=== PATIENT | male | born 1945 | race Caucasian/White ===

== ENCOUNTER 2020-01-05 14:50 | Inpatient (IN) | payer MEDICARE, BC, SELFPAY ==
[2020-01-05] VITALS (13 sets, daily range): BP systolic 114–138; BP diastolic 68–85; PULSE 39–62; RESP 16–40; TEMP 36.1–36.8; O2SAT 93–97; BMI 30.7
--- NOTE | 2020-01-05 | DI.ECHO.S_ITS ---
[facility] +---------+ [facility] +---------+ : : [address] : : : : [id number] : : : : Phone: [phone]+ Echocardiogram Report + + :Name: YANIRA HARMAN V Study Date: 01/06/2020 Height: 73 in : :[facility] Weight: 220 lb : : Gender: Male BSA: 2.2 m2 : :: 1945 Age: 74 yrs BP: 123/85 mmHg: :Reason For Study: DYSPNEA : :Ordering Physician: Karly KELLYformed By: Nella Collins : :Referring: PRATIK KELLY : + + Interpretation Summary Left ventricular systolic function is moderate to severely reduced with an estimated ejection fraction of 25 to 30% with a moderate dyssynchronous contraction pattern, suggestive of a conduction abnormality, but no obvious focal wall motion abnormality. Left ventricular volumes are moderately increased with an estimated end-diastolic volume of 152 mL. Diastolic function is challenging to assess but there is probable elevated filling pressures. The right ventricle is moderately enlarged with moderate to severely reduced systolic function. Pulmonary artery systolic pressure is estimated around 45 mmHg with a CVP of around 8 mmHg. There is severe biatrial enlargement. There is moderate mitral and tricuspid regurgitation. 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 and a severity ratio of 0.22. There is mild aortic regurgitation present. The ascending aorta is mildly enlarged. The patient appears to be in atrial fibrillation at 42 to 58 bpm throughout the study but clinical correlation is recommended. Procedure: A two-dimensional transthoracic echocardiogram with color flow and Doppler was performed. The study quality was technically adequate. There is no prior echocardiogram noted for this patient. The patient was in atrial fibrillation with heart rates between 42-58 bpm during the exam. The patient had occasional PVCs during the exam. Left Ventricle: The left ventricle is moderately dilated. The estimated left ventricular end diastolic volume is 152 ml. Left ventricular systolic function is moderate to severely reduced. The ejection fraction is estimated to be 25- 30%. There is moderate to severe global hypokinesis of the left ventricle. There is a significant dyssynchronous contraction pattern, consistent with a conduction abnormality. There are no focal wall motion abnormalities. Diastolic parameters suggest a restrictive filling pattern consistent with probable significantly elevated filling pressures. Right Ventricle: The right ventricle is moderately dilated. Right ventricular systolic function is moderate to severely reduced. Atria: Both atria are severely dilated. There is no Doppler evidence for an interatrial shunt. Mitral Valve: There is moderate mitral annular calcification. The mitral valve leaflets appear mildly thickened, but open well. There is moderate mitral regurgitation. Aortic Valve: The aortic valve is not well visualized. The aortic valve is severely calcified. There is severely reduced leaflet mobility. There is severe aortic stenosis. The peak aortic velocity is 4.9 m/sec. The aortic valve mean gradient is 52 mmHg. The calculated aortic valve area is .86 cm2. There is mild aortic regurgitation. Tricuspid Valve: The tricuspid valve leaflets are thin and pliable. There is moderate tricuspid regurgitation. The right ventricular systolic pressure is estimated to be at least 45 mmHg based on an estimated right atrial pressure of 8 mm Hg. Pulmonic Valve: The pulmonic valve leaflets are thin and pliable; valve motion is normal. There is trace pulmonic regurgitation. Great Vessels: The aortic root is normal size. The ascending aorta is mildly enlarged. The IVC is dilated (diameter is greater than 2.1 cm) yet it collapses greater than 50% with a sniff. This suggests a right atrial pressure of 8 mm Hg. Pericardium/ Pleura There is no pericardial effusion. MMode/2D Measurements & Calculations LVIDd: 5.1 cm LVOT diam: 2.2 cm LVIDs: 4.3 cm Ao root diam: 2.2 cm FS: 15.8 % asc Aorta Diam: 3.6 cm EPSS: 1.3 cm Ao Arch Diam (Prox Trans): 2.6 cm IVSd: 0.72 cm LVPWd: 0.91 cm LV prado. diameter/BSA (cm/m^2): 2.3 LV sys. diameter/BSA (cm/m^2): 1.9 LA A2 area: 39.0 cm2 RA long axis: 7.8 cm LA A4 area: 34.3 cm2 RA area: 32.1 cm2 LA length (vol): 8.0 cm RA vol: 112.4 ml LA vol: 142.6 ml RA : 50.1 ml/m2 LA vol index: 63.7 ml/m2 IVC diam: 2.1 cm RVD1 (basal): 4.6 cm TAPSE: 1.2 cm Doppler Measurements & Calculations Ao V2 max: 492.4 cm/sec LVOT Max Jose: 111.7 cm/sec Ao V2 mean: 340.2 cm/sec LV V1 max P.0 mmHg Ao max P.0 mmHg LV V1 VTI: 29.3 cm Ao mean P.5 mmHg DUONG(I,D): 0.86 cm2 Ao V2 VTI: 132.7 cm DUONG(V,D): 0.88 cm2 sev ratio: 0.22 DUONG indexed to BSA (cm^2/m^2): 0.38 MV E max jose: 103.6 cm/sec TR max jose: 303.9 cm/sec MV A max jose: 52.1 cm/sec TR max P.9 mmHg MV E/A: 2.0 PA V2 max: 99.8 cm/sec Med Peak E' Jose: 4.2 cm/sec PA V2 mean: 54.2 cm/sec E/E' med: 24.8 PA mean P.6 mmHg Lat Peak E' Jose: 5.5 cm/sec PA pr(Accel): 37.9 mmHg E/E' lat: 18.9 E/e' average: 21.9 MV dec time: 0.14 sec SV(LVOT): 114.2 ml Reading Physician:01:06 PM
--- NOTE | 2020-01-05 15:06 | DI.RAD.S_ITS ---
PROCEDURE: XR CHEST 2V INDICATIONS: shortness of breath TECHNIQUE: 2 views of the chest were acquired. COMPARISON: None. FINDINGS: Surgical changes and devices: None. Lungs and pleura: Right lower lung alveolar opacity and small right effusion. Patchy left lung base opacity. No left effusion. No pneumothorax. Interstitial markings are mildly thickened bilaterally. Mediastinum: Mediastinal contours are normal. Heart size is enlarged. Bones and chest wall: No suspicious bony abnormalities. Soft tissues appear unremarkable. IMPRESSION: 1. Bibasilar alveolar opacities and small right effusions. Findings may indicate pneumonia or mild edema. Dictated by: Kaylen Muller M.D. on 01/05/2020 at 15:10 Approved by: Kaylen Muller M.D. on 01/05/2020 at 15:12
--- NOTE | 2020-01-05 15:48 | ED_ITS ---
HPI - SOB/Dyspnea <Danyel CareyCRISTHIAN - Last Filed: 01/05/20 18:34> General Chief Complaint: Shortness of Breath/Dyspnea Stated Complaint: short of breath, anxiety Time Seen by Provider: 01/05/20 15:19 Source: patient Mode of arrival: Ambulatory Limitations: no limitations History of Present Illness HPI Narrative: This is a 74-year-old male, nonsmoker, has history of hypertension and hyperlipidemia presents to ED with spouse with chief complain of exertional dyspnea, orthopnea that is causing him to have panic attacks night, right foot swelling, lack of energy which started about 6-7 months ago but became severely worse for last 4-5 days. Patient reports he has to stop to catch breath walking a short distance. Patient denies chest pain, fever, chills, nausea, vomiting, cough, sore throat, or recent exposure to Covid 19. Patient moved from [facility] to [place] and does not have PCP in town. 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 Currently he is taking Dilt 180 mg ER daily for hypertension. Patient also takes Losartan and full dose of ASA, Atorvastatin. Patient reports stop taking HCTZ about 1.5 years ago. Spouse states his heart rates been in mid 50s for last 1 year. Related Data Home Medications Medication Instructions Recorded Confirmed OMEGA-3/DHA/EPA/FISH OIL (Seadrift-3 3,000 units PO DAILY #0 12/05/10 01/05/20 Fish Oil Softgel) allopurinol 300 mg PO QDAY #0 12/05/10 01/05/20 losartan [Cozaar] 100 mg PO BEDTIME #0 12/05/10 01/05/20 aspirin 325 mg PO DAILY 01/05/20 01/05/20 atorvastatin 40 mg PO BEDTIME 01/05/20 01/05/20 cholecalciferol (vitamin D3) 50 mcg PO DAILY 01/05/20 01/05/20 [Vitamin D3] cyanocobalamin (vitamin B-12) 5,000 mcg PO DAILY 01/05/20 01/05/20 diltiazem HCl 180 mg PO DAILY 01/05/20 01/05/20 Allergies Allergy/AdvReac Type Severity Reaction Status Date / Time No Known Drug Allergies Allergy Verified 01/05/20 15:07 Review of Systems <CRISTHIAN Fernandes - Last Filed: 01/05/20 18:34> Review of Systems Narrative: General: Denies fever, chills, (+) fatigue, (+) malaise, sweats. HEENT: Denies sinus pain, ear pain, sore throat, difficulty swallowing, dizziness. Respiratory: See HPI Cardiovascular: See HPI Gastrointestinal: Denies nausea, vomiting, abdominal pain, diarrhea, constipation, melena. : Denies dysuria, frequency, incontinence, hematuria, urinary retention. Musculoskeletal: Denies weakness, joint pain or bony pain. Skin: Denies rash, skin lesions, or other. Neurologic: Denies weakness, headache, numbness, change in speech, confusion, seizures, incoordination. Psychiatric: No concerning psychosocial issues. 12-point review of systems is negative except for those stated above. Patient History <CRISTHIAN Fernandes - Last Filed: 01/05/20 18:34> Medical History (Updated 01/05/20 @ 20:37 by CRISTHIAN Luna) Elevated PSA (Acute) Gout (Acute) Hyperlipidemia (Acute) Hypertension (Acute) Surgical History (Updated 01/05/20 @ 20:38 by CRISTHIAN Luna) History of left hip replacement (Acute) Family History (Updated 01/05/20 @ 20:39 by CRISTHIAN Luna) Father Lung cancer Tobacco use disorder, severe, in controlled environment, dependence Mother Dementia Social History household members: spouse Smoking Status: Never smoker alcohol intake: current substance use type: does not use Smoking Status: Unknown if ever smoked alcohol intake frequency: 0-2 drinks per day Substance Use Type: does not use Exam <CRISTHIAN Fernandes - Last Filed: 01/05/20 18:34> Narrative Exam Narrative: GEN: Alert, oriented x 3, well appearing and nourished. Mild tachypnea rate in 30/min. Head: Normal cephalic, atraumatic. No scalp or temporal tenderness, palpable mass or rash. EYES: Pupils are equal, round, and reactive to light and accommodation. Extraocular muscles are intact bilaterally. There is no subconjunctival hemorrhage, exudate and sclera non-icteric. ENT: Hearing grossly intact. Nose without bleeding, purulent discharge or de viation. Facial sinuses nontender to palpate. Mucous membrane moist, no mucosal lesion. Throat without erythema, tonsillar hypertrophy or exudate. Uvula in midline, airway patent. Neck: Trachea in midline. No JVD, non-tender without lymphadenopathy. No masses or thyroid megaly. Supple, non-tender and no meningeal signs. CARDIAC: Slow irregular rate and rhythm with murmurs. No gallops, or rubs. No chest wall tenderness. Plus one peripheral edema in right foot, No cyanosis or pallor. Capillary refill is less than 2 seconds. RESPIRATORY: Lungs are clear to auscultate bilaterally. No cough, wheezes, rales, or rhonchi. No stridor, respiratory distress, increase work of breathing , but tachypnea rate in 30/min. No accessary muscle used. ABD: Abdomen soft, nontender and non-distended. No guarding or rebound tenderness to palpate. Bowel sounds are normal in all 4 quadrants. There is no palpable masses or organomegaly. EXT: Full painless ROM of all extremities with no loss of sensation, strength, effusion or edema. SKIN: Warm, dry, normal color for patient. No erythema, lesions or rash over visible areas. BACK: Nontender without deformity or crepitance. No flank tenderness. NEUROLOGICAL: Alert and oriented to place, time and person. Sensation and motor function intact bilaterally. No facial droops, dysphasia. PSYCHIATRIC: Good judgement and reason, without hallucinations, abnormal affect or abnormal behaviors during the examination. Patient is not suicidal. Initial Vital Signs Initial Vital Signs: Vital Signs Temperature 98.1 F 01/05/20 15:02 Pulse Rate 55 L 01/05/20 15:02 Respiratory Rate 24 01/05/20 15:02 Blood Pressure 138/74 01/05/20 15:02 Pulse Oximetry 94 01/05/20 15:02 <Lin Xavier MD - Last Filed: 01/06/20 07:23> Initial Vital Signs Initial Vital Signs: Vital Signs Temperature 98.1 F 01/05/20 15:02 Pulse Rate 55 L 01/05/20 15:02 Respiratory Rate 24 01/05/20 15:02 Blood Pressure 138/74 01/05/20 15:02 Pulse Oximetry 94 01/05/20 15:02 Scores <Danyel Carey [facility] - Last Filed: 01/05/20 18:34> GCS Rebecca coma scale eye opening: Spontaneous [place] coma scale verbal response: Orientated Rebecca coma scale motor response: Obey commands [place] coma scale total score: 15 HEART Score Heart Score history: Moderately Suspicious Heart Score EKG: Non-Specific repolarization disturbance Heart Score Age: > or = 65 years old Heart Score risk factors: 1-2 risk factors Heart Score troponin: < or = to normal limit Heart Score Total: 5 Course <Danyel Carey [facility] - Last Filed: 01/05/20 18:34> Orders Ordered: Acetaminophen (Tylenol) 650 mg PO Q6HR PRN PRN Reason: Fever/Mild Pain (1-3) Allopurinol (Zyloprim) 300 mg PO DAILY [facility] Aspirin (Aspirin Ec) 81 mg PO DAILY [facility] Atorvastatin Calcium (Lipitor) 40 mg PO BEDTIME [facility] Last Admin: 01/05/20 21:03 Dose: 40 mg Documented by: KERMIT Diltiazem HCl (Cardizem Sr) 60 mg PO BID [facility] Diphenhydramine HCl (Benadryl) 25 mg PO BEDTIME PRN PRN Reason: Insomnia Enoxaparin Sodium (Lovenox) 40 mg SUBCUT DAILY [facility] Furosemide (Lasix) 40 mg IV 08,1999 [facility] Losartan Potassium (Cozaar) 100 mg PO BEDTIME [facility] Last Admin: 01/05/20 21:02 Dose: 100 mg Documented by: KERMIT Ondansetron HCl (Zofran) 4 mg IV Q8HR PRN PRN Reason: Nausea And Vomiting Sodium Chloride (Normal Saline 0.9% Flush) 10 ml IV PRN PRN PRN Reason: Flush Sodium Chloride (Normal Saline 0.9% Flush) 10 ml IV BID [facility] Discontinued Medications Furosemide (Lasix) 40 mg IV NOW ONE Stop: 01/05/20 17:01 Last Admin: 01/05/20 17:26 Dose: 40 mg Documented by: CODY Furosemide (Lasix) 40 mg IV NOW ONE Stop: 01/05/20 20:31 Last Admin: 01/05/20 21:09 Dose: 40 mg Documented by: KERMIT Reevaluation(s) Reevaluation #1: Patient has been on oxygen 3 L nasal cannula due to hypoxia at 91% in room air. Patient was setting 95% with using nasal cannula oxygen. Time: 17:20 Consultations Consultation #1: Dr. Carlisle consulted for admission for symptomatic heart failure with elevated proBNP and hypoxia, slow AFib rate in 40s to 50s who is currently taking diltiazem 180 mg ER daily and treatment with diuresis and further workup since patient does not have primary care physician and patient's librarian locally and reporting no history of AFib or heart failure in the past. Dr. Carlisle states will evaluate the patient at bedside in ER. Time: 17:13 Consultation #2: Dr. eVga call back to informed the acceptance of patient's care under observation for heart failure Time: 17:25 Vital Signs Vital signs: Vital Signs - 8 hr 01/05/20 15:02 01/05/20 15:13 01/05/20 15:30 Temperature 98.1 F Pulse Rate 55 L 53 L Respiratory Rate 24 24 Blood Pressure 138/74 129/78 Pulse Oximetry 94 94 01/05/20 15:31 01/05/20 16:00 01/05/20 16:15 Temperature Pulse Rate 55 L 62 52 L Respiratory Rate 25 H 24 31 H Blood Pressure 121/73 138/79 Pulse Oximetry 93 93 93 01/05/20 16:30 01/05/20 17:00 Temperature Pulse Rate 41 L 39 L Respiratory Rate 23 24 Blood Pressure 117/68 116/77 Pulse Oximetry 97 95 <Lin Xavier MD - Last Filed: 01/06/20 07:23> Orders Ordered: Acetaminophen (Tylenol) 650 mg PO Q6HR PRN PRN Reason: Fever/Mild Pain (1-3) Allopurinol (Zyloprim) 300 mg PO DAILY [facility] Aspirin (Aspirin Ec) 81 mg PO DAILY [facility] Atorvastatin Calcium (Lipitor) 40 mg PO BEDTIME [facility] Last Admin: 01/05/20 21:03 Dose: 40 mg Documented by: KERMIT Diltiazem HCl (Cardizem Sr) 60 mg PO BID [facility] Diphenhydramine HCl (Benadryl) 25 mg PO BEDTIME PRN PRN Reason: Insomnia Enoxaparin Sodium (Lovenox) 40 mg SUBCUT DAILY [facility] Furosemide (Lasix) 40 mg IV 0800,2000 [facility] Losartan Potassium (Cozaar) 100 mg PO BEDTIME [facility] Last Admin: 01/05/20 21:02 Dose: 100 mg Documented by: KERMIT Ondansetron HCl (Zofran) 4 mg IV Q8HR PRN PRN Reason: Nausea And Vomiting Sodium Chloride (Normal Saline 0.9% Flush) 10 ml IV PRN PRN PRN Reason: Flush Sodium Chloride (Normal Saline 0.9% Flush) 10 ml IV BID [facility] Discontinued Medications Furosemide (Lasix) 40 mg IV NOW ONE Stop: 01/05/20 17:01 Last Admin: 01/05/20 17:26 Dose: 40 mg Documented by: CODY Furosemide (Lasix) 40 mg IV NOW ONE Stop: 01/05/20 20:31 Last Admin: 01/05/20 21:09 Dose: 40 mg Documented by: KERMIT Vital Signs Vital signs: Vital Signs - 8 hr 01/05/20 15:02 01/05/20 15:13 01/05/20 15:30 Temperature 98.1 F Pulse Rate 55 L 53 L Respiratory Rate 24 24 Blood Pressure 138/74 129/78 Pulse Oximetry 94 94 01/05/20 15:31 01/05/20 16:00 01/05/20 16:15 Temperature Pulse Rate 55 L 62 52 L Respiratory Rate 25 H 24 31 H Blood Pressure 121/73 138/79 Pulse Oximetry 93 93 93 01/05/20 16:30 01/05/20 17:00 Temperature Pulse Rate 41 L 39 L Respiratory Rate 23 24 Blood Pressure 117/68 116/77 Pulse Oximetry 97 95 MDM - SOB/Dyspnea <Danyel CRISTHIAN Carey - Last Filed: 01/05/20 18:34> Differential Diagnosis Differential diagnosis: Likely congestive heart failure and other (Slow/Adithya AFib, NSTEMI) Medical Records Attestation: I reviewed the patient's medical records. Lab Data Attestation: I reviewed the patient's lab results. Result diagrams: 01/06/20 03:38 01/06/20 03:38 Labs: Lab Results 01/05/20 01/05/20 01/05/20 Range/Units 16:00 16:00 16:00 WBC 5.7 (4.5-11.0) X10^3/uL RBC 4.77 (4.5-5.9) X10^6/uL Hgb 15.7 (13.5-17.5) g/dL Hct 47.5 (41-53) % MCV 99.6 (80-100) fL MCH 33.0 (26-34) PG MCHC 33.1 (30-36) % RDW 16.2 H (11.6-14.8) % Plt Count 127 L (150-400) X10^3/uL Neut % (Auto) 56.4 (50-75) % Lymph % (Auto) 29.3 (25-40) % [place] % (Auto) 12.1 (3-14) % Eos % (Auto) 1.1 L (2-4) % Baso % (Auto) 1.1 (0-2) % Neut # (Auto) 3200 (1766-0875) /uL Lymph # (Auto) 1700 (9800-9701) /uL [place] # (Auto) 700 (0-900) /uL Eos # (Auto) 100 (0-450) /uL Baso # (Auto) 100 (0-100) /uL PT (10.1-12.7) SECONDS INR (0.9-1.3) APTT (26.4-36.2) SECONDS Sodium 138 (137-145) mmol/L Potassium 4.5 (3.4-5.1) mmol/L Chloride 101 (98-107) mmol/L Carbon Dioxide 29 (22-32) mmol/L BUN 17 (9-20) mg/dL Creatinine 0.85 (0.66-1.25) mg/dL Estimated GFR > 60.0 (>60) mL/min BUN/Creatinine Ratio 20.0 (6-22) Glucose 96 (80-110) mg/dL Calcium 9.4 (8.4-10.2) mg/dL Magnesium (1.6-2.3) mg/dL Total Bilirubin 1.0 (0.2-1.3) mg/dL AST 48 (17-59) IU/L ALT 27 (<50) IU/L Alkaline Phosphatase 221 H (38-126) U/L Total Creatine Kinase 135 (55-170) U/L CK-MB (CK-2) 2.22 (<2.37) ng/mL CK-MB (CK-2) Rel Index 1.6 (1.5-5.0) % Troponin I 0.016 (0.01-0.034) ng/mL NT-Pro-B Natriuret Pep 1540 H (<450) pg/mL Total Protein 7.8 (6.3-8.2) g/dL Albumin 4.2 (3.5-5.0) g/dL Globulin 3.6 (1.7-4.1) g/dL Albumin/Globulin Ratio 1.2 (1.0-2.8) Lipase 102 (23-300) U/L Procalcitonin (<0.5) ng/mL COVID-19 PCR (Negative) 01/05/20 01/05/20 01/05/20 Range/Units 16:00 16:00 16:00 WBC (4.5-11.0) X10^3/uL RBC (4.5-5.9) X10^6/uL Hgb (13.5-17.5) g/dL Hct (41-53) % MCV (80-100) fL MCH (26-34) PG MCHC (30-36) % RDW (11.6-14.8) % Plt Count (150-400) X10^3/uL Neut % (Auto) (50-75) % Lymph % (Auto) (25-40) % [place] % (Auto) (3-14) % Eos % (Auto) (2-4) % Baso % (Auto) (0-2) % Neut # (Auto) (0730-2983) /uL Lymph # (Auto) (0637-0192) /uL [place] # (Auto) (0-900) /uL Eos # (Auto) (0-450) /uL Baso # (Auto) (0-100) /uL PT 13.7 H (10.1-12.7) SECONDS INR 1.2 (0.9-1.3) APTT 31 (26.4-36.2) SECONDS Sodium (137-145) mmol/L Potassium (3.4-5.1) mmol/L Chloride (98-107) mmol/L Carbon Dioxide (22-32) mmol/L BUN (9-20) mg/dL Creatinine (0.66-1.25) mg/dL Estimated GFR (>60) mL/min BUN/Creatinine Ratio (6-22) Glucose (80-110) mg/dL Calcium (8.4-10.2) mg/dL Magnesium 2.0 (1.6-2.3) mg/dL Total Bilirubin (0.2-1.3) mg/dL AST (17-59) IU/L ALT (<50) IU/L Alkaline Phosphatase (38-126) U/L Total Creatine Kinase (55-170) U/L CK-MB (CK-2) (<2.37) ng/mL CK-MB (CK-2) Rel Index (1.5-5.0) % Troponin I (0.01-0.034) ng/mL NT-Pro-B Natriuret Pep (<450) pg/mL Total Protein (6.3-8.2) g/dL Albumin (3.5-5.0) g/dL Globulin (1.7-4.1) g/dL Albumin/Globulin Ratio (1.0-2.8) Lipase (23-300) U/L Procalcitonin (<0.5) ng/mL COVID-19 PCR Negative (Negative) 01/05/20 Range/Units 16:00 WBC (4.5-11.0) X10^3/uL RBC (4.5-5.9) X10^6/uL Hgb (13.5-17.5) g/dL Hct (41-53) % MCV (80-100) fL MCH (26-34) PG MCHC (30-36) % RDW (11.6-14.8) % Plt Count (150-400) X10^3/uL Neut % (Auto) (50-75) % Lymph % (Auto) (25-40) % [place] % (Auto) (3-14) % Eos % (Auto) (2-4) % Baso % (Auto) (0-2) % Neut # (Auto) (0670-6213) /uL Lymph # (Auto) (1300-0011) /uL [place] # (Auto) (0-900) /uL Eos # (Auto) (0-450) /uL Baso # (Auto) (0-100) /uL PT (10.1-12.7) SECONDS INR (0.9-1.3) APTT (26.4-36.2) SECONDS Sodium (137-145) mmol/L Potassium (3.4-5.1) mmol/L Chloride (98-107) mmol/L Carbon Dioxide (22-32) mmol/L BUN (9-20) mg/dL Creatinine (0.66-1.25) mg/dL Estimated GFR (>60) mL/min BUN/Creatinine Ratio (6-22) Glucose (80-110) mg/dL Calcium (8.4-10.2) mg/dL Magnesium (1.6-2.3) mg/dL Total Bilirubin (0.2-1.3) mg/dL AST (17-59) IU/L ALT (<50) IU/L Alkaline Phosphatase (38-126) U/L Total Creatine Kinase (55-170) U/L CK-MB (CK-2) (<2.37) ng/mL CK-MB (CK-2) Rel Index (1.5-5.0) % Troponin I (0.01-0.034) ng/mL NT-Pro-B Natriuret Pep (<450) pg/mL Total Protein (6.3-8.2) g/dL Albumin (3.5-5.0) g/dL Globulin (1.7-4.1) g/dL Albumin/Globulin Ratio (1.0-2.8) Lipase (23-300) U/L Procalcitonin < 0.05 (<0.5) ng/mL COVID-19 PCR (Negative) Imaging Data Chest x-ray: Radiologist's Impression: [address] [id number] XRay Report Signed Patient: Lee Gleason R#: [id number] : 3Acct:[id number] Age/Sex: 74 / MDate of Service: 01/05/20 Loc: ED Accession Number: [id number] Procedure: XR chest 2V Ordering Provider: Lin Xavier MD PROCEDURE: XR CHEST 2V INDICATIONS: shortness of breath TECHNIQUE: 2 views of the chest were acquired. COMPARISON: None. FINDINGS: Surgical changes and devices: None. Lungs and pleura: Right lower lung alveolar opacity and small right effusion. Patchy left lung base opacity. No left effusion. No pneumothorax. Interstitial karla ings are mildly thickened bilaterally. Mediastinum: Mediastinal contours are normal. Heart size is enlarged. Bones and chest wall: No suspicious bony abnormalities. Soft tissues appear unremarkable. IMPRESSION: 1. Bibasilar alveolar opacities and small right effusions. Findings may ind icate pneumonia or mild edema. Dictated by: Kaylen Muller M.D. on 01/05/2020 at 15:10 Approved by: Kaylen Muller M.D. on 01/05/2020 at 15:12 ECG Data Attestation: I personally reviewed and interpreted this ECG as follows: Prior ECG tracings: not available for review Interpretation: Atrial fibrillatio with rate at 54 with PVC Left dominant axis. FL interval *, QRS duration 104, QT/QTC 332/[address] changes MDM Narrative Medical decision making narrative: This is a 74-year-old male who has history of hypertension presents to ED with worsening symptoms exertional dyspnea, orthopnea, right leg swelling for last 4-5 days. Patient initially noticed this about 6-7 months ago and noticed more frequent last 4-5 days but now it is causing him like panic attacks and afraid to go to sleep due to orthopnea. Patient also reports fatigue. No chest pain, fever, nausea, vomiting, chills, c ough, sore throat. EKG shows slow AFib rate at 50s. Bedside heart rate runs from low 40s to 50. Patient is currently taking Dilt ER 180 mg daily and losartan 100 mg daily. Patient is slow AFib is likely due to super therapeutic diltiazem effect. Patient is taking full dose aspirin daily but no other anticoagulants. Patient denies history of heart failure but used to take HCTZ that stopped 1 and half year ago. Physical exam appreciated murmur worse in left-sided sternal border and irregular to auscultate. Chest x-ray shows bibasilar alveolar opacity and small right effusion indicating pneumonia or mild edema. Given patient does not have fever and cough, it is likely patient has pulmonary edema. Stable H&H of 15.7/47.5. Slightly low in platelet count of 127. PT is 13.7 with INR of 1.2. Normal kidney function and unremarkable chemistry test. Slightly elevated alkaline phosphatase of 221. ProBNP is 15 40 indicating patient is fluid overloaded. Normal lipase today. Troponin is 0.016. Patient given 14 mg of IV Lasix and has been voiding. Patient was given O2 by nasal cannula on 3 L to have O2 sat greater than 93% in ED. at 1 point patient was satting 91% in room air at rest. Given patient does not have PCP established locally and states no history of AFib or heart failure, it to be best for patient to be admitted for additional workup such as echocardiogram and adjusting his medications to improve AFib bradycardia and diuretics for heart failure. Dr. Carlisle kindly accepted the patient's care. <Lin Xavier MD - Last Filed: 01/06/20 07:23> Lab Data Labs: Lab Results 01/05/20 01/05/20 01/05/20 Range/Units 16:00 16:00 16:00 WBC 5.7 (4.5-11.0) X10^3/uL RBC 4.77 (4.5-5.9) X10^6/uL Hgb 15.7 (13.5-17.5) g/dL Hct 47.5 (41-53) % MCV 99.6 (80-100) fL MCH 33.0 (26-34) PG MCHC 33.1 (30-36) % RDW 16.2 H (11.6-14.8) % Plt Count 127 L (150-400) X10^3/uL Neut % (Auto) 56.4 (50-75) % Lymph % (Auto) 29.3 (25-40) % [place] % (Auto) 12.1 (3-14) % Eos % (Auto) 1.1 L (2-4) % Baso % (Auto) 1.1 (0-2) % Neut # (Auto) 3200 (6519-2095) /uL Lymph # (Auto) 1700 (9582-9006) /uL [place] # (Auto) 700 (0-900) /uL Eos # (Auto) 100 (0-450) /uL Baso # (Auto) 100 (0-100) /uL PT (10.1-12.7) SECONDS INR (0.9-1.3) APTT (26.4-36.2) SECONDS Sodium 138 (137-145) mmol/L Potassium 4.5 (3.4-5.1) mmol/L Chloride 101 (98-107) mmol/L Carbon Dioxide 29 (22-32) mmol/L BUN 17 (9-20) mg/dL Creatinine 0.85 (0.66-1.25) mg/dL Estimated GFR > 60.0 (>60) mL/min BUN/Creatinine Ratio 20.0 (6-22) Glucose 96 (80-110) mg/dL Calcium 9.4 (8.4-10.2) mg/dL Magnesium (1.6-2.3) mg/dL Total Bilirubin 1.0 (0.2-1.3) mg/dL AST 48 (17-59) IU/L ALT 27 (<50) IU/L Alkaline Phosphatase 221 H (38-126) U/L Total Creatine Kinase 135 (55-170) U/L CK-MB (CK-2) 2.22 (<2.37) ng/mL CK-MB (CK-2) Rel Index 1.6 (1.5-5.0) % Troponin I 0.016 (0.01-0.034) ng/mL NT-Pro-B Natriuret Pep 1540 H (<450) pg/mL Total Protein 7.8 (6.3-8.2) g/dL Albumin 4.2 (3.5-5.0) g/dL Globulin 3.6 (1.7-4.1) g/dL Albumin/Globulin Ratio 1.2 (1.0-2.8) Lipase 102 (23-300) U/L Procalcitonin (<0.5) ng/mL COVID-19 PCR (Negative) 01/05/20 01/05/20 01/05/20 Range/Units 16:00 16:00 16:00 WBC (4.5-11.0) X10^3/uL RBC (4.5-5.9) X10^6/uL Hgb (13.5-17.5) g/dL Hct (41-53) % MCV (80-100) fL MCH (26-34) PG MCHC (30-36) % RDW (11.6-14.8) % Plt Count (150-400) X10^3/uL Neut % (Auto) (50-75) % Lymph % (Auto) (25-40) % [place] % (Auto) (3-14) % Eos % (Auto) (2-4) % Baso % (Auto) (0-2) % Neut # (Auto) (3610-3759) /uL Lymph # (Auto) (2661-1189) /uL [place] # (Auto) (0-900) /uL Eos # (Auto) (0-450) /uL Baso # (Auto) (0-100) /uL PT 13.7 H (10.1-12.7) SECONDS INR 1.2 (0.9-1.3) APTT 31 (26.4-36.2) SECONDS Sodium (137-145) mmol/L Potassium (3.4-5.1) mmol/L Chloride (98-107) mmol/L Carbon Dioxide (22-32) mmol/L BUN (9-20) mg/dL Creatinine (0.66-1.25) mg/dL Estimated GFR (>60) mL/min BUN/Creatinine Ratio (6-22) Glucose (80-110) mg/dL Calcium (8.4-10.2) mg/dL Magnesium 2.0 (1.6-2.3) mg/dL Total Bilirubin (0.2-1.3) mg/dL AST (17-59) IU/L ALT (<50) IU/L Alkaline Phosphatase (38-126) U/L Total Creatine Kinase (55-170) U/L CK-MB (CK-2) (<2.37) ng/mL CK-MB (CK-2) Rel Index (1.5-5.0) % Troponin I (0.01-0.034) ng/mL NT-Pro-B Natriuret Pep (<450) pg/mL Total Protein (6.3-8.2) g/dL Albumin (3.5-5.0) g/dL Globulin (1.7-4.1) g/dL Albumin/Globulin Ratio (1.0-2.8) Lipase (23-300) U/L Procalcitonin (<0.5) ng/mL COVID-19 PCR Negative (Negative) 01/05/20 Range/Units 16:00 WBC (4.5-11.0) X10^3/uL RBC (4.5-5.9) X10^6/uL Hgb (13.5-17.5) g/dL Hct (41-53) % MCV (80-100) fL MCH (26-34) PG MCHC (30-36) % RDW (11.6-14.8) % Plt Count (150-400) X10^3/uL Neut % (Auto) (50-75) % Lymph % (Auto) (25-40) % [place] % (Auto) (3-14) % Eos % (Auto) (2-4) % Baso % (Auto) (0-2) % Neut # (Auto) (4751-0217) /uL Lymph # (Auto) (0640-5484) /uL [place] # (Auto) (0-900) /uL Eos # (Auto) (0-450) /uL Baso # (Auto) (0-100) /uL PT (10.1-12.7) SECONDS INR (0.9-1.3) APTT (26.4-36.2) SECONDS Sodium (137-145) mmol/L Potassium (3.4-5.1) mmol/L Chloride (98-107) mmol/L Carbon Dioxide (22-32) mmol/L BUN (9-20) mg/dL Creatinine (0.66-1.25) mg/dL Estimated GFR (>60) mL/min BUN/Creatinine Ratio (6-22) Glucose (80-110) mg/dL Calcium (8.4-10.2) mg/dL Magnesium (1.6-2.3) mg/dL Total Bilirubin (0.2-1.3) mg/dL AST (17-59) IU/L ALT (<50) IU/L Alkaline Phosphatase (38-126) U/L Total Creatine Kinase (55-170) U/L CK-MB (CK-2) (<2.37) ng/mL CK-MB (CK-2) Rel Index (1.5-5.0) % Troponin I (0.01-0.034) ng/mL NT-Pro-B Natriuret Pep (<450) pg/mL Total Protein (6.3-8.2) g/dL Albumin (3.5-5.0) g/dL Globulin (1.7-4.1) g/dL Albumin/Globulin Ratio (1.0-2.8) Lipase (23-300) U/L Procalcitonin < 0.05 (<0.5) ng/mL COVID-19 PCR (Negative) Discharge Plan Departure Patient Disposition: Admitted as Observation Clinical Impression: Shortness of breath A-fib Qualifiers: Atrial fibrillation type: unspecified Qualified Code(s): I48.91 - Unspecified atrial fibrillation Heart failure Qualifiers: Heart failure type: unspecified Heart failure chronicity: acute Qualified Code(s): I50.9 - Heart failure, unspecified Discharge Date/Time: 01/05/20 18:29 Admit Date/Time: 01/05/20 17:27 Admit Provider: Lyle Carlisle <Lin Xavier MD - Last Filed: 01/06/20 07:23> Cosign ED Attending Cosignature Attestation: I was immediately available in the department for consultation throughout this patient's visit. I agree with documentation as above. Lin Xavier MD
[2020-01-05 16:18] LABS: Add Manual Diff / Slide Review NO; Basophils Absolute Auto 100 /uL (0-100); Basophils Percent Auto 1.1 % (0-2); Eosinophils Absolute Auto 100 /uL (0-450); Eosinophils Percent Auto 1.1 % (2-4); Hematocrit 47.5 % (41-53); Hemoglobin 15.7 g/dL (13.5-17.5); Lymphocytes Absolute Auto 1700 /uL (1100-4500); Lymphocytes Percent Auto 29.3 % (25-40); Mean Corpuscular HGB Conc 33.1 % (30-36); Mean Corpuscular Volume 99.6 fL (80-100); Monocytes Absolute Auto 700 /uL (0-900); Monocytes Percent Auto 12.1 % (3-14); Neutrophils Absolute Auto 3200 /uL (1500-7000); Neutrophils Percent Auto 56.4 % (50-75); Platelet Count 127 X10^3/uL (150-400); Red Blood Cell Count 4.77 X10^6/uL (4.5-5.9); Red Cell Distribution Width 16.2 % (11.6-14.8); White Blood Cell Count 5.7 X10^3/uL (4.5-11.0)
[2020-01-05 16:30] LABS: INR 1.2 (0.9-1.3); Prothrombin Time 13.7 SECONDS (10.1-12.7)
[2020-01-05 16:32] LABS: COVID19 -Nasal RAPID Negative (Negative)
[2020-01-05 16:33] LABS: PTT Partial Thromboplastin Tim 31 SECONDS (26.4-36.2)
[2020-01-05 16:43] LABS: Creatine Kinase 135 U/L (55-170); Lipase 102 U/L (23-300)
[2020-01-05 16:46] LABS: Alanine Aminotransferase 27 IU/L (<50); Albumin 4.2 g/dL (3.5-5.0); Albumin Globulin Ratio 1.2 (1.0-2.8); Alkaline Phosphatase 221 U/L (38-126); Aspartate Aminotransferase 48 IU/L (17-59); Blood Urea Nitrogen 17 mg/dL (9-20); Calcium 9.4 mg/dL (8.4-10.2); Carbon Dioxide 29 mmol/L (22-32); Chloride 101 mmol/L (98-107); Estimated Glomerular Filt Rate > 60.0 mL/min (>60); Globulin 3.6 g/dL (1.7-4.1); Glucose 96 mg/dL (80-110); HEMOLYSIS < 15 (0-50); Potassium 4.5 mmol/L (3.4-5.1); Sodium 138 mmol/L (137-145); Total Protein 7.8 g/dL (6.3-8.2)
[2020-01-05 16:55] LABS: NT-proBNP (BNP-Adult 18+) 1540 pg/mL (<450); Troponin I 0.016 ng/mL (0.01-0.034)
[2020-01-05 17:01] LABS: CKMB % Relative Index 1.6 % (1.5-5.0); Creatine Kinase MB 2.22 ng/mL (<2.37)
[2020-01-05] MEDS: FUROSEMIDE 40 MG/4 ML VIAL IV ×2 (17:26→21:09)
--- NOTE | 2020-01-05 20:21 | PM.HP.1 ---
History of Present Illness History of Present Illness Date Patient Seen: 01/05/20 Time Patient Seen: 19:30 Chief complaint: short of breath, anxiety Narrative: Lee Gleason is a pleasant 74 y.o. 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 A few months ago, he noted he was 220 lbs and went on a diet eliminating alcohol, carbs and sweets. He dropped approximately 10 lbs then noticed he was gaining weight, particularly in his stomach and lower extremities. States that he feels pressure in his lower gut. He denies fever, diaphoresis, chills, vision changes or headaches, chest pain, nausea or vomiting , diarrhea or constipation. He is currently experiencing frequent urination with weak volume and stream, was recently referred to Dr. Timbo Groves, Urologist of the [facility] for further workup of an elevated PSA. Chest x-ray report indicated Bibasilar alveolar opacities and small right effusions. Findings may indicate pneumonia or mild edema. Patient is afebrile, blood pressure 131/73, heart rate 45, respiratory rate 27, oxygen saturation 94% on room air, he weighs 99.7 kg with a BMI of 30.7. CBC is largely within normal limits except for a mildly decreased platelet count of 127, coags were normal, BMP largely within normal limits, does have an elevated alk-phos at 221, magnesium normal at 2.0, troponin was 0.016, proBNP 15 40, his COVID-19 negative, procalcitonin is pending. Patient History Medical History (Updated 01/05/20 @ 20:37 by CRISTHIAN Luna) Elevated PSA (Acute) Gout (Acute) Hyperlipidemia (Acute) Hypertension (Acute) Surgical History (Updated 01/05/20 @ 20:38 by CRISTHIAN Luna) History of left hip replacement (Acute) Family & Social History Family History (Updated 01/05/20 @ 20:39 by CRISTHIAN Luna) Father Lung cancer Tobacco use disorder, severe, in controlled environment, dependence Mother Dementia Social History: household members spouse Prior Living Arrangements House Safety & Behavioral: Feels Safe in Current Yes Environment Been Physically Hurt or No Threatened By a Person Suicidal Ideation Description None Suicide Plan Description No Plan Tobacco & Substance use: Smoking Status Never smoker alcohol intake current alcohol intake frequency 0-2 drinks per day Substance Use Type does not use Meds Home Medications and Allergies Home Medications Medication Instructions Recorded Confirmed Type OMEGA-3/DHA/EPA/FISH OIL ([place]-3 3,000 units PO DAILY #0 12/05/10 01/05/20 History Fish Oil Softgel) allopurinol 300 mg PO QDAY #0 12/05/10 01/05/20 History losartan [Cozaar] 100 mg PO BEDTIME #0 12/05/10 01/05/20 History aspirin 325 mg PO DAILY 01/05/20 01/05/20 History atorvastatin 40 mg PO BEDTIME 01/05/20 01/05/20 History cholecalciferol (vitamin D3) 50 mcg PO DAILY 01/05/20 01/05/20 History [Vitamin D3] cyanocobalamin (vitamin B-12) 5,000 mcg PO DAILY 01/05/20 01/05/20 History diltiazem HCl 180 mg PO DAILY 01/05/20 01/05/20 History Allergies Allergy/AdvReac Type Severity Reaction Status Date / Time No Known Drug Allergies Allergy Verified 01/05/20 15:07 Review of Systems Review of Systems ROS: Yes All systems reviewed with the patient and are negative except as otherwise documented Exam Vital Signs (past 8 hours): - 01/05/20 15:02 01/05/20 15:13 01/05/20 15:30 Temperature 98.1 F Pulse Rate 55 L 53 L Respiratory Rate 24 24 Blood Pressure 138/74 129/78 Pulse Oximetry 94 94 01/05/20 15:31 01/05/20 16:00 01/05/20 16:15 Temperature Pulse Rate 55 L 62 52 L Respiratory Rate 25 H 24 31 H Blood Pressure 121/73 138/79 Pulse Oximetry 93 93 93 01/05/20 16:30 01/05/20 17:00 01/05/20 17:30 Temperature Pulse Rate 41 L 39 L 50 L Respiratory Rate 23 24 40 H Blood Pressure 117/68 116/77 Pulse Oximetry 97 95 93 01/05/20 17:31 01/05/20 18:00 Temperature Pulse Rate 46 L 45 L Respiratory Rate 31 H 27 H Blood Pressure 138/76 131/73 Pulse Oximetry 93 94 Oxygen Delivery Method Room Air Narrative Exam Narrative: Gen: Alert, oriented, well-developed 74 y.o. male, NAD HEENT: normocephalic, atraumatic, conjunctiva clear, sclera non-icteric, oral mucosa pink and moist Neck: supple, full ROM, no JVD, trachea is midline Resp: Lungs CTA, non-labored breathing CV: Bradycardic but regular, no murmur or rubs Abd: Obese, distended, non-tender, normoactive BTs Skin: no lesions or rashes, dry and intact Neuro: Alert and oriented X 4 w/no focal deficits. Speech clear and coherent. Extremities: moves all 4 extremities, is ambulatory, negative Maxwell?s sign Psyche: pleasant, normal mood and affect. Objective Labs Result Diagrams: 01/05/20 16:00 01/05/20 16:00 Labs: Laboratory Results - last 24 hr 01/05/20 01/05/20 01/05/20 16:00 16:00 16:00 WBC 5.7 RBC 4.77 Hgb 15.7 Hct 47.5 MCV 99.6 MCH 33.0 MCHC 33.1 RDW 16.2 H Plt Count 127 L Neut % (Auto) 56.4 Lymph % (Auto) 29.3 Cameron % (Auto) 12.1 Eos % (Auto) 1.1 L Baso % (Auto) 1.1 Neut # (Auto) 3200 Lymph # (Auto) 1700 [place] # (Auto) 700 Eos # (Auto) 100 Baso # (Auto) 100 PT INR APTT Sodium 138 Potassium 4.5 Chloride 101 Carbon Dioxide 29 BUN 17 Creatinine 0.85 Estimated GFR > 60.0 BUN/Creatinine Ratio 20.0 Glucose 96 Calcium 9.4 Total Bilirubin 1.0 AST 48 ALT 27 Alkaline Phosphatase 221 H Total Creatine Kinase 135 CK-MB (CK-2) 2.22 CK-MB (CK-2) Rel Index 1.6 Troponin I 0.016 NT-Pro-B Natriuret Pep 1540 H Total Protein 7.8 Albumin 4.2 Globulin 3.6 Albumin/Globulin Ratio 1.2 Lipase 102 COVID-19 PCR 01/05/20 01/05/20 16:00 16:00 WBC RBC Hgb Hct MCV MCH MCHC RDW Plt Count Neut % (Auto) Lymph % (Auto) Cameron % (Auto) Eos % (Auto) Baso % (Auto) Neut # (Auto) Lymph # (Auto) Cameron # (Auto) Eos # (Auto) Baso # (Auto) PT 13.7 H INR 1.2 APTT 31 Sodium Potassium Chloride Carbon Dioxide BUN Creatinine Estimated GFR BUN/Creatinine Ratio Glucose Calcium Total Bilirubin AST ALT Alkaline Phosphatase Total Creatine Kinase CK-MB (CK-2) CK-MB (CK-2) Rel Index Troponin I NT-Pro-B Natriuret Pep Total Protein Albumin Globulin Albumin/Globulin Ratio Lipase COVID-19 PCR Negative Assessment & Plan Assessment & Plan narrative: Lee Gleason will be observed overnight for further workup of a suspected new onset heart failure exacerbation. Suspected congestive heart failure with a [id number] score of 4-5 -Complete echocardiogram on 01/05 -Diuresis with IV furosemide, will receive 40 mg tonight, then q 12 hours starting 01/04 -Strict I/Os -telemetry -trend troponin 2 more times starting at 2200. Essential hypertension, chronic -Continue home dose of losartan 100 mg po daily -He normally takes Diltiazem 180 mg daily, I have written him for Diltiazem 60 mg po bid starting 01/05 due to bradycardia Hyperlipidemia, chronic -On November 20, 2019, patient had a lipid panel done at his PCPs office in [place] with a total cholesterol of 108, triglycerides 108, HDL 43, and LDL 43 -Will repeat fasting -Continue home dose of atorvastatin 40 mg at bedtime Gout, chronic -Home dose of alllopurinol 300 is continued Bibasilar alveolar opacities and small right effusions seen on xray -Procal is negative, ruling out PNA VTE prophylaxis: Wells risk score: 0 Enoxaparin 40 mg subQ daily Consults: none Patient is observation status as his stay is not likely to exceed 2 midnights. FEN: IV saline lock, low sodium diet, BMP and magnesium in the am. Dispo: Probable discharge to home Code Status: Full Code as discussed with patient Scores CHADS-VASc Congestive heart failure: no Hypertension: yes Age 75 years or older: yes Diabetes mellitus: no Stroke, TIA, or TE: no Vascular disease: yes Age 65 to 74 years: no Sex category (female): Male CHADS-VASc Score: 4 Wells' Criteria for PE Clinical signs and symptoms of DVT: No PE is #1 Dx or equally likely: No Heart rate > 100: No Immobilization at least 3 days or surg in previous 4 weeks: No History of PE or DVT: No Hemoptysis: No Malignancy w/Treatment within 6 months or palliative: No Wells' PE Score total: 0 Quality VTE Deep Vein Thrombosis/Pulmonary Embolism Present on Admission: No
[2020-01-05 20:55] LABS: Procalcitonin < 0.05 ng/mL (<0.5)
[2020-01-05] MEDS: LOSARTAN 50 MG TABLET 100 MG PO (21:02)
[2020-01-05] MEDS: ATORVASTATIN 20 MG TABLET 40 MG PO (21:03)
[2020-01-06] VITALS (8 sets, daily range): BP systolic 108–127; BP diastolic 61–76; PULSE 43–70; RESP 16–20; TEMP 36.3–37.1; O2SAT 92–97
--- NOTE | 2020-01-06 00:54 | PC.NURSE ---
Addendum entered by Reanna Christian R.N. 01/06/20 06:37: Noted weight drop of 2.59kg from admission. Weight loss is expected due to receiving diuretic for new dx of heart failure. Original Note: Seen and assessed at 2354. Is alert and oriented. Breath sounds diminished right > left with occasional audible expiratory wheeze. Has orthopnea but denies SOB with exertion or at rest; RA sat 93%. HR irregular and bradycardic; telemetry reading at 0044 was afib SVR with rate of 44 but PEDIATRIC CLINICAL NURSE SPECIALIST reports intermittent readings as low as 38. Denies dizziness or lightheadedness due to bradycardia. Denies nausea. BT hypoactive but is passing flatus. Abdomen is firm with ascites but non tender. Voiding frequently related to having received diuretic on evening shift. Does have edema in bilateral LE right > left. Independent with mobility and is steady on feet. Fall risk score is moderate; bed alarm not warranted at this time. Denies pain.
[2020-01-06 03:47] LABS: Add Manual Diff / Slide Review NO; Basophils Absolute Auto 0 /uL (0-100); Basophils Percent Auto 0.9 % (0-2); Eosinophils Absolute Auto 100 /uL (0-450); Hematocrit 46.7 % (41-53); Hemoglobin 15.6 g/dL (13.5-17.5); Lymphocytes Absolute Auto 1500 /uL (1100-4500); Lymphocytes Percent Auto 26.1 % (25-40); Mean Corpuscular HGB Conc 33.4 % (30-36); Mean Corpuscular Volume 98.7 fL (80-100); Monocytes Absolute Auto 700 /uL (0-900); Monocytes Percent Auto 13.1 % (3-14); Neutrophils Absolute Auto 3300 /uL (1500-7000); Neutrophils Percent Auto 58.9 % (50-75); Platelet Count 116 X10^3/uL (150-400); Red Blood Cell Count 4.73 X10^6/uL (4.5-5.9); Red Cell Distribution Width 15.9 % (11.6-14.8); White Blood Cell Count 5.6 X10^3/uL (4.5-11.0)
[2020-01-06 03:59] LABS: Alanine Aminotransferase 28 IU/L (<50); Albumin 3.8 g/dL (3.5-5.0); Albumin Globulin Ratio 1.2 (1.0-2.8); Alkaline Phosphatase 211 U/L (38-126); Aspartate Aminotransferase 49 IU/L (17-59); BUN Creatinine Ratio 18.4 (6-22); Bilirubin Total 1.1 mg/dL (0.2-1.3); Blood Urea Nitrogen 19 mg/dL (9-20); Calcium 9.5 mg/dL (8.4-10.2); Carbon Dioxide 36 mmol/L (22-32); Chloride 98 mmol/L (98-107); Estimated Glomerular Filt Rate > 60.0 mL/min (>60); Globulin 3.2 g/dL (1.7-4.1); Glucose 100 mg/dL (80-110); HEMOLYSIS < 15 (0-50); Magnesium 1.9 mg/dL (1.6-2.3); Potassium 4.5 mmol/L (3.4-5.1); Sodium 137 mmol/L (137-145)
[2020-01-06 04:05] LABS: Cholesterol 95 mg/dL (140-199); HDL Cholesterol 53 mg/dL (40-60); LDL Cholesterol Calculated 26 mg/dL (<100); Triglycerides 79 mg/dL (35-150)
[2020-01-06 04:11] LABS: Troponin I 0.047 ng/mL (0.01-0.034)
[2020-01-06] MEDS: FUROSEMIDE 40 MG/4 ML VIAL IV ×2 (08:45→16:07)
[2020-01-06] MEDS: allopurinoL 300 MG TABLET PO (08:45)
[2020-01-06] MEDS: ASPIRIN EC 81 MG TABLET PO (08:45)
[2020-01-06] MEDS: ENOXAPARIN 40 MG/0.4 ML SYRINGE SUBCUT (08:45)
[2020-01-06] MEDS: SODIUM CHLORIDE 0.9% FLUSH 10 ML IV ×2 (08:46→20:47)
[2020-01-06 12:13] LABS: Troponin I 0.049 ng/mL (0.01-0.034)
--- NOTE | 2020-01-06 13:02 | CM.DANOTE ---
Patient is a 74 year old male who was admitted on 01/05/20 for SOB. Pt has MCR and BCBS OUT STATE REG for insurance and no established local PCP. EMR was reviewed. Per MD, with with possible new CHF and Echo scheduled for 1100 today and pending results could likely d/c home. 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 Pt confirms that he is not established with local PCP but open to getting list and talking to MD with plan of calling local clinics to get an appointment for establishing care after d/c. Pt is independent with ADL's at baseline and drives and denies any hx of HH or SNF and preference is to d/c home later today if stable via spouse POV. Plan: SW to follow for Echo results towards determining if pt stable for d/c home with spouse later today and outpt follow up. FAROOQ Resendiz Discharge Planning/Care Management CM Discharge Assessment Start: 01/06/20 12:51 Freq: Status: Active Protocol: Document 01/06/20 12:51 BF (Rec: 01/06/20 12:52 BF [id number]) Discharge Planning Assessment Assigned Aircraft Cabin Cleaner FAROOQ Godoy DPOA/Assigned Designee Name spouse Wily Contact Information [phone] Advance Directives? No Advance Directives on File No History Provided By Patient,Medical Record Has Patient been admitted in last 30 No days? Prior Living Arrangements House Household Members spouse Type of transporation used prior to Drives own vehicle admit Independent with ADL's Yes Is patient alert and oriented? Yes Caregiver for Another No DME Already Rented / Owned Cane Barriers to Discharge No Discharge Plan Home Transportation Arrangement Spouse can likely provide transport at d/c. Referrals Initiated None needed Whiteboard Updated in Patient Room with Yes name and ext. # of Aircraft Cabin Cleaner Review Status In Process Please Provide Date Initial DC 01/06/20 Assessment Was Performed Next Review Type Continued Stay Review
--- NOTE | 2020-01-06 14:52 | PM.DS.1 ---
History of Present Illness History of Present Illness Date Patient Seen: 01/06/20 Time Patient Seen: 14:52 Chief complaint: short of breath, anxiety Discharge Providers Provider Date of admission: 01/05/20 17:27 Discharge provider: Lyle Carlisle DO Summary Hospital Course Hospital Course: Left ventricular systolic function is moderate to severely reduced with an estimated ejection fraction of 25 to 30% with a moderate dyssynchronous contraction pattern, suggestive of a conduction abnormality, but no obvious focal wall motion abnormality. Left ventricular volumes are moderately increased with an estimated end-diastolic volume of 152 mL. Diastolic function is challenging to assess but there is probable elevated filling pressures. The right ventricle is moderately enlarged with moderate to severely reduced systolic function. Pulmonary artery systolic pressure is estimated around 45 mmHg with a CVP of around 8 mmHg. There is severe biatrial enlargement. There is moderate mitral and tricuspid regurgitation. 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 and a severity ratio of 0.22. There is mild aortic regurgitation present. The ascending aorta is mildly enlarged. Exam Vital Signs (past 8 hours): - 01/06/20 07:00 01/06/20 11:21 01/06/20 11:32 Temperature 97.8 F 98.3 F Pulse Rate 44 L 70 48 L Respiratory Rate 19 19 18 Blood Pressure 122/69 127/76 115/61 Pulse Oximetry 94 97 94 Oxygen Delivery Method Room Air Oxygen Flow Rate 0 Objective Labs Result Diagrams: 01/06/20 03:38 01/06/20 03:38 Labs: Laboratory Results - last 24 hr 01/05/20 01/05/20 01/05/20 16:00 16:00 16:00 WBC 5.7 RBC 4.77 Hgb 15.7 Hct 47.5 MCV 99.6 MCH 33.0 MCHC 33.1 RDW 16.2 H Plt Count 127 L Neut % (Auto) 56.4 Lymph % (Auto) 29.3 [place] % (Auto) 12.1 Eos % (Auto) 1.1 L Baso % (Auto) 1.1 Neut # (Auto) 3200 Lymph # (Auto) 1700 [place] # (Auto) 700 Eos # (Auto) 100 Baso # (Auto) 100 PT INR APTT Sodium 138 Potassium 4.5 Chloride 101 Carbon Dioxide 29 BUN 17 Creatinine 0.85 Estimated GFR > 60.0 BUN/Creatinine Ratio 20.0 Glucose 96 Calcium 9.4 Magnesium Total Bilirubin 1.0 AST 48 ALT 27 Alkaline Phosphatase 221 H Total Creatine Kinase 135 CK-MB (CK-2) 2.22 CK-MB (CK-2) Rel Index 1.6 Troponin I 0.016 NT-Pro-B Natriuret Pep 1540 H Total Protein 7.8 Albumin 4.2 Globulin 3.6 Albumin/Globulin Ratio 1.2 Triglycerides Cholesterol LDL Cholesterol, Calc HDL Cholesterol Lipase 102 Procalcitonin COVID-19 PCR 01/05/20 01/05/20 01/05/20 16:00 16:00 16:00 WBC RBC Hgb Hct MCV MCH MCHC RDW Plt Count Neut % (Auto) Lymph % (Auto) [place] % (Auto) Eos % (Auto) Baso % (Auto) Neut # (Auto) Lymph # (Auto) [place] # (Auto) Eos # (Auto) Baso # (Auto) PT 13.7 H INR 1.2 APTT 31 Sodium Potassium Chloride Carbon Dioxide BUN Creatinine Estimated GFR BUN/Creatinine Ratio Glucose Calcium Magnesium 2.0 Total Bilirubin AST ALT Alkaline Phosphatase Total Creatine Kinase CK-MB (CK-2) CK-MB (CK-2) Rel Index Troponin I NT-Pro-B Natriuret Pep Total Protein Albumin Globulin Albumin/Globulin Ratio Triglycerides Cholesterol LDL Cholesterol, Calc HDL Cholesterol Lipase Procalcitonin COVID-19 PCR Negative 01/05/20 01/05/20 01/06/20 16:00 21:56 03:38 WBC RBC Hgb Hct MCV MCH MCHC RDW Plt Count Neut % (Auto) Lymph % (Auto) [place] % (Auto) Eos % (Auto) Baso % (Auto) Neut # (Auto) Lymph # (Auto) [place] # (Auto) Eos # (Auto) Baso # (Auto) PT INR APTT Sodium Potassium Chloride Carbon Dioxide BUN Creatinine Estimated GFR BUN/Creatinine Ratio Glucose Calcium Magnesium Total Bilirubin AST ALT Alkaline Phosphatase Total Creatine Kinase CK-MB (CK-2) CK-MB (CK-2) Rel Index Troponin I 0.030 NT-Pro-B Natriuret Pep Total Protein Albumin Globulin Albumin/Globulin Ratio Triglycerides 79 Cholesterol 95 L LDL Cholesterol, Calc 26 HDL Cholesterol 53 Lipase Procalcitonin < 0.05 COVID-19 PCR 01/06/20 01/06/20 01/06/20 03:38 03:38 03:38 WBC 5.6 RBC 4.73 Hgb 15.6 Hct 46.7 MCV 98.7 MCH 33.0 MCHC 33.4 RDW 15.9 H Plt Count 116 L Neut % (Auto) 58.9 Lymph % (Auto) 26.1 [place] % (Auto) 13.1 Eos % (Auto) 1.0 L Baso % (Auto) 0.9 Neut # (Auto) 3300 Lymph # (Auto) 1500 [place] # (Auto) 700 Eos # (Auto) 100 Baso # (Auto) 0 PT INR APTT Sodium 137 Potassium 4.5 Chloride 98 Carbon Dioxide 36 H BUN 19 Creatinine 1.03 Estimated GFR > 60.0 BUN/Creatinine Ratio 18.4 Glucose 100 Calcium 9.5 Magnesium 1.9 Total Bilirubin 1.1 AST 49 ALT 28 Alkaline Phosphatase 211 H Total Creatine Kinase CK-MB (CK-2) CK-MB (CK-2) Rel Index Troponin I 0.047 H NT-Pro-B Natriuret Pep Total Protein 7.0 Albumin 3.8 Globulin 3.2 Albumin/Globulin Ratio 1.2 Triglycerides Cholesterol LDL Cholesterol, Calc HDL Cholesterol Lipase Procalcitonin COVID-19 PCR 01/06/20 11:38 WBC RBC Hgb Hct MCV MCH MCHC RDW Plt Count Neut % (Auto) Lymph % (Auto) [place] % (Auto) Eos % (Auto) Baso % (Auto) Neut # (Auto) Lymph # (Auto) [place] # (Auto) Eos # (Auto) Baso # (Auto) PT INR APTT Sodium Potassium Chloride Carbon Dioxide BUN Creatinine Estimated GFR BUN/Creatinine Ratio Glucose Calcium Magnesium Total Bilirubin AST ALT Alkaline Phosphatase Total Creatine Kinase CK-MB (CK-2) CK-MB (CK-2) Rel Index Troponin I 0.049 H NT-Pro-B Natriuret Pep Total Protein Albumin Globulin Albumin/Globulin Ratio Triglycerides Cholesterol LDL Cholesterol, Calc HDL Cholesterol Lipase Procalcitonin COVID-19 PCR Discharge Plan Discharge orders & Medications Prescriptions: No Action losartan [Cozaar] 50 MG tablet 100 mg PO BEDTIME Qty: 0 RF: 0 allopurinol 300 MG tablet 300 mg PO QDAY Qty: 0 RF: 0 OMEGA-3/DHA/EPA/FISH OIL ([place]-3 Fish Oil Softgel) 3,000 units PO DAILY Qty: 0 RF: 0 diltiazem HCl 180 mg Tablet Extended Release 24 Hr 180 mg PO DAILY RF: 0 atorvastatin 40 mg PO BEDTIME RF: 0 aspirin 325 mg PO DAILY RF: 0 cholecalciferol (vitamin D3) [Vitamin D3] 50 mcg (2,000 unit) Capsule 50 mcg PO DAILY RF: 0 cyanocobalamin (vitamin B-12) 5,000 mcg Capsule 5,000 mcg PO DAILY RF: 0 Discharge Data Attending Provider: Lyle Carlisle Admit Date/Time: 01/05/20 17:27 Quality VTE Deep Vein Thrombosis/Pulmonary Embolism Present on Admission: No
--- NOTE | 2020-01-06 15:13 | PM.PN.1 ---
Subjective Subjective Date Patient Seen: 01/06/20 Time Patient Seen: 15:19 Interval history: Lee Gleason is a pleasant 74 y.o. 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 He states that his shortness of breath has been progressive for the the past few months, and he is not felt his usual energy over this time frame as well. His echocardiogram today revealed an EF of approximately 25% with severe aortic stenosis. Discussed with Cardiology in [place] who recommended continued diuresis and urgent outpatient follow-up. The patient reports improved shortness of breath today, and was able to walk a couple of laps around the nursing station. His troponin is still rising slightly. He was finally able to lie flat this morning for the 1st time in months. Exam Vital Signs (past 8 hours): - 01/06/20 11:21 01/06/20 11:32 Temperature 98.3 F Pulse Rate 70 48 L Respiratory Rate 19 18 Blood Pressure 127/76 115/61 Pulse Oximetry 97 94 Oxygen Delivery Method Room Air Oxygen Flow Rate 0 Narrative Exam Narrative: GENERAL APPEARANCE: Well developed, well nourished, in no acute distress. SKIN: Inspection of the skin reveals no rashes, ulcerations or petechiae. HEENT: Normocephalic atraumatic, extraocular muscles are intact, oropharynx is clear and mucous membranes are moist, neck is supple without adenopathy NECK: Supple and symmetric. There was no thyroid enlargement, and no tenderness, or masses were felt. CHEST: Normal AP diameter and normal contour without any kyphoscoliosis. LUNGS: Auscultation of the lungs revealed no wheezes, rhonchi, or rales. CARDIOVASCULAR: Bradycardic and irregularly irregular. 3/6 crescendo - decrescendo systolic murmur. Peripheral pulses were 2+ and symmetric. ABDOMEN: Soft and nontender with normal bowel sounds. No ascites was noted. MUSCULOSKELETAL: There was no tenderness or effusions noted. Muscle strength and tone were normal. EXTREMITIES: No cyanosis, clubbing. trace pedal edema bilaterally NEUROLOGIC: Alert and oriented x 3. Normal affect. Gait was normal. Strength is +5/5 in the Upper Extremities and Lower Extremities Bilaterally. Sensation to touch was normal. Objective Imaging Echo: Radiologist's impression: Left ventricular systolic function is moderate to severely reduced with an estimated ejection fraction of 25 to 30% with a moderate dyssynchronous contraction pattern, suggestive of a conduction abnormality, but no obvious focal wall motion abnormality. Left ventricular volumes are moderately increased with an estimated end-diastolic volume of 152 mL. Diastolic function is challenging to assess but there is probable elevated filling pressures. The right ventricle is moderately enlarged with moderate to severely reduced systolic function. Pulmonary artery systolic pressure is estimated around 45 mmHg with a CVP of around 8 mmHg. There is severe biatrial enlargement. There is moderate mitral and tricuspid regurgitation. 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 and a severity ratio of 0.22. There is mild aortic regurgitation present. The ascending aorta is mildly enlarged. Labs Result Diagrams: 01/06/20 03:38 01/06/20 03:38 Labs: Laboratory Results - last 24 hr 01/05/20 01/05/20 01/05/20 16:00 16:00 16:00 WBC 5.7 RBC 4.77 Hgb 15.7 Hct 47.5 MCV 99.6 MCH 33.0 MCHC 33.1 RDW 16.2 H Plt Count 127 L Neut % (Auto) 56.4 Lymph % (Auto) 29.3 Guadalupe % (Auto) 12.1 Eos % (Auto) 1.1 L Baso % (Auto) 1.1 Neut # (Auto) 3200 Lymph # (Auto) 1700 Gu[place]upe # (Auto) 700 Eos # (Auto) 100 Baso # (Auto) 100 PT INR APTT Sodium 138 Potassium 4.5 Chloride 101 Carbon Dioxide 29 BUN 17 Creatinine 0.85 Estimated GFR > 60.0 BUN/Creatinine Ratio 20.0 Glucose 96 Calcium 9.4 Magnesium Total Bilirubin 1.0 AST 48 ALT 27 Alkaline Phosphatase 221 H Total Creatine Kinase 135 CK-MB (CK-2) 2.22 CK-MB (CK-2) Rel Index 1.6 Troponin I 0.016 NT-Pro-B Natriuret Pep 1540 H Total Protein 7.8 Albumin 4.2 Globulin 3.6 Albumin/Globulin Ratio 1.2 Triglycerides Cholesterol LDL Cholesterol, Calc HDL Cholesterol Lipase 102 Procalcitonin COVID-19 PCR 01/05/20 01/05/20 01/05/20 16:00 16:00 16:00 WBC RBC Hgb Hct MCV MCH MCHC RDW Plt Count Neut % (Auto) Lymph % (Auto) Guadalupe % (Auto) Eos % (Auto) Baso % (Auto) Neut # (Auto) Lymph # (Auto) [place]upe # (Auto) Eos # (Auto) Baso # (Auto) PT 13.7 H INR 1.2 APTT 31 Sodium Potassium Chloride Carbon Dioxide BUN Creatinine Estimated GFR BUN/Creatinine Ratio Glucose Calcium Magnesium 2.0 Total Bilirubin AST ALT Alkaline Phosphatase Total Creatine Kinase CK-MB (CK-2) CK-MB (CK-2) Rel Index Troponin I NT-Pro-B Natriuret Pep Total Protein Albumin Globulin Albumin/Globulin Ratio Triglycerides Cholesterol LDL Cholesterol, Calc HDL Cholesterol Lipase Procalcitonin COVID-19 PCR Negative 01/05/20 01/05/20 01/06/20 16:00 21:56 03:38 WBC RBC Hgb Hct MCV MCH MCHC RDW Plt Count Neut % (Auto) Lymph % (Auto) Guadalupe % (Auto) Eos % (Auto) Baso % (Auto) Neut # (Auto) Lymph # (Auto) [place]upe # (Auto) Eos # (Auto) Baso # (Auto) PT INR APTT Sodium Potassium Chloride Carbon Dioxide BUN Creatinine Estimated GFR BUN/Creatinine Ratio Glucose Calcium Magnesium Total Bilirubin AST ALT Alkaline Phosphatase Total Creatine Kinase CK-MB (CK-2) CK-MB (CK-2) Rel Index Troponin I 0.030 NT-Pro-B Natriuret Pep Total Protein Albumin Globulin Albumin/Globulin Ratio Triglycerides 79 Cholesterol 95 L LDL Cholesterol, Calc 26 HDL Cholesterol 53 Lipase Procalcitonin < 0.05 COVID-19 PCR 01/06/20 01/06/20 01/06/20 03:38 03:38 03:38 WBC 5.6 RBC 4.73 Hgb 15.6 Hct 46.7 MCV 98.7 MCH 33.0 MCHC 33.4 RDW 15.9 H Plt Count 116 L Neut % (Auto) 58.9 Lymph % (Auto) 26.1 Gu[place]upe % (Auto) 13.1 Eos % (Auto) 1.0 L Baso % (Auto) 0.9 Neut # (Auto) 3300 Lymph # (Auto) 1500 [place]upe # (Auto) 700 Eos # (Auto) 100 Baso # (Auto) 0 PT INR APTT Sodium 137 Potassium 4.5 Chloride 98 Carbon Dioxide 36 H BUN 19 Creatinine 1.03 Estimated GFR > 60.0 BUN/Creatinine Ratio 18.4 Glucose 100 Calcium 9.5 Magnesium 1.9 Total Bilirubin 1.1 AST 49 ALT 28 Alkaline Phosphatase 211 H Total Creatine Kinase CK-MB (CK-2) CK-MB (CK-2) Rel Index Troponin I 0.047 H NT-Pro-B Natriuret Pep Total Protein 7.0 Albumin 3.8 Globulin 3.2 Albumin/Globulin Ratio 1.2 Triglycerides Cholesterol LDL Cholesterol, Calc HDL Cholesterol Lipase Procalcitonin COVID-19 PCR 01/06/20 11:38 WBC RBC Hgb Hct MCV MCH MCHC RDW Plt Count Neut % (Auto) Lymph % (Auto) Guadalupe % (Auto) Eos % (Auto) Baso % (Auto) Neut # (Auto) Lymph # (Auto) [place]upe # (Auto) Eos # (Auto) Baso # (Auto) PT INR APTT Sodium Potassium Chloride Carbon Dioxide BUN Creatinine Estimated GFR BUN/Creatinine Ratio Glucose Calcium Magnesium Total Bilirubin AST ALT Alkaline Phosphatase Total Creatine Kinase CK-MB (CK-2) CK-MB (CK-2) Rel Index Troponin I 0.049 H NT-Pro-B Natriuret Pep Total Protein Albumin Globulin Albumin/Globulin Ratio Triglycerides Cholesterol LDL Cholesterol, Calc HDL Cholesterol Lipase Procalcitonin COVID-19 PCR Assessment & Plan Assessment & Plan narrative: Lee Gleason is a 74 year old male with PMH of gout, hypertension, and hyperlipidemia who presented with worsening dyspnea on exertion. He was admiited over concern for new heart failure. He was found to have an EF of 25% on echocardiogram today with severe aortic stenosis. Consultation with cardiology in [place] recommended further diuresis, medical optimization, and urgent outpatient follow up. 1. Systolic heart failure, unknown chronicity but likely acute on chronic, present on admission -Echocardiogram today revealed an EF of 25-30% with moderate dyssynchronous pattern but no focal wall motion abnormalities. There is also severe aortic stenosis with a valve area of 0.86. -cardiology in [place] was consulted and recommended further diuresis, medical optimization with beta-tracey if able, OLAF-inhibitor, and diuretic therapy. They recommended urgent follow-up as an outpatient for valve replacement and will likely need ischemic evaluation as well. -Diuresis with IV furosemide 40 mg b.i.d.. -Strict I/Os and daily weights. He is net -4 L at this time, will continue to be aggressive with diuresis given no significant bump in his creatinine. -telemetry has been unrevealing -troponin has continued to trend up slightly, most recently at 0.049. Will continue to trend until values start going down. 2. Essential hypertension, chronic -Continue home dose of losartan 100 mg po daily -He normally takes Diltiazem 180 mg daily, which is currently held given his bradycardia. 3. Hyperlipidemia, chronic -On November 20, 2019, patient had a lipid panel done at his PCPs office in [place] with a total cholesterol of 108, triglycerides 108, HDL 43, and LDL 43 -repeat lipid panel showed a triglyceride 79, total cholesterol 95, LDL of 26, HDL of 53. -Continue home dose of atorvastatin 40 mg at bedtime 4. Gout, chronic -Home dose of alllopurinol 300 is continued\ 5. Severe aortic stenosis, present on admission -management as noted above Bibasilar alveolar opacities and small right effusions seen on xray -Procal is negative, ruling out PNA VTE prophylaxis: Wells risk score: 0 Enoxaparin 40 mg subQ daily Dispo: Anticipate discharge home, given improvement in symptoms this could be as soon as tomorrow. Patient changed to inpatient status today given new diagnosis of heart failure and severe aortic stenosis. Code Status: Full Code as discussed with patient Quality VTE Deep Vein Thrombosis/Pulmonary Embolism Present on Admission: No
[2020-01-06 17:53] LABS: Troponin I 0.063 ng/mL (0.01-0.034)
[2020-01-06] MEDS: LOSARTAN 50 MG TABLET 100 MG PO (20:47)
[2020-01-06] MEDS: ATORVASTATIN 20 MG TABLET 40 MG PO (20:48)
[2020-01-07 00:08] LABS: Procalcitonin < 0.05 ng/mL (<0.5)
[2020-01-07 05:00] VITALS: BP 120/68; PULSE 49; RESP 16; TEMP 36.6; O2SAT 93
[2020-01-07 06:14] LABS: BUN Creatinine Ratio 16.4 (6-22); Blood Urea Nitrogen 19 mg/dL (9-20); Calcium 9.4 mg/dL (8.4-10.2); Carbon Dioxide 39 mmol/L (22-32); Chloride 98 mmol/L (98-107); Estimated Glomerular Filt Rate > 60.0 mL/min (>60); Glucose 95 mg/dL (80-110); HEMOLYSIS < 15 (0-50); Magnesium 1.9 mg/dL (1.6-2.3); Potassium 4.4 mmol/L (3.4-5.1); Sodium 139 mmol/L (137-145)
[2020-01-07 06:46] LABS: TSH w/ Reflex to FT4 3.51 uIU/mL (0.47-4.68)
[2020-01-07 09:00] VITALS: BP 109/71; PULSE 62; RESP 18; TEMP 36.6; O2SAT 92
--- NOTE | 2020-01-07 09:25 | CM.DPC ---
Addendum entered by Deirdre Aden LPN 01/07/20 13:45: Pt will transfer to [facility] to hospitalist service and cardiology consulting. Original Note: DCP: continued: case received, EMR reviewed. Dr. Victor is seeing pt today and reports now that she is working on a transfer for higher level of specialty care. Dr Victor is working with RN coordinator on this hospital to hospital transfer. Payer: Medicare and [facility].
[2020-01-07] MEDS: ASPIRIN EC 81 MG TABLET PO (09:33)
[2020-01-07] MEDS: SODIUM CHLORIDE 0.9% FLUSH 10 ML IV (09:33)
[2020-01-07] MEDS: allopurinoL 300 MG TABLET PO (09:33)
[2020-01-07] MEDS: ENOXAPARIN 40 MG/0.4 ML SYRINGE SUBCUT (09:33)
[2020-01-07 11:27] VITALS: BP 122/66; PULSE 78; RESP 19; TEMP 36.7; O2SAT 91
--- NOTE | 2020-01-07 13:22 | P.DS_ITS ---
History of Present Illness History of Present Illness Date Patient Seen: 01/05/20 Chief complaint: short of breath, anxiety Narrative: Written by Sun MORROW: Lee Gleason is a pleasant 74 y.o. 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 A few months ago, he noted he was 220 lbs and went on a diet eliminating alcohol, carbs and sweets. He dropped approximately 10 lbs then noticed he was gaining weight, particularly in his stomach and lower extremities. States that he feels pressure in his lower gut. He denies fever, diaphoresis, chills, vision changes or headaches, chest pain, nausea or vomiting , diarrhea or constipation. He is currently experiencing frequent urination with weak volume and stream, was recently referred to Dr. Timbo Groves, Urologist of the [facility] for further workup of an elevated PSA. Chest x-ray report indicated Bibasilar alveolar opacities and small right effusions. Findings may indicate pneumonia or mild edema. Patient is afebrile, blood pressure 131/73, heart rate 45, respiratory rate 27, oxygen saturation 94% on room air, he weighs 99.7 kg with a BMI of 30.7. CBC is largely within normal limits except for a mildly decreased platelet count of 127, coags were normal, BMP largely within normal limits, does have an elevated alk-phos at 221, magnesium normal at 2.0, troponin was 0.016, proBNP 15 40, his COVID-19 negative, procalcitonin is pending. Discharge Providers Provider Date of admission: 01/06/20 16:10 Discharge Date: 01/07/20 Discharge provider: Judith Victor DO Summary Hospital Course Discharge Diagnosis: 1. Newly diagnosed systolic congestive heart failure with exacerbation, present on admission. Acute exacerbation resolved. 2. Severe aortic stenosis, chronic, present on admission. Active. 3. Chronic atrial fibrillation with slow ventricular rate, present on admission. Active. 4. Hypertension, chronic, present on admission. Stable. 5. Hyperlipidemia, chronic, present on admission. Stable. 6. Gout, chronic, present on admission. Stable. 7. Ruled out pneumonia. Hospital Course: Lee Gleason is a 74-year-old male with a past medical history significant for hypertension, hyperlipidemia, chronic atrial fibrillation not on anticoagulation, and gout who recently established residency in [facility] and presented to the ED with dyspnea on exertion, orthopnea, and peripheral edema. 1. Newly diagnosed systolic congestive heart failure with exacerbation, present on admission. Acute exacerbation resolved. -Patient presented with 6 months of dyspnea on exertion that acutely worsened over last 3-4 days prior to admission with accompanied orthopnea and peripheral edema. -Received 40 mg IV x1 Lasix in ED. Continued diuresis with furosemide 40 mg IV twice daily and received total of 160 mg IV Lasix. -Continued to monitor strict I&O and daily weights. Net -6 L. -Continued to monitor electrolytes and replete as necessary with diuresis as above. Goal K > 4.0 and Mg > 2.0. -Echocardiogram demonstrated EF of 25-30% with moderate dyssynchronous pattern but no focal wall motion abnormalities as below. -Continued medical optimization with diuresis and losartan 100 mg daily bedtime. Due to severe bradycardia did not initiate beta-tracey. 2. Severe aortic stenosis, chronic, present on admission. Active. -Echocardiogram demonstrated left ventricular systolic function is moderate to severely reduced with an estimated ejection fraction of 25 to 30% with a moderate dyssynchronous contraction pattern, suggestive of a conduction abnormality, but no obvious focal wall motion abnormality. Left ventricular volumes are moderately increased with an estimated end-diastolic volume of 152 mL. Diastolic function is challenging to assess but there is probable elevated filling pressures. The right ventricle is moderately enlarged with moderate to severely reduced systolic function. Pulmonary artery systolic pressure is estimated around 45 mmHg with a CVP of around 8 mmHg. There is severe biatrial enlargement. There is moderate mitral and tricuspid regurgitation. 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 and a severity ratio of 0.22. There is mild aortic regurgitation present. The ascending aorta is mildly enlarged. The patient appears to be in atrial fibrillation at 42 to 58 bpm throughout the study but clinical correlation is recommended. -Troponin trended up likely due to severe aortic stenosis with current to troponin 0.070. -Discussed case with Cardiology, Dr. Dickey, who recommends transfer for evaluation for TAVR as an inpatient due to risk of decompensation and sudden cardiac . Discussed case with [facility], Dr. Fleming who accepted patient for evaluation of TAVR. Discussed case with hospitalist Dr. Bañuelos who accepted patient for medical management and plan to transfer for higher level of care and evaluation for TAVR. 3. Chronic atrial fibrillation with slow ventricular rate, present on admission. Active. -Continued to monitor closely on telemetry. Patient remained in atrial fibrillation with slow ventricular rate average heart rate mid 40s (heart rate up to 50 to 60s with activity). -Discontinued diltiazem 180 mg daily. Patient is high risk of VTE with CHADS2 Vasc score 4.0. But is not on anticoagulation as he has declined this therapy in the past. -Continued to monitor electrolytes and replete as necessary with diuresis as above. Goal K > 4.0 and Mg > 2.0. 4. Hypertension, chronic, present on admission. Stable. -Continued home losartan 100 mg daily at bedtime. Discontinue diltiazem 180 mg daily due to severity of bradycardia. 5. Hyperlipidemia, chronic, present on admission. Stable. -Fasting lipid panel demonstrated excellent lipid control with: Total cholesterol 95, triglyceride 79, LDL of 26 (goal < 100), HDL of 53. -Continued home atorvastatin 40 mg at bedtime. 6. Gout, chronic, present on admission. Stable. -Does not represent acute gout flare. -Continued home allopurinol 300 mg daily. 7. Ruled out pneumonia. Exam Vital Signs (past 8 hours): - 01/07/20 09:00 01/07/20 11:27 Temperature 97.8 F 98.0 F Pulse Rate 62 78 Respiratory Rate 18 19 Blood Pressure 109/71 122/66 Pulse Oximetry 92 91 Oxygen Delivery Method Room Air Oxygen Flow Rate 0 Narrative Exam Narrative: General: Older gentleman sitting in bed and in no acute distress, well- developed, well-nourished, slightly anxious but appropriately interactive. HEENT: Normocephalic, atraumatic. External ears without defect. Pupils equal, round, and reactive to light. Anicteric sclerae, moist conjunctivae, and no lid lag. Oropharynx free of erythema and cobble stoning with moist mucosa. Neck: Supple with full range of motion. No jugular venous distension. No lymphadenopathy or thyromegaly. Cardiovascular: Irregularly irregular with holosystolic murmur at left sternal border. No rubs or gallops appreciated. Pulmonary: Clear to auscultation bilaterally without crackles, wheezes, or rhonchi. Normal respiratory effort with no use of accessory muscles. Abdomen: Soft, bowel sounds present, nontender, nondistended. No hepatosplenomegaly or masses appreciated. Extremities: No clubbing, cyanosis or edema. Skin: Normal temperature, turgor, and texture; no rash, ulcers, or subcutaneous nodules appreciated. Neurological: Cranial nerves grossly intact. Psychiatric: Slightly anxious otherwise normal mood and affect. Alert and oriented to person, place, and time. Objective Labs Result Diagrams: 01/06/20 03:38 01/07/20 05:30 Labs: Laboratory Results - last 24 hr 01/06/20 01/06/20 01/07/20 03:38 17:00 05:30 Sodium Potassium Chloride Carbon Dioxide BUN Creatinine Estimated GFR BUN/Creatinine Ratio Glucose Calcium Magnesium Troponin I 0.063 H 0.070 H Procalcitonin < 0.05 TSH 01/07/20 01/07/20 05:30 05:30 Sodium 139 Potassium 4.4 Chloride 98 Carbon Dioxide 39 H BUN 19 Creatinine 1.16 Estimated GFR > 60.0 BUN/Creatinine Ratio 16.4 Glucose 95 Calcium 9.4 Magnesium 1.9 Troponin I Procalcitonin TSH 3.51 Discharge Plan Discharge Plan Disposition: [facility] VTE Deep Vein Thrombosis/Pulmonary Embolism Present on Admission: No
--- NOTE | 2020-01-07 14:34 | PC.NURSE ---
Pt sitting up in chair and has spoken with Dr. Victor about transfer to [facility] PCU. Called report to [facility] who will be receiving Pt. Answered all questions and Pt will be ready to leave when they arrive. Pt has spoken with his spouse Wily who will meet him at [facility].
--- NOTE | 2020-01-07 15:39 | PC.NURSE ---
Pt ready for discharge - report given to ambulance personnel. Pt out via gurney by ambulance to [facility] with all belongings.
== END 2020-01-07 15:41 | disposition short-term general hospital (02) | DRG 292 ==
LOC: ED 17:26 → AC 17:28
PROVIDERS: Emergency Medicine; Internal Medicine; Nurse Practitioner Family; Admitting Provider Internal Medicine; Emergency Provider Nurse Practitioner Family; Referring Provider Nurse Practitioner Family; Visit Provider Internal Medicine
DX: I11.0 Hypertensive heart disease with heart failure (principal); I48.20 Chronic atrial fibrillation, unspecified; I50.23 Acute on chronic systolic (congestive) heart failure; I35.0 Nonrheumatic aortic (valve) stenosis; E78.5 Hyperlipidemia, unspecified; M10.9 Gout, unspecified; Z11.59 Encounter for screening for other viral diseases
CPT/HCPCS: 36415; 36592; 71046; 80048; 80053; 80061; 82550; 82553; 83690; 83735; 83880; 84145; 84443; 84484; 85025; 85610; 85730; 87635; 93005; 93010; 93306; 96374; 99284; G0378; J1650; J1940

== ENCOUNTER → 2020-02-06 14:23 | Outpatient (CLI) | payer MEDICARE, BC, SELFPAY ==
[2020-01-05 17:46] VITALS: BMI 30.7
[2020-02-08 02:09] LABS: COVID19 Sendout Not Detected (Not Detect)
== END ==
PROVIDERS: Visit Provider Student in an Organized Health Care Education/Training Program
DX: Z11.59 Encounter for screening for other viral diseases (principal)
CPT/HCPCS: 87635

== ENCOUNTER → 2020-03-14 09:03 | Outpatient (CLI) | payer MEDICARE, BC, SELFPAY ==
[2020-01-05 17:46] VITALS: BMI 30.7
[2020-03-14 11:48] LABS: COVID19 -Nasal RAPID Negative (Negative)
== END ==
PROVIDERS: Visit Provider Physician Assistant
DX: Z11.59 Encounter for screening for other viral diseases (principal)
CPT/HCPCS: 87635

== ENCOUNTER 2020-06-19 07:09 | Emergency (ER) | payer MEDICARE, OTHER, SELFPAY ==
[2020-01-05 17:46] VITALS: BMI 30.7
[2020-06-19 07:16] VITALS: BP 173/84; PULSE 49; RESP 18; TEMP 36.4; O2SAT 95; BMI 28.5
--- NOTE | 2020-06-19 07:21 | PC.NURSE ---
Pt has a small lac to the medial part of his tongue. Is on blood thinners and the bite continues to bleed. Pt given gauze and told to apply pressure to the lac.
--- NOTE | 2020-06-19 07:49 | ED_ITS ---
HPI - Dental/Oral General Chief complaint: Dental/Oral Stated complaint: bit tongue, on blood thinners, bleeding 9 hrs Time Seen by Provider: 06/19/20 07:15 Source: patient Mode of arrival: Ambulatory Limitations: no limitations History of Present Illness HPI Narrative: Patient is a 75-year-old male on warfarin for an aortic valve replacement is a presenting today with tongue bite and bleeding. He says last night he some help it is tongue he is not sure how it started bleeding. It has been bleeding for the last 8 or 9 hours. He says he has put a Kleenex in his mouth he did not apply pressure he was able to fall asleep with it however it has continued to bleed. Now while in the emergency department the nurse has given him gauze and instructed him to apply pressure after holding pressure for at least 30 minutes the bleeding has now stopped. He denies any dizziness or lightheadedness. They brought and blood soaked tissue paper for me to see. Related Data Home Medications Medication Instructions Recorded Confirmed OMEGA-3/DHA/EPA/FISH OIL ([place]-3 3,000 units PO DAILY #0 12/05/10 01/05/20 Fish Oil Softgel) allopurinol 300 mg PO QDAY #0 12/05/10 01/05/20 losartan [Cozaar] 100 mg PO BEDTIME #0 12/05/10 01/05/20 aspirin 325 mg PO DAILY 01/05/20 01/05/20 atorvastatin 40 mg PO BEDTIME 01/05/20 01/05/20 cholecalciferol (vitamin D3) 50 mcg PO DAILY 01/05/20 01/05/20 [Vitamin D3] cyanocobalamin (vitamin B-12) 5,000 mcg PO DAILY 01/05/20 01/05/20 diltiazem HCl 180 mg PO DAILY 01/05/20 01/05/20 Allergies Allergy/AdvReac Type Severity Reaction Status Date / Time No Known Drug Allergies Allergy Verified 06/19/20 07:16 Review of Systems Review of Systems Narrative: GENERAL: Denies chills,fever HEENT: See HPI Denies throat pain RESPIRATORY: Denies dyspnea, cough, wheezing CARDIOVASCULAR: Denies chest pain, palpitations GASTROINTESTINAL: Denies nausea, vomiting MUSCULOSKELETAL: Denies extremity pain, injury SKIN: No rash, no laceration, no pruritus NEUROLOGIC: Denies weakness, dizziness, headache, numbness 8 point review of systems is negative except for those stated above and HPI Patient History Medical History Elevated PSA Gout Hyperlipidemia Hypertension Surgical History Aortic valve replaced History of left hip replacement Family History Father Lung cancer Tobacco use disorder, severe, in controlled environment, dependence Mother Dementia Social History household members: spouse Smoking Status: Never smoker alcohol intake: current substance use type: does not use Smoking Status: Never smoker alcohol intake frequency: 0-2 drinks per day Substance Use Type: does not use Exam Initial Vital Signs Initial Vital Signs: Vital Signs Temperature 97.5 F L 06/19/20 07:16 Pulse Rate 49 L 06/19/20 07:16 Respiratory Rate 18 06/19/20 07:16 Blood Pressure 173/84 H 06/19/20 07:16 Pulse Oximetry 95 06/19/20 07:16 GENERAL: Alert pleasant 75-year-old male MOUTH: There is a scabbed over a blood clot lesion noted in the center of the tongue. There is no gaping or active bleeding at this time CARDIOVASCULAR: peripheral pulses in tact, cap refill <2 sec RESPIRATORY: No respiratory distress, speaks in full sentences without difficulty ABDOMEN: Soft, nontender, no guarding or rebound EXTREMITIES: Normal range of motion, no clubbing or edema. Neurovascularly intact NEUROLOGICAL: Cranial nerves II through XII grossly intact. Normal gait and speech. SKIN: Warm, dry, no petechiae, no rashes or lesions. Course Vital Signs Vital signs: Vital Signs - 8 hr 06/19/20 07:16 Temperature 97.5 F L Pulse Rate 49 L Respiratory Rate 18 Blood Pressure 173/84 H Pulse Oximetry 95 Discharge Plan Departure Patient Disposition: Home Clinical Impression: Simple laceration of tongue Instructions: DI for Minor Laceration Activity Restrictions/Additional Instructions: *You have been diagnosed with tongue laceration *What to do: You are on warfarin which will cause you to bleed more than normal. For any cut or bleeding please apply pressure for 30-60 minute. Recommend soft foods for the next couple of days. Even rinse her mouth out with water after eating to avoid food getting stuck in crevices. *Continue to take medications as directed Continue Coumadin as prescribed *Follow up with your primary care provider in 2-3 days *Return to ER if you should have persistent bleeding despite pressure, dizziness lightheadedness or passing out or any new, worsening or concerning symptoms Prescriptions: No Action losartan [Cozaar] 50 MG tablet 100 mg PO BEDTIME Qty: 0 RF: 0 allopurinol 300 MG tablet 300 mg PO QDAY Qty: 0 RF: 0 OMEGA-3/DHA/EPA/FISH OIL ([place]-3 Fish Oil Softgel) 3,000 units PO DAILY Qty: 0 RF: 0 diltiazem HCl 180 mg Tablet Extended Release 24 Hr 180 mg PO DAILY RF: 0 atorvastatin 40 mg PO BEDTIME RF: 0 aspirin 325 mg PO DAILY RF: 0 cholecalciferol (vitamin D3) [Vitamin D3] 50 mcg (2,000 unit) Capsule 50 mcg PO DAILY RF: 0 cyanocobalamin (vitamin B-12) 5,000 mcg Capsule 5,000 mcg PO DAILY RF: 0 Referrals: Miscellaneous,Doctor, MD [Primary Care Provider] -
[2020-06-19 08:15] VITALS: BP 141/67; PULSE 48; RESP 16; O2SAT 96
== END 2020-06-19 08:24 | disposition home or self-care (01) ==
PROVIDERS: Emergency Provider Emergency Medicine
DX: S01.512A Laceration without foreign body of oral cavity, initial encounter (principal); Z79.01 Long term (current) use of anticoagulants
CPT/HCPCS: 99281

== ENCOUNTER → 2020-06-23 15:23 | Outpatient (CLI) | payer MEDICARE, OTHER, SELFPAY ==
[2020-01-05 17:46] VITALS: BMI 30.7
[2020-06-23] MEDS: COVID-19 VACC, Ad26(JANSSEN)/PF 0.5 ML IM (15:39)
== END ==
PROVIDERS: Visit Provider Internal Medicine
DX: Z23 Encounter for immunization (principal)
CPT/HCPCS: 0031A; 91303

== ENCOUNTER 2020-07-21 14:00 | Outpatient (RCR) | payer MEDICARE, OTHER, BC, SELFPAY ==
[2020-01-05 17:46] VITALS: BMI 30.7
== END 2020-07-21 15:00 ==
LOC: CAR 14:00
PROVIDERS: Referring Provider Internal Medicine Interventional Cardiology; Visit Provider Internal Medicine Interventional Cardiology
DX: Z95.2 Presence of prosthetic heart valve (principal)
CPT/HCPCS: 93798

== ENCOUNTER → 2021-04-05 14:57 | Outpatient (CLI) | payer MEDICARE, OTHER, SELFPAY ==
[2020-01-05 17:46] VITALS: BMI 30.7
[2021-04-05 16:05] LABS: INR 2.3 (0.9-1.3); Prothrombin Time 26.1 SECONDS (10.1-12.7)
== END ==
PROVIDERS: Referring Provider Internal Medicine Interventional Cardiology; Visit Provider Internal Medicine Interventional Cardiology
DX: I48.19 Other persistent atrial fibrillation (principal)
CPT/HCPCS: 36415; 85610

== ENCOUNTER 2023-09-23 12:10 | Emergency (ER) | payer MEDICARE, OTHER, SELFPAY ==
[2020-01-05 17:46] VITALS: BMI 30.7
[2023-09-23 12:20] VITALS: BP 100/58; PULSE 71; RESP 16; TEMP 36.4; O2SAT 96; BMI 31.4
--- NOTE | 2023-09-23 12:39 | DI.CT.S_ITS ---
PROCEDURE: CT CERVICAL SPINE WO CON INDICATIONS: patient had humeral fx W presents with swelling/pain TECHNIQUE: Noncontrast 3 mm thick sections acquired from the skull base to the T4 level. Sagittal and coronal reformats were then constructed. For radiation dose reduction, the following was used: automated exposure control, adjustment of mA and/or kV according to patient size. COMPARISON: None. FINDINGS: Image quality: Excellent. Bones: No fractures or dislocations. Visualized superior ribs are intact. Severe cervical spondylitic change. Multilevel severe disc height loss and uncovertebral joint osteophytes and facet arthropathy. Multilevel bony foraminal narrowing. Soft tissues: Prevertebral soft tissues are normal in thickness. No paravertebral hematomas. No apical pneumothoraces. IMPRESSION: 1. No acute cervical fracture or dislocation. 2. Severe cervical spondylitic change. Dictated by: Marino Giordano M.D. on 09/23/2023 at 15:52 Approved by: Marino Giordano M.D. on 09/23/2023 at 16:00
--- NOTE | 2023-09-23 12:39 | DI.CT.S_ITS ---
PROCEDURE: CT HEAD/BRAIN WO CON INDICATIONS: patient had humeral fx W presents with swelling/pain on Eliq TECHNIQUE: Noncontrast 4.5 mm thick angled axial sections acquired from the foramen magnum to the vertex, with coronal and sagittal reformats. For radiation dose reduction, the following was used: automated exposure control, adjustment of mA and/or kV according to patient size. COMPARISON: None. FINDINGS: Image quality: Diagnostic. CSF spaces: Basal cisterns are patent. No extra-axial fluid collections. The ventricles are symmetric in size and shape. Brain: No intracranial bleeds or masses. There is cerebral volume loss for age, with resultant ventricular and sulcal prominence. There are moderate periventricular and deep white matter chronic small vessel ischemic changes. There is intracranial internal carotid artery atherosclerosis. Skull and face: Calvarium and visualized facial bones appear intact, without suspicious lesions. Sinuses: Visualized sinuses and mastoids are clear. IMPRESSION: No acute intracranial process. Age-related volume loss and moderate small vessel ischemic change. Dictated by: Marino Giordano M.D. on 09/23/2023 at 16:01 Approved by: Marino Giordano M.D. on 09/23/2023 at 16:02
--- NOTE | 2023-09-23 12:46 | ED_ITS ---
HPI - Fall General Chief Complaint: Fall Stated Complaint: R Arm Swelling, Fall t-7 Time Seen by Provider: 09/23/23 12:39 Source: patient and family Mode of arrival: Wheelchair History of Present Illness HPI Narrative: 78-year-old male on Eliquis and aspirin for atrial fibrillation. Patient was not [place] had a fall, was found to have a humeral fracture was seen in [place] saw orthopedic surgery there. Was started on morphine initially then switch to oxycodone. He presents today as he realized that he hit his head he is abrasions on the back of the scalp as they did not realize where there. He did not have head CT or imaging at that time. He feels a little bit drunk. He states that he stopped his narcotics yesterday morning and has not had any since. He denies any other injuries since. He states his pain is relatively well controlled at his shoulder. They note quite a bit of swelling and bruising but has been tracking down his arm. He has 2 small punctate lesions on his arm that has been bleeding. Patient denies any numbness tingling or weakness. He is able to move his hand normally. He notes a little bit of swelling in his legs. He is not had any chest pain or shortness of breath, no nausea or vomiting, no other GI or urinary symptoms reported. Patient is family drove here from [place]. They live here in her seeking referral for Orthopedic surgery as well. No known drug allergies. No tobacco, does drink alcohol, no recreational drugs. Related Data Home Medications Medication Instructions Recorded Confirmed OMEGA-3/DHA/EPA/FISH OIL ([place]-3 3,000 units PO DAILY ##0 12/05/10 01/09/22 Fish Oil Softgel) allopurinol 300 mg tablet 300 mg PO QDAY ##0 12/05/10 01/09/22 losartan 50 mg tablet (Cozaar) 100 mg PO BEDTIME ##0 12/05/10 01/09/22 aspirin 325 mg PO DAILY 01/05/20 01/09/22 atorvastatin 40 mg PO BEDTIME 01/05/20 01/09/22 cholecalciferol (vitamin D3) 50 50 mcg PO DAILY 01/05/20 01/09/22 mcg (2,000 unit) capsule (Vitamin D3) cyanocobalamin (vitamin B-12) 5,000 mcg PO DAILY 01/05/20 01/09/22 5,000 mcg capsule diltiazem HCl 180 mg 180 mg PO DAILY 01/05/20 01/09/22 tablet,extended release 24 hr Previous Rx's Medication Instructions Recorded benzonatate 150 mg capsule 150 mg PO TID PRN cough #30 caps 01/09/22 Allergies Allergy/AdvReac Type Severity Reaction Status Date / Time No Known Drug Allergies Allergy Verified 09/23/23 12:33 Review of Systems Review of Systems ROS Unobtainable: All systems reviewed & are unremarkable except as noted in HPI and below Patient History Medical History Elevated PSA Gout Hyperlipidemia Hypertension Surgical History Aortic valve replaced History of left hip replacement Family History Father Lung cancer Tobacco use disorder, severe, in controlled environment, dependence Mother Dementia Social History household members: spouse Smoking Status: Never smoker alcohol intake: current substance use type: does not use Smoking Status: Never smoker alcohol intake frequency: 0-2 drinks per day Substance Use Type: does not use Exam Narrative Exam Narrative: GEN: Patient appears in mild distress. Patient's sudden wheelchair. HEAD: No evidence of trauma except for abrasion on his posterior scalp. No raccoon/Tavarez sign. NECK: Nontender, painless range of motion, trachea midline Negative for Nexus criteria, no midline line tenderness, distracting injury, altered mental status, neuro deficit, recent EtOH. EYES: PERRLA, EOMI ENT: External inspection normal, trachea is midline, Nares are clear, no septal hematoma, no oral injury, airway is normal and with normal occlusion, No bony tenderness RESP: Chest is nontender and has symmetric movement, no ecchymosis, breath sounds are normal no crackles, wheezes or rales CVS: Heart sounds are normal, no murmur noted, No JVD. ABG/GI: Nontender, soft, normal bowel sounds, no distention, no organomegaly. NEURO: Oriented AOx3, neuro is grossly intact, sensation and motor is normal all 4 extremities moving, cranial nerves II through XII are intact, GCS is 15 PSYCH: Normal mood and affect BACK: No CVA tenderness, no vertebral tenderness, no step-off's, no crepitus EXT: See above on skin exam, patient has pain over the proximal shoulder/humerus. He is normal sensation throughout bilateral upper extremities and lower extremities. 2+ radial pulses bilaterally. Patient has quite a bit of swelling of his right upper extremity with ecchymosis. Two punctate lesions in the dorsum of his forearm that are oozing blood. Easily stopped with direct pressure and Band-Aids were applied. Patient has a abrasions on his posterior shoulder. No obvious deformity. He has normal range of motion of the elbow and wrist. Tolerates his sling being removed and replaced for evaluation very well. Patient does not have any other bony tenderness on exam. Initial Vital Signs Initial Vital Signs: Vital Signs Temperature 97.6 F 09/23/23 12:20 Pulse Rate 71 09/23/23 12:20 Respiratory Rate 16 09/23/23 12:20 Blood Pressure 100/58 L 09/23/23 12:20 Pulse Oximetry 96 09/23/23 12:20 Oxygen Delivery Method Room Air 09/23/23 12:20 Course Orders Ordered: Discontinued Medications Morphine Sulfate (Morphine 4 Mg/Ml Inj) 4 mg IV NOW ONE Stop: 09/23/23 14:56 Last Admin: 09/23/23 15:29 Dose: 4 mg Documented By: EL Vital Signs Vital signs: Vital Signs - 8 hr 09/23/23 12:20 Temperature 97.6 F Pulse Rate 71 Respiratory Rate 16 Blood Pressure 100/58 L Pulse Oximetry 96 Oxygen Delivery Method Room Air MDM - Fall Lab Data 09/23/23 12:50 09/23/23 12:50 Labs: Lab Results 09/23/23 Range/Units 12:50 WBC 6.3 (4.5-11.0) X10^3/uL RBC 3.63 L (4.5-5.9) X10^6/uL Hgb 12.5 L (13.5-17.5) g/dL Hct 36.6 L (41-53) % MCV 100.7 H (80-100) fL MCH 34.3 H (26-34) PG MCHC 34.0 (30-36) % RDW 14.6 (11.6-14.8) % Plt Count 175 (150-400) X10^3/uL Neut % (Auto) 67.0 (50-75) % Lymph % (Auto) 17.3 L (25-40) % [place] % (Auto) 13.3 (3-14) % Eos % (Auto) 2.0 (2-4) % Baso % (Auto) 0.4 (0-2) % Neut # (Auto) 4300 (9563-0026) /uL Lymph # (Auto) 1100 (1352-3202) /uL [place] # (Auto) 800 (0-900) /uL Eos # (Auto) 100 (0-450) /uL Baso # (Auto) 0 (0-100) /uL PT 23.7 H (9.4-12.5) SECONDS INR 2.1 H (0.9-1.3) APTT 33 (25.1-36.5) SECONDS Sodium 131 L (137-145) mmol/L Potassium 5.1 (3.4-5.1) mmol/L Chloride 103 (98-107) mmol/L Carbon Dioxide 21 L (22-32) mmol/L BUN 73 H (9-20) mg/dL Creatinine 2.09 H (0.66-1.25) mg/dL Estimated GFR 31 L (>60) mL/min BUN/Creatinine Ratio 34.9 H (6-22) Glucose 119 H (80-110) mg/dL Calcium 8.8 (8.4-10.2) mg/dL Total Bilirubin 1.5 H (0.2-1.3) mg/dL AST 44 (17-59) IU/L ALT 31 (<50) IU/L Alkaline Phosphatase 187 H (38-126) U/L Total Protein 7.5 (6.3-8.2) g/dL Albumin 4.0 (3.5-5.0) g/dL Globulin 3.5 (1.7-4.1) g/dL Albumin/Globulin Ratio 1.1 (1.0-2.8) Imaging Data Extremity x-ray #1: Radiologist's Impression: [address] [address] XRay Report Signed Patient: Lee Gleason V MR#: [id number] : 1945 Acct:[id number] Age/Sex: 78 / M Date of Service: 09/23/23 Loc: ED Accession Number: [id number] Procedure: XR shoulder RT min 2V Ordering Provider: Ellen Almanzar D.O. PROCEDURE: XR SHOULDER RT MIN 2V INDICATIONS: patient had humeral fx W presents with swelling/pain TECHNIQUE: Two views of the shoulder were acquired. COMPARISON: None. FINDINGS: Bones: There is a comminuted, slightly displaced fracture predominantly of the humeral neck. No definite extension to the articular surface. The glenohumeral joint is grossly intact. Acromioclavicular interval is normal the visible rib arcs are intact. Soft tissues: No suspicious soft tissue calcifications. IMPRESSION: Mildly displaced right humeral neck fracture without dislocation. Dictated by: Kaylen Muller M.D. on 09/23/2023 at 15:13 Approved by: Kaylen Muller M.D. on 09/23/2023 at 15:14 CT scan - head: Radiologist's Impression: [place] [address] CT Scan Report Signed Patient: Lee Gleason V MR#: [id number] : 1945 Acct:[id number] Age/Sex: 78 / M Date of Service: 09/23/23 Loc: ED Accession Number: [id number] Procedure: CT head/brain wo con Ordering Provider: Ellen Almanzar D.O. PROCEDURE: CT HEAD/BRAIN WO CON INDICATIONS: patient had humeral fx W presents with swelling/pain on Eliq TECHNIQUE: Noncontrast 4.5 mm thick angled axial sections acquired from the foramen magnum to the vertex, with coronal and sagittal reformats. For radiation dose reduction, the following was used: automated exposure control, adjustment of mA and/or kV according to patient size. COMPARISON: None. FINDINGS: Image quality: Diagnostic. CSF spaces: Basal cisterns are patent. No extra-axial fluid collections. The ventricles are symmetric in size and shape. Brain: No intracranial bleeds or masses. There is cerebral volume loss for age, with resultant ventricular and sulcal prominence. There are moderate periventricular and deep white matter chronic small vessel ischemic changes. There is intracranial internal carotid artery atherosclerosis. Skull and face: Calvarium and visualized facial bones appear intact, without suspicious lesions. Sinuses: Visualized sinuses and mastoids are clear. IMPRESSION: No acute intracranial process. Age-related volume loss and moderate small vessel ischemic change. Dictated by: Marino Giordano M.D. on 09/23/2023 at 16:01 Approved by: Marino Giordano M.D. on 09/23/2023 at 16:02 CT - cervical spine: Radiologist's Impression: [address] [address] [address] Scan Report Signed Patient: Lee Gleason V MR#: [id number] : 1945 Acct:[id number] Age/Sex: 78 / M Date of Service: 09/23/23 Loc: ED Accession Number: [id number] Procedure: CT cervical spine wo con Ordering Provider: Ellen Almanzar D.O. PROCEDURE: CT CERVICAL SPINE WO CON INDICATIONS: patient had humeral fx W presents with swelling/pain TECHNIQUE: Noncontrast 3 mm thick sections acquired from the skull base to the T4 level. Sagittal and coronal reformats were then constructed. For radiation dose reduction, the following was used: automated exposure control, adjustment of mA and/or kV according to patient size. COMPARISON: None. FINDINGS: Image quality: Excellent. Bones: No fractures or dislocations. Visualized superior ribs are intact. Severe cervical spondylitic change. Multilevel severe disc height loss and uncovertebral joint osteophytes and facet arthropathy. Multilevel bony foraminal narrowing. Soft tissues: Prevertebral soft tissues are normal in thickness. No paravertebral hematomas. No apical pneumothoraces. IMPRESSION: 1. No acute cervical fracture or dislocation. 2. Severe cervical spondylitic change. Dictated by: Marino Giordano M.D. on 09/23/2023 at 15:52 Approved by: Marino Giordano M.D. on 09/23/2023 at 16:00 [facility] Narrative Medical decision making narrative: 78-year-old male with fall last Saturday patient had a humeral fracture. Was seen in [place]. They noted some bruising or swelling of the back of his scalp in the last day or so but did not appreciated and told the emergency physician in [place] that he had not hit his head. They now suspect that he had and he is anticoagulated. Presents today states he is still bleeding. He has 2 small puncture wounds on his forearm which are oozing. Stopped with direct pressure easily are too small for sutures. Band-Aid was placed. Patient does have quite a bit of swelling and bruising of his upper extremity. He does not have any neurovascular changes otherwise. X-ray imaging was repeated as he will need follow up here locally. Patient's white count 6.3 hemoglobin is 12.5, priors here from 4 years ago, patient has macrocytosis. Platelets are 175. Patient's creatinine is 2.09 priors also from 4 years ago patient's family is unsure if he has prior renal issues or not, sodium is 131 CO2 is 21 with a BUN of 73, glucose of 119 bilirubin is 1.5 with alk-phos of 187. Head CT shows no acute change no bleed, does show age-related volume loss and moderate small-vessel ischemic change.. Cervical C-spine shows degenerative changes, severe cervical spondylitic change. But no fracture. Shoulder x-ray shows mildly displaced right humeral neck fracture without dislocation. Patient's bandages were rechecked, no additional bleeding. Discussed with patient would like for him to follow up for recheck of his labs to make sure that these are his baseline. He is otherwise well-appearing. Discussed findings with patient in his . Contact even for follow up with Orthopedic surgery locally. Discharge Plan Departure Patient Disposition: Home Clinical Impression: Closed right humeral fracture Activity Restrictions/Additional Instructions: Follow up with Orthopedic surgery, call to set up a follow up appointment. Contact information is below. Call 1st thing tomorrow. There is a copy of your labs included. You do appear to be anemic on your lab work, your creatinine is also elevated this is a marker of your renal function. Please share these numbers with your physician and have her labs rechecked if they are not baseline for you. You can continue with Tylenol up to a 1000 mg every 6 hours as needed for pain. You can take your narcotic pain medication as needed but if not required I would just take Tylenol. You may continue your home medications as prescribed. Please return for new or worsening symptoms, persistent bleeding, increasing pain, new numbness tingling or weakness. Severe headaches, new neck or back pain, new chest pain or shortness of breath, persistent vomiting or other new or concerning changes. Prescriptions: No Action benzonatate 150 mg capsule 150 mg PO TID PRN (Reason: cough) Qty: 30 0RF losartan [Cozaar] 50 MG tablet 100 mg PO BEDTIME Qty: 0 allopurinol 300 MG tablet 300 mg PO QDAY Qty: 0 OMEGA-3/DHA/EPA/FISH OIL ([place]-3 Fish Oil Softgel) 3,000 units PO DAILY Qty: 0 diltiazem HCl 180 mg Tablet Extended Release 24 Hr 180 mg PO DAILY atorvastatin 40 mg PO BEDTIME aspirin 325 mg PO DAILY cholecalciferol (vitamin D3) [Vitamin D3] 50 mcg (2,000 unit) Capsule 50 mcg PO DAILY cyanocobalamin (vitamin B-12) 5,000 mcg Capsule 5,000 mcg PO DAILY Referrals: Terence Johnson MD [Physician] - Miscellaneous,MD Wendy [Primary Care Provider] - Stand Alone Forms: Patient Portal/API
[2023-09-23 13:04] LABS: Add Manual Diff / Slide Review NO; Basophils Absolute Auto 0 /uL (0-100); Basophils Percent Auto 0.4 % (0-2); Eosinophils Absolute Auto 100 /uL (0-450); Hematocrit 36.6 % (41-53); Hemoglobin 12.5 g/dL (13.5-17.5); Lymphocytes Absolute Auto 1100 /uL (1100-4500); Lymphocytes Percent Auto 17.3 % (25-40); Mean Corpuscular Hemoglobin 34.3 PG (26-34); Mean Corpuscular Volume 100.7 fL (80-100); Monocytes Absolute Auto 800 /uL (0-900); Monocytes Percent Auto 13.3 % (3-14); Neutrophils Absolute Auto 4300 /uL (1500-7000); Platelet Count 175 X10^3/uL (150-400); Red Blood Cell Count 3.63 X10^6/uL (4.5-5.9); Red Cell Distribution Width 14.6 % (11.6-14.8); White Blood Cell Count 6.3 X10^3/uL (4.5-11.0)
[2023-09-23 13:12] LABS: INR 2.1 (0.9-1.3); Prothrombin Time 23.7 SECONDS (9.4-12.5)
[2023-09-23 13:15] LABS: PTT Partial Thromboplastin Tim 33 SECONDS (25.1-36.5)
[2023-09-23 13:20] LABS: Alanine Aminotransferase 31 IU/L (<50); Albumin Globulin Ratio 1.1 (1.0-2.8); Alkaline Phosphatase 187 U/L (38-126); Aspartate Aminotransferase 44 IU/L (17-59); BUN Creatinine Ratio 34.9 (6-22); Bilirubin Total 1.5 mg/dL (0.2-1.3); Blood Urea Nitrogen 73 mg/dL (9-20); Calcium 8.8 mg/dL (8.4-10.2); Carbon Dioxide 21 mmol/L (22-32); Chloride 103 mmol/L (98-107); Estimated Glomerular Filt Rate 31 mL/min (>60); Globulin 3.5 g/dL (1.7-4.1); Glucose 119 mg/dL (80-110); HEMOLYSIS < 15 (0-50); Potassium 5.1 mmol/L (3.4-5.1); Sodium 131 mmol/L (137-145); Total Protein 7.5 g/dL (6.3-8.2)
[2023-09-23] MEDS: MORPHINE 4 MG/ML INJ IV (15:29)
== END 2023-09-23 17:52 | disposition home or self-care (01) ==
PROVIDERS: Emergency Provider Emergency Medicine
DX: S42.211A Unspecified displaced fracture of surgical neck of right humerus, initial encounter for closed fracture (principal); S00.01XA Abrasion of scalp, initial encounter; W19.XXXA Unspecified fall, initial encounter; Z79.01 Long term (current) use of anticoagulants
CPT/HCPCS: 70450; 72125; 73030; 80053; 85025; 85610; 85730; 96374; 99283; 99284; J2270

== ENCOUNTER 2024-03-04 08:57 | Observation (INO) | payer OTHER, SELFPAY ==
[2020-01-05 17:46] VITALS: BMI 30.7
[2024-03-04] VITALS (40 sets, daily range): BP systolic 136–184; BP diastolic 59–94; PULSE 69–107; RESP 15–32; TEMP 35.8–36.7; O2SAT 92–97; BMI 32.1; BMI 31.8
--- NOTE | 2024-03-04 09:35 | ED_ITS ---
HPI - Male Genitourinary <Chris Mendez MD - Last Filed: 03/08/24 15:14> General Chief complaint: Urogenital-Male Stated complaint: unable to urinate, blood in urine Time Seen by Provider: 03/04/24 09:15 Source: patient Mode of arrival: Ambulatory History of Present Illness HPI Narrative: Patient here with . Here for urinary retention urgency frequency hematuria. Patient is on Eliquis for atrial fibrillation. Patient had radiation therapy for prostate cancer to 4 years ago with [employer]. Has been doing well since then. Two or 3 weeks ago he had some blood clots in his urine and it went away. He did not see anybody for it. However since last night has had some blood clots and feels bladder distention. Related Data Home Medications Medication Instructions Recorded Confirmed OMEGA-3/DHA/EPA/FISH OIL ([place]-3 3,000 units PO DAILY ##0 12/05/10 03/04/24 Fish Oil Softgel) allopurinol 300 mg tablet 300 mg PO QDAY ##0 12/05/10 03/04/24 losartan 50 mg tablet (Cozaar) 100 mg PO BEDTIME ##0 12/05/10 03/04/24 aspirin 325 mg PO DAILY 01/05/20 03/04/24 atorvastatin 40 mg PO BEDTIME 01/05/20 03/04/24 cholecalciferol (vitamin D3) 50 50 mcg PO DAILY 01/05/20 03/04/24 mcg (2,000 unit) capsule (Vitamin D3) cyanocobalamin (vitamin B-12) 5,000 mcg PO DAILY 01/05/20 03/04/24 5,000 mcg capsule Allergies Allergy/AdvReac Type Severity Reaction Status Date / Time No Known Drug Allergies Allergy Verified 03/04/24 09:16 Review of Systems <Chris Mendez MD - Last Filed: 03/08/24 15:14> Review of Systems Narrative: GENERAL: Negative chills, fatigue, malaise, fever, sweats. HEENT: Negative sinus pain, ear pain, sore throat RESPIRATORY: Negative dyspnea, cough CARDIOVASCULAR: Negative chest pain, palpitations GASTROINTESTINAL: Negative nausea, vomiting, abdominal pain : Positive retention and dysuria, hematuria MUSCULOSKELETAL: Negative muscle or bony pain SKIN: Negative rash, skin lesions NEUROLOGIC: Negative weakness, numbness ROS Unobtainable: All systems reviewed & are unremarkable except as noted in HPI and below Patient History <Chris Mendez MD - Last Filed: 03/08/24 15:14> Medical History Elevated PSA Gout Hyperlipidemia Hypertension Surgical History Aortic valve replaced History of left hip replacement Family History Father Lung cancer Tobacco use disorder, severe, in controlled environment, dependence Mother Dementia Social History household members: spouse Smoking Status: Never smoker alcohol intake: current substance use type: does not use Smoking Status: Never smoker alcohol intake frequency: 0-2 drinks per day Substance Use Type: does not use Exam <Chris Mendez MD - Last Filed: 03/08/24 15:14> Narrative Exam Narrative: GENERAL: in no distress, not toxic not dyspneic HEAD: Normocephalic. EYES: Pupils equal round ENT: Mucous membranes moist. NECK: Trachea midline. CARDIOVASCULAR: Regular rate and rhythm RESPIRATORY: Clear to auscultation. Breath sounds equal bilaterally. No wheezes, rales, or rhonchi. GASTROINTESTINAL: Abdomen soft, mild suprapubic tenderness/fullness, bowel sounds are present no peritoneal signs no guarding no rebound EXTREMITIES: No gross deformities. BACK: No flank tenderness. NEURO: AOx4. SKIN: Warm and dry PSYCH: Not anxious, is cooperative Initial Vital Signs Initial Vital Signs: Vital Signs Temperature 98.1 F 03/04/24 09:13 Pulse Rate 74 03/04/24 09:13 Respiratory Rate 18 03/04/24 09:13 Blood Pressure 184/94 H 03/04/24 09:13 Pulse Oximetry 94 03/04/24 09:13 Oxygen Delivery Method Room Air 03/04/24 09:13 <Nelia Mijares DO - Last Filed: 03/05/24 02:03> Initial Vital Signs Initial Vital Signs: Vital Signs Temperature 98.1 F 03/04/24 09:13 Pulse Rate 74 03/04/24 09:13 Respiratory Rate 18 03/04/24 09:13 Blood Pressure 184/94 H 03/04/24 09:13 Pulse Oximetry 94 03/04/24 09:13 Oxygen Delivery Method Room Air 03/04/24 09:13 Course <Chris Mendez MD - Last Filed: 03/08/24 15:14> Orders Ordered: Discontinued Medications Acetaminophen (Acetaminophen 325 Mg Tablet) 650 mg PO Q6H PRN PRN Reason: Fever/Mild Pain (1-3) Hydrocodone Bitart/Acetaminophen (Hydrocodone/Acet 5/325 Tablet) 1 tab PO Q4H PRN PRN Reason: Pain, Moderate (4-6) Allopurinol (Allopurinol 100 Mg Tablet) 300 mg PO DAILY [facility] Last Admin: 03/05/24 09:00 Dose: Not Given Documented By: SB Atorvastatin Calcium (Atorvastatin 20 Mg Tablet) 40 mg PO BEDTIME BERTHA Cephalexin HCl (Cephalexin 250 Mg Capsule) 500 mg PO NOW ONE Stop: 03/04/24 14:16 Last Admin: 03/04/24 14:46 Dose: 500 mg Documented By: JOSE Hydromorphone HCl (Hydromorphone 0.5 Mg Inj) 0.5 mg IV NOW ONE Stop: 03/04/24 18:59 Last Admin: 03/04/24 19:05 Dose: 0.5 mg Documented By: JOSE Sodium Chloride (Normal Saline 0.9%) 1,000 mls @ 100 mls/hr IV CONT [facility] Last Admin: 03/05/24 09:39 Dose: 100 mls/hr Documented By: Infusion: 03/05/24 09:15 Dose: Infused Documented By: Admin: 03/04/24 23:15 Dose: 100 mls/hr Documented By: CT Lidocaine HCl (Lidocaine 2% (Glydo) 6 Ml Gel) 6 ml TOP NOW ONE Stop: 03/04/24 09:47 Last Admin: 03/04/24 10:05 Dose: 6 ml Documented By: SUSANA Lidocaine HCl (Lidocaine 2% (Glydo) 6 Ml Gel) 6 ml TOP NOW ONE Stop: 03/04/24 19:01 Last Admin: 03/04/24 19:09 Dose: 6 ml Documented By: JOSE Midazolam HCl (Midazolam 2 Mg/2 Ml Vial) 2 mg IV NOW ONE Stop: 03/04/24 19:09 Last Admin: 03/04/24 19:34 Dose: 2 mg Documented By: JOSE Naloxone HCl (Naloxone 0.4 Mg/Ml Vial) 0.2 mg IV Q2MIN PRN PRN Reason: Opiate Reversal Ondansetron HCl (Ondansetron 4 Mg/2 Ml Inj) 4 mg IV Q8HR PRN PRN Reason: Nausea And Vomiting Vital Signs Vital signs: Vital Signs - 8 hr 03/04/24 18:00 03/04/24 18:01 03/04/24 18:01 Pulse Rate 89 105 H Respiratory Rate 32 H 26 H Blood Pressure 177/82 H Pulse Oximetry 95 96 03/04/24 18:30 03/04/24 18:31 03/04/24 18:31 Pulse Rate 96 H 96 H Respiratory Rate 20 25 H Blood Pressure 169/59 H Pulse Oximetry 94 95 03/04/24 19:00 03/04/24 19:16 03/04/24 19:16 Pulse Rate 69 96 H Respiratory Rate 26 H Blood Pressure 141/92 H Pulse Oximetry 95 92 03/04/24 19:30 03/04/24 19:30 03/04/24 20:00 Pulse Rate 69 69 Respiratory Rate 23 24 Blood Pressure 158/68 H Pulse Oximetry 93 94 03/04/24 20:01 03/04/24 20:01 03/04/24 20:31 Pulse Rate 69 69 Respiratory Rate 26 H Blood Pressure 136/69 Pulse Oximetry 93 03/04/24 21:00 Pulse Rate 69 Respiratory Rate 20 Blood Pressure Pulse Oximetry 96 <Nelia Mijares, DO - Last Filed: 03/05/24 02:03> Orders Ordered: Discontinued Medications Acetaminophen (Acetaminophen 325 Mg Tablet) 650 mg PO Q6H PRN PRN Reason: Fever/Mild Pain (1-3) Hydrocodone Bitart/Acetaminophen (Hydrocodone/Acet 5/325 Tablet) 1 tab PO Q4H PRN PRN Reason: Pain, Moderate (4-6) Allopurinol (Allopurinol 100 Mg Tablet) 300 mg PO DAILY BERTHA Last Admin: 03/05/24 09:00 Dose: Not Given Documented By: SB Atorvastatin Calcium (Atorvastatin 20 Mg Tablet) 40 mg PO BEDTIME BERTHA Cephalexin HCl (Cephalexin 250 Mg Capsule) 500 mg PO NOW ONE Stop: 03/04/24 14:16 Last Admin: 03/04/24 14:46 Dose: 500 mg Documented By: GW Hydromorphone HCl (Hydromorphone 0.5 Mg Inj) 0.5 mg IV NOW ONE Stop: 03/04/24 18:59 Last Admin: 03/04/24 19:05 Dose: 0.5 mg Documented By: JOSE Sodium Chloride (Normal Saline 0.9%) 1,000 mls @ 100 mls/hr IV CONT BERTHA Last Admin: 03/05/24 09:39 Dose: 100 mls/hr Documented By: Infusion: 03/05/24 09:15 Dose: Infused Documented By: Admin: 03/04/24 23:15 Dose: 100 mls/hr Documented By: ABIGAIL Lidocaine HCl (Lidocaine 2% (Glydo) 6 Ml Gel) 6 ml TOP NOW ONE Stop: 03/04/24 09:47 Last Admin: 03/04/24 10:05 Dose: 6 ml Documented By: SUSANA Lidocaine HCl (Lidocaine 2% (Glydo) 6 Ml Gel) 6 ml TOP NOW ONE Stop: 03/04/24 19:01 Last Admin: 03/04/24 19:09 Dose: 6 ml Documented By: JOSE Midazolam HCl (Midazolam 2 Mg/2 Ml Vial) 2 mg IV NOW ONE Stop: 03/04/24 19:09 Last Admin: 03/04/24 19:34 Dose: 2 mg Documented By: JOSE Naloxone HCl (Naloxone 0.4 Mg/Ml Vial) 0.2 mg IV Q2MIN PRN PRN Reason: Opiate Reversal Ondansetron HCl (Ondansetron 4 Mg/2 Ml Inj) 4 mg IV Q8HR PRN PRN Reason: Nausea And Vomiting Vital Signs Vital signs: Vital Signs - 8 hr 03/04/24 18:00 03/04/24 18:01 03/04/24 18:01 Pulse Rate 89 105 H Respiratory Rate 32 H 26 H Blood Pressure 177/82 H Pulse Oximetry 95 96 03/04/24 18:30 03/04/24 18:31 03/04/24 18:31 Pulse Rate 96 H 96 H Respiratory Rate 20 25 H Blood Pressure 169/59 H Pulse Oximetry 94 95 03/04/24 19:00 03/04/24 19:16 03/04/24 19:16 Pulse Rate 69 96 H Respiratory Rate 26 H Blood Pressure 141/92 H Pulse Oximetry 95 92 03/04/24 19:30 03/04/24 19:30 03/04/24 20:00 Pulse Rate 69 69 Respiratory Rate 23 24 Blood Pressure 158/68 H Pulse Oximetry 93 94 03/04/24 20:01 03/04/24 20:01 03/04/24 20:31 Pulse Rate 69 69 Respiratory Rate 26 H Blood Pressure 136/69 Pulse Oximetry 93 03/04/24 21:00 Pulse Rate 69 Respiratory Rate 20 Blood Pressure Pulse Oximetry 96 MDM - Male Genitourinary <Chris Mendez MD - Last Filed: 03/08/24 15:14> Lab Data 03/05/24 05:18 03/05/24 05:18 Labs: Lab Results 03/04/24 03/04/24 03/04/24 Range/Units 09:57 10:31 19:04 WBC 6.5 7.7 (4.5-11.0) X10^3/uL RBC 4.11 L 4.06 L (4.5-5.9) X10^6/uL Hgb 14.1 13.9 (13.5-17.5) g/dL Hct 41.9 41.5 (41-53) % MCV 102.0 H 102.0 H (80-100) fL MCH 34.3 H 34.2 H (26-34) PG MCHC 33.7 33.5 (30-36) % RDW 14.7 14.5 (11.6-14.8) % Plt Count 145 L 148 L (150-400) X10^3/uL Neut % (Auto) 73.9 63.8 (50-75) % Lymph % (Auto) 15.7 L 23.2 L (25-40) % [place] % (Auto) 9.3 11.3 (3-14) % Eos % (Auto) 0.3 L 0.8 L (2-4) % Baso % (Auto) 0.8 0.9 (0-2) % Neut # (Auto) 4800 4900 (0292-1829) /uL Lymph # (Auto) 1000 L 1800 (9242-0606) /uL [place] # (Auto) 600 900 (0-900) /uL Eos # (Auto) 0 100 (0-450) /uL Baso # (Auto) 100 100 (0-100) /uL PT 14.1 H (9.4-12.5) SECONDS INR 1.2 (0.9-1.3) APTT 41 H (25.1-36.5) SECONDS Sodium 137 (137-145) mmol/L Potassium 4.8 (3.4-5.1) mmol/L Chloride 106 (98-107) mmol/L Carbon Dioxide 21 L (22-32) mmol/L BUN 20 (9-20) mg/dL Creatinine 1.11 (0.66-1.25) mg/dL Estimated GFR > 60 (>60) mL/min BUN/Creatinine Ratio 18.0 (6-22) Glucose 112 H (80-110) mg/dL Calcium 9.6 (8.4-10.2) mg/dL Total Bilirubin 0.8 (0.2-1.3) mg/dL AST 45 (17-59) IU/L ALT 36 (<50) IU/L Alkaline Phosphatase 169 H (38-126) U/L Total Protein 8.3 H (6.3-8.2) g/dL Albumin 4.5 (3.5-5.0) g/dL Globulin 3.8 (1.7-4.1) g/dL Albumin/Globulin Ratio 1.2 (1.0-2.8) Urine Color Red Urine Appearance Turbid Urine pH 6.0 (4.5-8.0) Ur Specific [place] 1.020 (1.000-1.035) Urine Protein 3+ H (Negative) Urine Glucose (UA) Negative (Negative) g/dL Urine Ketones Negative (NEGATIVE) Urine Occult Blood 3+ H (Negative) Urine Nitrate Positive H (Negative) Urine Bilirubin 1+ H (NEGATIVE) Ur Bilirubin Confirm Negative (Negative) Urine Urobilinogen 0.2 (0.2) E.U./dL Ur Leukocyte Esterase Negative (NEGATIVE) Urine RBC >100/hpf H (0-5/HPF) Urine WBC None seen (0-5/HPF) Ur Squamous Epith Cells None seen (0-5/HPF) Urine Bacteria None seen (None) Ur Culture Indicated? Specimen cultured Vol Urine Centrifuged 10ml (spun) MDM Narrative Medical decision making narrative: Patient here with . Here for urinary retention urgency frequency hematuria. Patient is on Eliquis for atrial fibrillation. Patient had radiation therapy for prostate cancer to 4 years ago with [employer]. Has been doing well since then. Two or 3 weeks ago he had some blood clots in his urine and it went away. He did not see anybody for it. However since last night has had some blood clots and feels bladder distention. After history and exam CBC CMP PT INR PTT bladder scan Ferris catheter, Urology consult Bladder scan 750 mL MDM Medical records reviewed: No recent visit for this complaint Differential considered: Includes but not limited to urinary retention bladder cancer, Eliquis side effects Lab Test results independently reviewed as above. Pertinent findings: WBC 6.5 hemoglobin 14.1 sodium 137 potassium 4.8 BUN 20 creatinine 1.11 GFR greater than 60 Urine positive blood positive nitrate INR 1.2 Imaging studies independently reviewed: None indicated Consultations: 11:19 a.m.. Spoke with the [facility] urology, Dr. Su, patient is on Eliquis for atrial fibrillation. Heart valve is bovine. Not metal. Patient to be off Eliquis for 2 days, can follow up in the office with our local urologist or their group. Treatments: CBI Re-evaluations: 3:30 p.m.. Still some blood in see BI. However has improved. 5:30 p.m.. CBI in Ferris bag is clearing up. Discussion: Diagnosis: 6:00 p.m.. Andrea: Sign out to Dr Mijares , bladder irrigation is improving. Home medications being brought by here. May be able to be discharged home pending improvement. We do have urology on-call with our group here tomorrow if needed to be admitted. Currently [facility] is on-call for Urology. <Nelia Mijares, DO - Last Filed: 03/05/24 02:03> Lab Data Labs: Lab Results 03/04/24 03/04/24 03/04/24 Range/Units 09:57 10:31 19:04 WBC 6.5 7.7 (4.5-11.0) X10^3/uL RBC 4.11 L 4.06 L (4.5-5.9) X10^6/uL Hgb 14.1 13.9 (13.5-17.5) g/dL Hct 41.9 41.5 (41-53) % MCV 102.0 H 102.0 H (80-100) fL MCH 34.3 H 34.2 H (26-34) PG MCHC 33.7 33.5 (30-36) % RDW 14.7 14.5 (11.6-14.8) % Plt Count 145 L 148 L (150-400) X10^3/uL Neut % (Auto) 73.9 63.8 (50-75) % Lymph % (Auto) 15.7 L 23.2 L (25-40) % [place] % (Auto) 9.3 11.3 (3-14) % Eos % (Auto) 0.3 L 0.8 L (2-4) % Baso % (Auto) 0.8 0.9 (0-2) % Neut # (Auto) 4800 4900 (9115-8840) /uL Lymph # (Auto) 1000 L 1800 (5092-9723) /uL [place] # (Auto) 600 900 (0-900) /uL Eos # (Auto) 0 100 (0-450) /uL Baso # (Auto) 100 100 (0-100) /uL PT 14.1 H (9.4-12.5) SECONDS INR 1.2 (0.9-1.3) APTT 41 H (25.1-36.5) SECONDS Sodium 137 (137-145) mmol/L Potassium 4.8 (3.4-5.1) mmol/L Chloride 106 (98-107) mmol/L Carbon Dioxide 21 L (22-32) mmol/L BUN 20 (9-20) mg/dL Creatinine 1.11 (0.66-1.25) mg/dL Estimated GFR > 60 (>60) mL/min BUN/Creatinine Ratio 18.0 (6-22) Glucose 112 H (80-110) mg/dL Calcium 9.6 (8.4-10.2) mg/dL Total Bilirubin 0.8 (0.2-1.3) mg/dL AST 45 (17-59) IU/L ALT 36 (<50) IU/L Alkaline Phosphatase 169 H (38-126) U/L Total Protein 8.3 H (6.3-8.2) g/dL Albumin 4.5 (3.5-5.0) g/dL Globulin 3.8 (1.7-4.1) g/dL Albumin/Globulin Ratio 1.2 (1.0-2.8) Urine Color Red Urine Appearance Turbid Urine pH 6.0 (4.5-8.0) Ur Specific [place] 1.020 (1.000-1.035) Urine Protein 3+ H (Negative) Urine Glucose (UA) Negative (Negative) g/dL Urine Ketones Negative (NEGATIVE) Urine Occult Blood 3+ H (Negative) Urine Nitrate Positive H (Negative) Urine Bilirubin 1+ H (NEGATIVE) Ur Bilirubin Confirm Negative (Negative) Urine Urobilinogen 0.2 (0.2) E.U./dL Ur Leukocyte Esterase Negative (NEGATIVE) Urine RBC >100/hpf H (0-5/HPF) Urine WBC None seen (0-5/HPF) Ur Squamous Epith Cells None seen (0-5/HPF) Urine Bacteria None seen (None) Ur Culture Indicated? Specimen cultured Vol Urine Centrifuged 10ml (spun) Imaging Data CT scan - abdomen/pelvis: Radiologist's Impression: PROCEDURE: CT ABDOMEN PELVIS W CON INDICATIONS: persistant hematuria TECHNIQUE: After the administration of intravenous contrast, axial sections acquired from the lung bases to the pubic symphysis. Coronal and sagittal reformats were performed. For radiation dose reduction, the following was used: automated exposure control, adjustment of mA and/or kV according to patient size. COMPARISON: None. FINDINGS: Image quality: Diagnostic. Lower Chest: 7 mm left subpleural part solid lower lobe pulmonary nodule. Moderate cardiomegaly. Aortic valvuloplasty and pacemaker leads partially seen. ABDOMEN: Liver: Cirrhotic liver morphology including a nodular margin and hypertrophy of left and caudate lobe. No discrete mass. Gallbladder: No wall thickening or calcified stones. Biliary ducts: No biliary dilation. Pancreas: Normal size and morphology without visible ductal dilatation or inflammation. Spleen: Size is within normal limits. Adrenal Glands: Subcentimeter fatty nodule in the body of the right adrenal gland consistent with a myelolipoma. No solid adrenal nodules. Kidneys and Ureters: Symmetric enhancement. No nephrolithiasis or hydronephrosis. No hydroureter. Mild bilateral perinephric inflammation and periureteric inflammation. Stomach and Bowel: Stomach and small bowel loops are normal caliber. Normal appendix. Normal quantity of colonic stool. No suspicious colon wall thickening or inflammation. Scattered moderate murphy colonic diverticulosis. Peritoneum: No abnormal intraperitoneal fluid. No free air. Ventral Wall: No significant ventral hernia. Abdominal Nodes: No retroperitoneal or mesenteric adenopathy by size criteria. Vessels: Tiny saccular thrombosed abdominal aortic aneurysm arising right and posterior. Moderate abdominal aortic atherosclerotic calcification. IVC and portal vein are normal caliber. PELVIS: Pelvic Organs: Diminutive prostate gland. Bladder: There is a Ferris catheter in the urinary bladder. There is prominent mount of non dependent air and layering poorly defined hyperdense intraluminal material, potentially hemorrhage. No definite wall thickening given instrumentation. Pelvic Nodes: No enlarged lymph nodes. Miscellaneous: No inguinal hernias are seen. Bones: Left hip arthroplasty. Multilevel degenerative disc and endplate changes throughout the spine. No suspicious bone lesions. IMPRESSION: There is a Ferris catheter balloon and hyperdense material within the lumen. Air suggests recent catheterization. Nonspecific bilateral perinephric and periureteric inflammatory changes without evidence of obstructive uropathy, stone, or abnormal enhancement. Correlate with UA to rule out infection. Cirrhotic liver morphology. 7 mm left lower lobe lung nodule. Recommend follow-up chest CT in 6-12 months to document stability. Dictated by: Kaylen Muller M.D. on 03/04/2024 at 20:41 MDM Narrative Medical decision making narrative: Patient here with . Here for urinary retention urgency frequency hematuria. Patient is on Eliquis for atrial fibrillation. Patient had radiation therapy for prostate cancer to 4 years ago with [employer]. Has been doing well since then. Two or 3 weeks ago he had some blood clots in his urine and it went away. He did not see anybody for it. However since last night has had some blood clots and feels bladder distention. After history and exam CBC CMP PT INR PTT bladder scan Ferris catheter, Urology consult Bladder scan 750 mL MDM Medical records reviewed: No recent visit for this complaint Differential considered: Includes but not limited to urinary retention bladder cancer, Eliquis side effects Lab Test results independently reviewed as above. Pertinent findings: WBC 6.5 hemoglobin 14.1 sodium 137 potassium 4.8 BUN 20 creatinine 1.11 GFR greater than 60 Urine positive blood positive nitrate INR 1.2 Imaging studies independently reviewed: None indicated Consultations: 11:19 a.m.. Spoke with the [facility] urology, Dr. Su, patient is on Eliquis for atrial fibrillation. Heart valve is bovine. Not metal. Patient to be off Eliquis for 2 days, can follow up in the office with our local urologist or their group. Treatments: CBI Re-evaluations: 3:30 p.m.. Still some blood in see BI. However has improved. 5:30 p.m.. CBI in Ferris bag is clearing up. Discussion: Diagnosis: 6:00 p.m.. Andrea: Sign out to Dr Mijares , bladder irrigation is improving. Home medications being brought by here. May be able to be discharged home pending improvement. We do have urology on-call with our group here tomorrow if needed to be admitted. Currently [facility] is on-call for Urology. Dr. Mijraes-I received sign-out from Dr. Peralta I have seen evaluated patient myself. 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 After being clamped it got dark again. Repeat blood work does not show significant drop in hemoglobin or hematocrit he will when went to 13.9/41.5 Patient also had nitrates in his urine but no leukocytes he is given [address] Miller, local urology updated on patient's symptoms test results he came to the ED for evaluation placed a hematuria catheter. He is happy to help care for the patient in the hospital tomorrow. He will take patient to the OR in the morning. Requested patient be admitted to hospitalist service. CT abdomen pelvis does suggest potential hemorrhage with layering and poorly defined hyperdense intraluminal material. Dr. Ramos accepts patient Discharge Plan Departure Patient Disposition: Admitted as Observation Clinical Impression: Acute urinary retention Hematuria Qualifiers: Hematuria type: unspecified type Qualified Code(s): R31.9 - Hematuria, unspecified Admit Date/Time: 03/04/24 21:21 Admit Provider: Deo Ramos
[2024-03-04] MEDS: LIDOCAINE 2% (GLYDO) 6 ML GEL TOP ×2 (10:05→19:09)
[2024-03-04 10:07] LABS: Add Manual Diff / Slide Review NO; Basophils Absolute Auto 100 /uL (0-100); Basophils Percent Auto 0.8 % (0-2); Eosinophils Absolute Auto 0 /uL (0-450); Eosinophils Percent Auto 0.3 % (2-4); Hematocrit 41.9 % (41-53); Hemoglobin 14.1 g/dL (13.5-17.5); Lymphocytes Absolute Auto 1000 /uL (1100-4500); Lymphocytes Percent Auto 15.7 % (25-40); Mean Corpuscular HGB Conc 33.7 % (30-36); Mean Corpuscular Hemoglobin 34.3 PG (26-34); Monocytes Absolute Auto 600 /uL (0-900); Monocytes Percent Auto 9.3 % (3-14); Neutrophils Absolute Auto 4800 /uL (1500-7000); Neutrophils Percent Auto 73.9 % (50-75); Platelet Count 145 X10^3/uL (150-400); Red Blood Cell Count 4.11 X10^6/uL (4.5-5.9); Red Cell Distribution Width 14.7 % (11.6-14.8); White Blood Cell Count 6.5 X10^3/uL (4.5-11.0)
[2024-03-04 10:27] LABS: Alanine Aminotransferase 36 IU/L (<50); Albumin 4.5 g/dL (3.5-5.0); Albumin Globulin Ratio 1.2 (1.0-2.8); Alkaline Phosphatase 169 U/L (38-126); Aspartate Aminotransferase 45 IU/L (17-59); Bilirubin Total 0.8 mg/dL (0.2-1.3); Blood Urea Nitrogen 20 mg/dL (9-20); Calcium 9.6 mg/dL (8.4-10.2); Carbon Dioxide 21 mmol/L (22-32); Chloride 106 mmol/L (98-107); Estimated Glomerular Filt Rate > 60 mL/min (>60); Globulin 3.8 g/dL (1.7-4.1); Glucose 112 mg/dL (80-110); HEMOLYSIS < 15 (0-50); Potassium 4.8 mmol/L (3.4-5.1); Sodium 137 mmol/L (137-145); Total Protein 8.3 g/dL (6.3-8.2)
[2024-03-04 10:42] LABS: INR 1.2 (0.9-1.3); PTT Partial Thromboplastin Tim 41 SECONDS (25.1-36.5); Prothrombin Time 14.1 SECONDS (9.4-12.5)
[2024-03-04 10:52] LABS: Appearance Urine UA TURBID; Bilirubin Urine UA 1+ (NEGATIVE); Color Urine UA RED; Glucose Urine UA NEGATIVE (Negative); Ketones Urine UA NEGATIVE (NEGATIVE); Leukocyte Esterase Urine UA NEGATIVE (NEGATIVE); Nitrite Urine UA POSITIVE (Negative); Occult Blood Urine UA 3+ (Negative); Protein Urine UA 3+ (Negative); Urobilinogen Urine UA 0.2 E.U./dL (0.2)
[2024-03-04 10:54] LABS: Ictotest Urine Negative (Negative); RBC Urine >100/HPF (0-5/HPF); Urine Volume 10mL (spun); WBC Urine None Seen (0-5/HPF)
[2024-03-04 10:55] LABS: Bacteria Urine None Seen; Culture Indicated Urine Specimen Cultured; Squamous Epithelial Cell Urine None Seen (0-5/HPF)
--- NOTE | 2024-03-04 11:39 | PC.NURSE ---
Addendum entered by Carey Crandall R.N. 03/04/24 11:51: patient tolerating CBI well, 1800 instilled with 2300 output at this time, urine remains pink tinged Original Note: Patient had [address] catheter placed but no drainage, tried manual irrigation instilling 60cc and pulling back and got not output. Removed the 22 salvadorean and placed 24 salvadorean with charge nurse Merlyn, patient tolerated procedure well. Catheter is patent and draining pink tinged urine.
[2024-03-04] MEDS: cephALEXin 250 MG CAPSULE 500 MG PO (14:46)
--- NOTE | 2024-03-04 18:06 | EKG_ITS ---
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
[2024-03-04] MEDS: HYDROMORPHONE 0.5 MG INJ IV (19:05)
[2024-03-04 19:14] LABS: Add Manual Diff / Slide Review NO; Basophils Absolute Auto 100 /uL (0-100); Basophils Percent Auto 0.9 % (0-2); Eosinophils Absolute Auto 100 /uL (0-450); Eosinophils Percent Auto 0.8 % (2-4); Hematocrit 41.5 % (41-53); Hemoglobin 13.9 g/dL (13.5-17.5); Lymphocytes Absolute Auto 1800 /uL (1100-4500); Lymphocytes Percent Auto 23.2 % (25-40); Mean Corpuscular HGB Conc 33.5 % (30-36); Mean Corpuscular Hemoglobin 34.2 PG (26-34); Monocytes Absolute Auto 900 /uL (0-900); Monocytes Percent Auto 11.3 % (3-14); Neutrophils Absolute Auto 4900 /uL (1500-7000); Neutrophils Percent Auto 63.8 % (50-75); Platelet Count 148 X10^3/uL (150-400); Red Blood Cell Count 4.06 X10^6/uL (4.5-5.9); Red Cell Distribution Width 14.5 % (11.6-14.8); White Blood Cell Count 7.7 X10^3/uL (4.5-11.0)
[2024-03-04] MEDS: MIDAZOLAM 2 MG/2 ML VIAL IV (19:34)
--- NOTE | 2024-03-04 19:35 | PC.NURSE ---
Urologist Angela at bedside and placed different irrigating catheter, patient given pain meds and versed for comfort during catheter placement see MAR, manual irrigation yielded several large clots, catheter is draining pink tinged urine
--- NOTE | 2024-03-04 19:37 | DI.CT.S_ITS ---
PROCEDURE: CT ABDOMEN PELVIS W CON INDICATIONS: persistant hematuria TECHNIQUE: After the administration of intravenous contrast, axial sections acquired from the lung bases to the pubic symphysis. Coronal and sagittal reformats were performed. For radiation dose reduction, the following was used: automated exposure control, adjustment of mA and/or kV according to patient size. COMPARISON: None. FINDINGS: Image quality: Diagnostic. Lower Chest: 7 mm left subpleural part solid lower lobe pulmonary nodule. Moderate cardiomegaly. Aortic valvuloplasty and pacemaker leads partially seen. ABDOMEN: Liver: Cirrhotic liver morphology including a nodular margin and hypertrophy of left and caudate lobe. No discrete mass. Gallbladder: No wall thickening or calcified stones. Biliary ducts: No biliary dilation. Pancreas: Normal size and morphology without visible ductal dilatation or inflammation. Spleen: Size is within normal limits. Adrenal Glands: Subcentimeter fatty nodule in the body of the right adrenal gland consistent with a myelolipoma. No solid adrenal nodules. Kidneys and Ureters: Symmetric enhancement. No nephrolithiasis or hydronephrosis. No hydroureter. Mild bilateral perinephric inflammation and periureteric inflammation. Stomach and Bowel: Stomach and small bowel loops are normal caliber. Normal appendix. Normal quantity of colonic stool. No suspicious colon wall thickening or inflammation. Scattered moderate murphy colonic diverticulosis. Peritoneum: No abnormal intraperitoneal fluid. No free air. Ventral Wall: No significant ventral hernia. Abdominal Nodes: No retroperitoneal or mesenteric adenopathy by size criteria. Vessels: Tiny saccular thrombosed abdominal aortic aneurysm arising right and posterior. Moderate abdominal aortic atherosclerotic calcification. IVC and portal vein are normal caliber. PELVIS: Pelvic Organs: Diminutive prostate gland. Bladder: There is a Ferris catheter in the urinary bladder. There is prominent mount of non dependent air and layering poorly defined hyperdense intraluminal material, potentially hemorrhage. No definite wall thickening given instrumentation. Pelvic Nodes: No enlarged lymph nodes. Miscellaneous: No inguinal hernias are seen. Bones: Left hip arthroplasty. Multilevel degenerative disc and endplate changes throughout the spine. No suspicious bone lesions. IMPRESSION: There is a Ferris catheter balloon and hyperdense material within the lumen. Air suggests recent catheterization. Nonspecific bilateral perinephric and periureteric inflammatory changes without evidence of obstructive uropathy, stone, or abnormal enhancement. Correlate with UA to rule out infection. Cirrhotic liver morphology. 7 mm left lower lobe lung nodule. Recommend follow-up chest CT in 6-12 months to document stability. Dictated by: Kaylen Muller M.D. on 03/04/2024 at 20:41 Approved by: Kaylen Muller M.D. on 03/04/2024 at 20:49
--- NOTE | 2024-03-04 19:59 | P.CONS_ITS ---
History of Present Illness Consult details Date Patient Seen: 03/04/24 Time Patient Seen: 19:59 Chief complaint: unable to urinate, blood in urine Narrative: 79 y/o M w/ h/o prostate cancer treated w/ XRT who presents to ER for evaluation of gross hematuria and inability to urinate. Briefly, he was diagnosed w/ prostate cancer (do not have details of his pathology results from his TRUS prostate biopsy), however, explains that he was treated w/ XRT a little more than two years ago. He developed gross hematuria and passage of blood clots on 03 Mar 2024 that persisted until this morning. He was unable to urinate this morning despite the feeling that his bladder was full, therefore, he presented to ER for further evaluation. His WBC is 7.7, Hgb 13.9 and his sCr is 1.11. His UA was consistent w/ gross hematuria, not an active urinary tract infection. A marina catheter was placed w/ immediate drainage of nearly 850 cc of dark red urine w/ clots. This catheter was eventually upsized to a 22Fr 3-way catheter and CBI was started. After he had gone through 8 bags of CBI, the decision was made to consult Urology for additional assistance. Upon presentation to bedside, his catheter was draining dark red urine w/ small clots w/ his CBI clamped. Meds Home Medications and Allergies Home Medications Medication Instructions Recorded Confirmed Type OMEGA-3/DHA/EPA/FISH OIL ([place]-3 3,000 units PO DAILY ##0 12/05/10 01/09/22 History Fish Oil Softgel) allopurinol 300 mg tablet 300 mg PO QDAY ##0 12/05/10 01/09/22 History losartan 50 mg tablet (Cozaar) 100 mg PO BEDTIME ##0 12/05/10 01/09/22 History aspirin 325 mg PO DAILY 01/05/20 01/09/22 History atorvastatin 40 mg PO BEDTIME 01/05/20 01/09/22 History cholecalciferol (vitamin D3) 50 50 mcg PO DAILY 01/05/20 01/09/22 History mcg (2,000 unit) capsule (Vitamin D3) cyanocobalamin (vitamin B-12) 5,000 mcg PO DAILY 01/05/20 01/09/22 History 5,000 mcg capsule diltiazem HCl 180 mg 180 mg PO DAILY 01/05/20 01/09/22 History tablet,extended release 24 hr benzonatate 150 mg capsule 150 mg PO TID PRN cough #30 caps 01/09/22 01/09/22 Rx Allergies Allergy/AdvReac Type Severity Reaction Status Date / Time No Known Drug Allergies Allergy Verified 03/04/24 09:16 Review of Systems Review of Systems Narrative: CONSTITUTIONAL: Denies weight loss, fevers, chills. HEENT: Denies change in vision, hearing. RESP: Denies SOB, cough. CV: Denies palpations, CP. GI: Denies abdominal pain, nausea, vomiting, diarrhea. : Denies dysuria. MSK: Denies myalgia, joint pain. SKIN: Denies rash, pruritus. NEURO: Denies headache, syncope. PSYCH: Denies recent change in mood, anxiety, depression. Exam Vital Signs (past 8 hours): - 03/04/24 12:00 03/04/24 12:30 03/04/24 13:00 Pulse Rate 70 69 69 Respiratory Rate 19 17 24 Blood Pressure Pulse Oximetry 95 93 94 03/04/24 13:02 03/04/24 13:02 03/04/24 13:30 Pulse Rate 69 70 Respiratory Rate 18 Blood Pressure 156/72 H Pulse Oximetry 97 95 03/04/24 13:30 03/04/24 14:00 03/04/24 14:01 Pulse Rate 69 Respiratory Rate 15 Blood Pressure 170/82 H 178/85 H Pulse Oximetry 96 03/04/24 14:01 03/04/24 14:30 03/04/24 14:31 Pulse Rate 69 69 69 Respiratory Rate 15 17 17 Blood Pressure Pulse Oximetry 95 96 95 03/04/24 14:31 03/04/24 15:00 03/04/24 15:01 Pulse Rate 69 69 Respiratory Rate 24 25 H Blood Pressure 172/81 H Pulse Oximetry 95 95 03/04/24 15:03 03/04/24 15:03 03/04/24 15:30 Pulse Rate 69 69 Respiratory Rate 25 H Blood Pressure 161/72 H Pulse Oximetry 95 94 03/04/24 15:31 03/04/24 15:31 03/04/24 16:00 Pulse Rate 72 87 Respiratory Rate 20 17 Blood Pressure 140/70 Pulse Oximetry 94 94 03/04/24 16:01 03/04/24 16:01 03/04/24 16:30 Pulse Rate 90 86 Respiratory Rate 20 18 Blood Pressure 151/65 H Pulse Oximetry 93 94 03/04/24 16:31 03/04/24 16:31 03/04/24 17:00 Pulse Rate 88 107 H Respiratory Rate 21 Blood Pressure 138/64 Pulse Oximetry 94 94 03/04/24 17:02 03/04/24 17:02 Pulse Rate 82 Respiratory Rate Blood Pressure 171/81 H Pulse Oximetry 94 Oxygen Delivery Method Room Air Narrative Exam Narrative: GEN: Alert and oriented X3. No acute distress. Well-nourished. EYES: PERRLA, EOMI. HENT: Moist mucus membranes, no scleral icterus, normal neck ROM. RESP: Unlabored breathing, equal rise and fall of chest bilaterally, no cyanosis appreciated. CV: No peripheral edema, unremarkable heart rate. ABD: Soft, non-tender, non-distended, no palpable masses. : Marina catheter removed and a new 24Fr Pepper 3-way hematuria catheter placed under sterile technique with immediate drainage of dark red urine w/ clots. 30cc of sterile water was utilized for balloon insufflation. 100cc of blood clots was manually evacuated from his bladder. EXT: No edema, clubbing or cyanosis. SKIN: No rashes or lesions. NEURO: No focal neurologic deficits, CN II-XII grossly intact. PSYCH: Cooperative, appropriate mood and affect. Objective Labs 03/04/24 19:04 03/04/24 09:57 Labs: Laboratory Results - last 24 hr 03/04/24 03/04/24 03/04/24 09:57 10:31 19:04 WBC 6.5 7.7 RBC 4.11 L 4.06 L Hgb 14.1 13.9 Hct 41.9 41.5 MCV 102.0 H 102.0 H MCH 34.3 H 34.2 H MCHC 33.7 33.5 RDW 14.7 14.5 Plt Count 145 L 148 L Neut % (Auto) 73.9 63.8 Lymph % (Auto) 15.7 L 23.2 L [place] % (Auto) 9.3 11.3 Eos % (Auto) 0.3 L 0.8 L Baso % (Auto) 0.8 0.9 Neut # (Auto) 4800 4900 Lymph # (Auto) 1000 L 1800 [place] # (Auto) 600 900 Eos # (Auto) 0 100 Baso # (Auto) 100 100 PT 14.1 H INR 1.2 APTT 41 H Sodium 137 Potassium 4.8 Chloride 106 Carbon Dioxide 21 L BUN 20 Creatinine 1.11 Estimated GFR > 60 BUN/Creatinine Ratio 18.0 Glucose 112 H Calcium 9.6 Total Bilirubin 0.8 AST 45 ALT 36 Alkaline Phosphatase 169 H Total Protein 8.3 H Albumin 4.5 Globulin 3.8 Albumin/Globulin Ratio 1.2 Urine Color Red Urine Appearance Turbid Urine pH 6.0 Ur Specific [place] 1.020 Urine Protein 3+ H Urine Glucose (UA) Negative Urine Ketones Negative Urine Occult Blood 3+ H Urine Nitrate Positive H Urine Bilirubin 1+ H Ur Bilirubin Confirm Negative Urine Urobilinogen 0.2 Ur Leukocyte Esterase Negative Urine RBC >100/hpf H Urine WBC None seen Ur Squamous Epith Cells None seen Urine Bacteria None seen Ur Culture Indicated? Specimen cultured Vol Urine Centrifuged 10ml (spun) PFSH Medical History Elevated PSA Gout Hyperlipidemia Hypertension Surgical History Aortic valve replaced History of left hip replacement Family History Father Lung cancer Tobacco use disorder, severe, in controlled environment, dependence Mother Dementia Social History household members: spouse Tobacco & Substance Use Smoking Status: Never smoker alcohol intake: current substance use type: does not use Assessment & Plan Assessment and plan (1) Hematuria: Qualifiers: Hematuria type: unspecified type Qualified Code(s): R31.9 - Hematuria, unspecified Status: Acute Plan: 79 y/o M w/ h/o prostate cancer treated w/ XRT more than two years ago who developed clot retention w/in the last 24 hours presented to ER for further evaluation. His marina catheter was removed and a new 24Fr Pepper 3-way hematuria catheter was placed. 100cc of clot was manually evacuated from his bladder. CBI is running on a fast drip w/ light pink efflux w/ minimal passage of clots. 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 - Please titrate CBI to clear efflux - NPO at midnight in case he requires a cystoscopy, clot evacuation and bladder fulguration - Will re-evaluate in the AM and assume care of this patient - Please hold his blood thinners in the interim if medically acceptable - Appreciate assistance of the hospitalist (2) Acute urinary retention: Status: Acute Time-Based Coding :: [TOTAL MINUTES] spent with patient and on the chart (including review of chart, obtaining history, exam, reviewing outside data, placing orders, documenting exam and treatment plan, and counseling patient) on [DATE]. PROFEE Charge Codes Inpatient or Observation consultation: [id number]
--- NOTE | 2024-03-04 20:41 | PC.NURSE ---
Insensible urine losses when Dr Lopez was doing manual irrigation
[2024-03-04] MEDS: SODIUM CHLORIDE 0.9% 1,000 ML 100 ML IV (23:15)
[2024-03-05 05:33] LABS: Add Manual Diff / Slide Review NO; Basophils Absolute Auto 100 /uL (0-100); Basophils Percent Auto 0.8 % (0-2); Eosinophils Absolute Auto 100 /uL (0-450); Eosinophils Percent Auto 1.4 % (2-4); Hematocrit 38.3 % (41-53); Lymphocytes Absolute Auto 1600 /uL (1100-4500); Lymphocytes Percent Auto 18.7 % (25-40); Mean Corpuscular HGB Conc 34.1 % (30-36); Mean Corpuscular Hemoglobin 34.6 PG (26-34); Mean Corpuscular Volume 101.5 fL (80-100); Monocytes Absolute Auto 1000 /uL (0-900); Monocytes Percent Auto 12.1 % (3-14); Neutrophils Absolute Auto 5700 /uL (1500-7000); Platelet Count 137 X10^3/uL (150-400); Red Blood Cell Count 3.77 X10^6/uL (4.5-5.9); Red Cell Distribution Width 14.5 % (11.6-14.8); White Blood Cell Count 8.4 X10^3/uL (4.5-11.0)
[2024-03-05 05:46] LABS: BUN Creatinine Ratio 24.4 (6-22); Blood Urea Nitrogen 19 mg/dL (9-20); Calcium 9.2 mg/dL (8.4-10.2); Carbon Dioxide 23 mmol/L (22-32); Chloride 107 mmol/L (98-107); Estimated Glomerular Filt Rate > 60 mL/min (>60); Glucose 116 mg/dL (80-110); HEMOLYSIS 21 (0-50); Potassium 4.3 mmol/L (3.4-5.1); Sodium 135 mmol/L (137-145)
--- NOTE | 2024-03-05 06:49 | PM.HP.1 ---
History of Present Illness History of Present Illness Chief complaint: unable to urinate, blood in urine Narrative: 79 year-old male with past medical history of a fib on Eliquis, hypertension, hyperlipidemia and history of prostate cancer status post radiation treatment a little more than two years ago presents with inability to urinate and gross hematuria. Note per the patient's report, since yesterday, the patient has difficulty urinating and when he could there was some blood noted in this urine. The patient did have some discomfort in his bladder due to the fact that he unable to urinate. Otherwise the patient denies any dysuria, fever, chills, chest pain, shortness of breath, nausea, vomiting or diarrhea. In our emergency room, the patient was hemodynamically stable. Hemoglobin was 13.9. Urinary catheter was placed and red dark urine was produced along with blood clots. Urology was consulted and recommended that we admit the patient for continues CBI.? The Urologist will decide if? he needs to take the patient to OR for further treatment if the hematuria does not improve.UA not suggestive of UTI but the patient did receive a dose of Keflex in ER. [facility] Medical History Elevated PSA Gout Hyperlipidemia Hypertension Surgical History Aortic valve replaced History of left hip replacement Family History Father Lung cancer Tobacco use disorder, severe, in controlled environment, dependence Mother Dementia Social History household members: spouse Smoking Status: Never smoker alcohol intake: current substance use type: does not use Meds Home Medications and Allergies Home Medications Medication Instructions Recorded Confirmed Type OMEGA-3/DHA/EPA/FISH OIL ([place]-3 3,000 units PO DAILY ##0 12/05/10 03/04/24 History Fish Oil Softgel) allopurinol 300 mg tablet 300 mg PO QDAY ##0 12/05/10 03/04/24 History losartan 50 mg tablet (Cozaar) 100 mg PO BEDTIME ##0 12/05/10 03/04/24 History aspirin 325 mg PO DAILY 09/22/20 11/20/24 History atorvastatin 40 mg PO BEDTIME 01/05/20 03/04/24 History cholecalciferol (vitamin D3) 50 50 mcg PO DAILY 01/05/20 03/04/24 History mcg (2,000 unit) capsule (Vitamin D3) cyanocobalamin (vitamin B-12) 5,000 mcg PO DAILY 01/05/20 03/04/24 History 5,000 mcg capsule Allergies Allergy/AdvReac Type Severity Reaction Status Date / Time No Known Drug Allergies Allergy Verified 03/04/24 09:16 Review of Systems Review of Systems ROS: Yes All systems reviewed with the patient and are negative except as otherwise documented Exam Vital Signs (past 8 hours): - 03/04/24 23:00 Oxygen Delivery Method Room Air Oxygen Delivery Method Room Air Oxygen Flow Rate 0 Narrative Exam Narrative: GENERAL: The patient is not in any acute distressed. Awake and alert. HEENT: Nonicteric sclerae, PERRLA, EOMI. Oropharynx clear. Moist mucous membranes. Conjunctivae appear well perfused. HEART: Regular rate and rhythm without murmurs. No lower extremities edema. LUNGS: Clear to auscultation bilaterally. No wheezing, crackles or rhonchi ABDOMEN: Soft, positive bowel sounds, nontender. SKIN: No rash, no excessive bruising, petechiae, or purpura. NEUROLOGIC: AxO x 3. Cranial nerves II-XII intact without motor/sensory deficit. Objective Labs 03/05/24 05:18 03/05/24 05:18 Labs: Laboratory Results - last 24 hr 03/04/24 03/04/24 03/04/24 09:57 10:31 19:04 WBC 6.5 7.7 RBC 4.11 L 4.06 L Hgb 14.1 13.9 Hct 41.9 41.5 MCV 102.0 H 102.0 H MCH 34.3 H 34.2 H MCHC 33.7 33.5 RDW 14.7 14.5 Plt Count 145 L 148 L Neut % (Auto) 73.9 63.8 Lymph % (Auto) 15.7 L 23.2 L [place] % (Auto) 9.3 11.3 Eos % (Auto) 0.3 L 0.8 L Baso % (Auto) 0.8 0.9 Neut # (Auto) 4800 4900 Lymph # (Auto) 1000 L 1800 [place] # (Auto) 600 900 Eos # (Auto) 0 100 Baso # (Auto) 100 100 PT 14.1 H INR 1.2 APTT 41 H Sodium 137 Potassium 4.8 Chloride 106 Carbon Dioxide 21 L BUN 20 Creatinine 1.11 Estimated GFR > 60 BUN/Creatinine Ratio 18.0 Glucose 112 H Calcium 9.6 Total Bilirubin 0.8 AST 45 ALT 36 Alkaline Phosphatase 169 H Total Protein 8.3 H Albumin 4.5 Globulin 3.8 Albumin/Globulin Ratio 1.2 Urine Color Red Urine Appearance Turbid Urine pH 6.0 Ur Specific [place] 1.020 Urine Protein 3+ H Urine Glucose (UA) Negative Urine Ketones Negative Urine Occult Blood 3+ H Urine Nitrate Positive H Urine Bilirubin 1+ H Ur Bilirubin Confirm Negative Urine Urobilinogen 0.2 Ur Leukocyte Esterase Negative Urine RBC >100/hpf H Urine WBC None seen Ur Squamous Epith Cells None seen Urine Bacteria None seen Ur Culture Indicated? Specimen cultured Vol Urine Centrifuged 10ml (spun) 03/05/24 05:18 WBC 8.4 RBC 3.77 L Hgb 13.0 L Hct 38.3 L MCV 101.5 H MCH 34.6 H MCHC 34.1 RDW 14.5 Plt Count 137 L Neut % (Auto) 67.0 Lymph % (Auto) 18.7 L [place] % (Auto) 12.1 Eos % (Auto) 1.4 L Baso % (Auto) 0.8 Neut # (Auto) 5700 Lymph # (Auto) 1600 [place] # (Auto) 1000 H Eos # (Auto) 100 Baso # (Auto) 100 PT INR APTT Sodium 135 L Potassium 4.3 Chloride 107 Carbon Dioxide 23 BUN 19 Creatinine 0.78 Estimated GFR > 60 BUN/Creatinine Ratio 24.4 H Glucose 116 H Calcium 9.2 Total Bilirubin AST ALT Alkaline Phosphatase Total Protein Albumin Globulin Albumin/Globulin Ratio Urine Color Urine Appearance Urine pH Ur Specific [place] Urine Protein Urine Glucose (UA) Urine Ketones Urine Occult Blood Urine Nitrate Urine Bilirubin Ur Bilirubin Confirm Urine Urobilinogen Ur Leukocyte Esterase Urine RBC Urine WBC Ur Squamous Epith Cells Urine Bacteria Ur Culture Indicated? Vol Urine Centrifuged Assessment & Plan Assessment & Plan narrative: Gross hematuria and blood clots. Admit the patient to medical observation with telemetry. Note patient does have a marina catheter and we will continue CBI overnight. Appreciates further inputs and management per urology. Note Hb is stable and 13.9.? Hold Eliquis for now. Afib.? Resume home medications but hold Eliquis due to above. Hypertension monitor blood pressure and resume home medication accordingly.? DVT PPx.? SCDs for now due to hematuria Code status full code Disposition likely Home in 1 to 2 days. Time-Based Coding :: [TOTAL MINUTES] spent with patient and on the chart (including review of chart, obtaining history, exam, reviewing outside data, placing orders, documenting exam and treatment plan, and counseling patient) on [DATE]. Quality VTE Deep Vein Thrombosis/Pulmonary Embolism Present on Admission: No
--- NOTE | 2024-03-05 07:27 | PM.HP.1 ---
History of Present Illness History of Present Illness Chief complaint: unable to urinate, blood in urine Narrative: From night doctor: 79 year-old male with past medical history of a fib on Eliquis, hypertension, hyperlipidemia and history of prostate cancer status post radiation treatment a little more than two years ago presents with inability to urinate and gross hematuria. Note per the patient's report, since yesterday, the patient has difficulty urinating and when he could there was some blood noted in this urine. The patient did have some discomfort in his bladder due to the fact that he unable to urinate. Otherwise the patient denies any dysuria, fever, chills, chest pain, shortness of breath, nausea, vomiting or diarrhea. In our emergency room, the patient was hemodynamically stable. Hemoglobin was 13.9. Urinary catheter was placed and red dark urine was produced along with blood clots. Urology was consulted and recommended that we admit the patient for continues CBI.? The Urologist will decide if? he needs to take the patient to OR for further treatment if the hematuria does not improve.UA not suggestive of UTI but the patient did receive a dose of Keflex in ER. Additional information: He feels well this morning. He was been on continuous bladder she overnight and has improvement in the amount of blood seen in his Marina catheter bag. Has a history of extensive radiation therapy for his previous prostate cancer. He denies any fevers, chills, or abdominal pain. Urology saw him this morning, and we will return mid morning to make a decision on cystoscopy or ongoing conservative management. FOR[facility]LY [facility] Medical History Elevated PSA Gout Hyperlipidemia Hypertension Surgical History Aortic valve replaced History of left hip replacement Family History Father Lung cancer Tobacco use disorder, severe, in controlled environment, dependence Mother Dementia Social History household members: spouse Smoking Status: Never smoker alcohol intake: current substance use type: does not use Meds Home Medications and Allergies Home Medications Medication Instructions Recorded Confirmed Type OMEGA-3/DHA/EPA/FISH OIL ([place]-3 3,000 units PO DAILY ##0 12/05/10 03/04/24 History Fish Oil Softgel) allopurinol 300 mg tablet 300 mg PO QDAY ##0 12/05/10 03/04/24 History losartan 50 mg tablet (Cozaar) 100 mg PO BEDTIME ##0 12/05/10 03/04/24 History aspirin 325 mg PO DAILY 01/05/20 03/04/24 History atorvastatin 40 mg PO BEDTIME 01/05/20 03/04/24 History cholecalciferol (vitamin D3) 50 50 mcg PO DAILY 01/05/20 03/04/24 History mcg (2,000 unit) capsule (Vitamin D3) cyanocobalamin (vitamin B-12) 5,000 mcg PO DAILY 01/05/20 03/04/24 History 5,000 mcg capsule Allergies Allergy/AdvReac Type Severity Reaction Status Date / Time No Known Drug Allergies Allergy Verified 03/04/24 09:16 Review of Systems Review of Systems Narrative: All else reviewed and otherwise unremarkable except as noted in the history and physical. Exam Vital Signs (past 8 hours): Oxygen Delivery Method Room Air Oxygen Flow Rate 0 Narrative Exam Narrative: NAD, alert and oriented, fluent speech, calm. Normocephalic skull, EOMI, anicteric sclera, symmetric pupils. Oropharynx unremarkable, no droop. Neck supple, midline trachea, no adenopathy. Lungs clear, normal rate and effort. Heart regular, no murmur gallop or rub. Abdomen is soft, non distended and non tender. Extremities are free of edema. Skin is free of rash or lesions. Joints are not swollen or deformed. Judgment appears to be normal. Marina catheter in place with a Marina bag which has relatively intermediate colored red urine. CBI is also hooked up. Objective Labs 03/05/24 05:18 03/05/24 05:18 Labs: Laboratory Results - last 24 hr 03/04/24 03/04/24 03/04/24 09:57 10:31 19:04 WBC 6.5 7.7 RBC 4.11 L 4.06 L Hgb 14.1 13.9 Hct 41.9 41.5 MCV 102.0 H 102.0 H MCH 34.3 H 34.2 H MCHC 33.7 33.5 RDW 14.7 14.5 Plt Count 145 L 148 L Neut % (Auto) 73.9 63.8 Lymph % (Auto) 15.7 L 23.2 L [place] % (Auto) 9.3 11.3 Eos % (Auto) 0.3 L 0.8 L Baso % (Auto) 0.8 0.9 Neut # (Auto) 4800 4900 Lymph # (Auto) 1000 L 1800 [place] # (Auto) 600 900 Eos # (Auto) 0 100 Baso # (Auto) 100 100 PT 14.1 H INR 1.2 APTT 41 H Sodium 137 Potassium 4.8 Chloride 106 Carbon Dioxide 21 L BUN 20 Creatinine 1.11 Estimated GFR > 60 BUN/Creatinine Ratio 18.0 Glucose 112 H Calcium 9.6 Total Bilirubin 0.8 AST 45 ALT 36 Alkaline Phosphatase 169 H Total Protein 8.3 H Albumin 4.5 Globulin 3.8 Albumin/Globulin Ratio 1.2 Urine Color Red Urine Appearance Turbid Urine pH 6.0 Ur Specific [place] 1.020 Urine Protein 3+ H Urine Glucose (UA) Negative Urine Ketones Negative Urine Occult Blood 3+ H Urine Nitrate Positive H Urine Bilirubin 1+ H Ur Bilirubin Confirm Negative Urine Urobilinogen 0.2 Ur Leukocyte Esterase Negative Urine RBC >100/hpf H Urine WBC None seen Ur Squamous Epith Cells None seen Urine Bacteria None seen Ur Culture Indicated? Specimen cultured Vol Urine Centrifuged 10ml (spun) 03/05/24 05:18 WBC 8.4 RBC 3.77 L Hgb 13.0 L Hct 38.3 L MCV 101.5 H MCH 34.6 H MCHC 34.1 RDW 14.5 Plt Count 137 L Neut % (Auto) 67.0 Lymph % (Auto) 18.7 L [place] % (Auto) 12.1 Eos % (Auto) 1.4 L Baso % (Auto) 0.8 Neut # (Auto) 5700 Lymph # (Auto) 1600 [place] # (Auto) 1000 H Eos # (Auto) 100 Baso # (Auto) 100 PT INR APTT Sodium 135 L Potassium 4.3 Chloride 107 Carbon Dioxide 23 BUN 19 Creatinine 0.78 Estimated GFR > 60 BUN/Creatinine Ratio 24.4 H Glucose 116 H Calcium 9.2 Total Bilirubin AST ALT Alkaline Phosphatase Total Protein Albumin Globulin Albumin/Globulin Ratio Urine Color Urine Appearance Urine pH Ur Specific [place] Urine Protein Urine Glucose (UA) Urine Ketones Urine Occult Blood Urine Nitrate Urine Bilirubin Ur Bilirubin Confirm Urine Urobilinogen Ur Leukocyte Esterase Urine RBC Urine WBC Ur Squamous Epith Cells Urine Bacteria Ur Culture Indicated? Vol Urine Centrifuged Assessment & Plan Assessment & Plan narrative: 1. Gross hematuria and history of radiation to the pelvis. Present on admission and active. - Admit the patient to medical observation with telemetry. Note patient does have a marina catheter and we will continue CBI overnight. Appreciates further inputs and management per urology. Note Hb is stable and 13.9.? Hold Eliquis for now. 2. Afib.? Present on admission and stable. - Resume home medications but hold Eliquis due to above. 3. Hypertension. Present on admission and stable. - Monitor blood pressure and resume home medication accordingly.? PLAN: -urology will decide mid morning on cystoscopy versus expected management. -Hold anticoagulation -Monitor blood pressure and heart rate DVT PPx.? SCDs for now due to hematuria Code status full code [id number]: 03/06 Disposition: likely Home in 1 to 2 days. Time-Based Coding :: 35 min spent with patient and on the chart (including review of chart, obtaining history, exam, reviewing outside data, placing orders, documenting exam and treatment plan, and counseling patient) on 03/05. Quality VTE Deep Vein Thrombosis/Pulmonary Embolism Present on Admission: No MIPS - Admit I confirm the patient?s Advance Care Plan is present, Code status is documented, Surrogate decision maker is in patient?s record [If Yes, STOP here]: Yes MIPS - Meds 'Current medications' to include all prescriptions, [id number] products, herbals, cannabis/cannabidiol products, and vitamin/mineral/dietary (nutritional) supplements. I have utilized all available resources to obtain, update, or review the patient?s current medications. [If Yes, STOP here]: Yes
[2024-03-05 08:00] VITALS: BP 116/72; PULSE 57; RESP 16; TEMP 36.4; O2SAT 94
--- NOTE | 2024-03-05 09:30 | P.PN_ITS ---
Subjective Subjective Date Patient Seen: 03/05/24 Time Patient Seen: 08:00 Interval history: 79 y/o M w/ h/o prostate cancer treated w/ XRT more than two years ago who developed clot retention w/in the last 36 hours presented to ER for further evaluation. His marina catheter was removed and a new 24Fr [place] 3-way hematuria catheter was placed. 100cc of clot was manually evacuated from his bladder yesterday evening. He has been NPO since midnight in case he requires a cystoscopy with clot evacuation. Exam Vital Signs (past 8 hours): - 03/05/24 08:00 Temperature 97.5 F L Pulse Rate 57 L Respiratory Rate 16 Blood Pressure 116/72 Pulse Oximetry 94 Oxygen Delivery Method Room Air Oxygen Flow Rate 0 Narrative Exam Narrative: GEN: Alert and oriented X3. No acute distress. Well-nourished. EYES: PERRLA, EOMI. HENT: Moist mucus membranes, no scleral icterus, normal neck ROM. RESP: Unlabored breathing, equal rise and fall of chest bilaterally, no cyanosis appreciated. CV: No peripheral edema, unremarkable heart rate. ABD: Soft, non-tender, non-distended, no palpable masses. : Marina secured. 100 cc of clot manually evacuated from his bladder this morning. CBI clamped. EXT: No edema, clubbing or cyanosis. SKIN: No rashes or lesions. NEURO: No focal neurologic deficits, CN II-XII grossly intact. PSYCH: Cooperative, appropriate mood and affect. Objective Labs 03/05/24 05:18 03/05/24 05:18 Labs: Laboratory Results - last 24 hr 03/04/24 03/04/24 03/04/24 09:57 10:31 19:04 WBC 6.5 7.7 RBC 4.11 L 4.06 L Hgb 14.1 13.9 Hct 41.9 41.5 MCV 102.0 H 102.0 H MCH 34.3 H 34.2 H MCHC 33.7 33.5 RDW 14.7 14.5 Plt Count 145 L 148 L Neut % (Auto) 73.9 63.8 Lymph % (Auto) 15.7 L 23.2 L [place] % (Auto) 9.3 11.3 Eos % (Auto) 0.3 L 0.8 L Baso % (Auto) 0.8 0.9 Neut # (Auto) 4800 4900 Lymph # (Auto) 1000 L 1800 [place] # (Auto) 600 900 Eos # (Auto) 0 100 Baso # (Auto) 100 100 PT 14.1 H INR 1.2 APTT 41 H Sodium 137 Potassium 4.8 Chloride 106 Carbon Dioxide 21 L BUN 20 Creatinine 1.11 Estimated GFR > 60 BUN/Creatinine Ratio 18.0 Glucose 112 H Calcium 9.6 Total Bilirubin 0.8 AST 45 ALT 36 Alkaline Phosphatase 169 H Total Protein 8.3 H Albumin 4.5 Globulin 3.8 Albumin/Globulin Ratio 1.2 Urine Color Red Urine Appearance Turbid Urine pH 6.0 Ur Specific [place] 1.020 Urine Protein 3+ H Urine Glucose (UA) Negative Urine Ketones Negative Urine Occult Blood 3+ H Urine Nitrate Positive H Urine Bilirubin 1+ H Ur Bilirubin Confirm Negative Urine Urobilinogen 0.2 Ur Leukocyte Esterase Negative Urine RBC >100/hpf H Urine WBC None seen Ur Squamous Epith Cells None seen Urine Bacteria None seen Ur Culture Indicated? Specimen cultured Vol Urine Centrifuged 10ml (spun) 03/05/24 05:18 WBC 8.4 RBC 3.77 L Hgb 13.0 L Hct 38.3 L MCV 101.5 H MCH 34.6 H MCHC 34.1 RDW 14.5 Plt Count 137 L Neut % (Auto) 67.0 Lymph % (Auto) 18.7 L [place] % (Auto) 12.1 Eos % (Auto) 1.4 L Baso % (Auto) 0.8 Neut # (Auto) 5700 Lymph # (Auto) 1600 [place] # (Auto) 1000 H Eos # (Auto) 100 Baso # (Auto) 100 PT INR APTT Sodium 135 L Potassium 4.3 Chloride 107 Carbon Dioxide 23 BUN 19 Creatinine 0.78 Estimated GFR > 60 BUN/Creatinine Ratio 24.4 H Glucose 116 H Calcium 9.2 Total Bilirubin AST ALT Alkaline Phosphatase Total Protein Albumin Globulin Albumin/Globulin Ratio Urine Color Urine Appearance Urine pH Ur Specific [place] Urine Protein Urine Glucose (UA) Urine Ketones Urine Occult Blood Urine Nitrate Urine Bilirubin Ur Bilirubin Confirm Urine Urobilinogen Ur Leukocyte Esterase Urine RBC Urine WBC Ur Squamous Epith Cells Urine Bacteria Ur Culture Indicated? Vol Urine Centrifuged [facility] Medical History Elevated PSA Gout Hyperlipidemia Hypertension Surgical History Aortic valve replaced History of left hip replacement Family History Father Lung cancer Tobacco use disorder, severe, in controlled environment, dependence Mother Dementia Social History household members: spouse Smoking Status: Never smoker alcohol intake: current substance use type: does not use Assessment & Plan Assessment and plan (1) Hematuria: Qualifiers: Hematuria type: unspecified type Qualified Code(s): R31.9 - Hematuria, unspecified Status: Acute Plan: 79 y/o M w/ h/o prostate cancer treated w/ XRT more than two years ago who developed clot retention w/in the last 36 hours presented to ER for further evaluation. His marina catheter was removed and a new 24Fr [place] 3-way hematuria catheter was placed. 100cc of clot was manually evacuated from his bladder yesterday evening and another 100cc of clot was manually evacuated from his bladder this morning. Discussed that his CT Abd/Pel was notable for what appears to be clot w/in his bladder, albeit not a large amount. - CBI to remain clamped for now - Remain NPO for now - Will re-evaluate this morning/afternoon and decide if he requires a cystoscopy, clot evacuation and bladder fulguration vs discharging home with his catheter in place and returning early next week for a voiding trial - Please hold his blood thinners if medically acceptable - Appreciate assistance of the hospitalist (2) Acute urinary retention: Status: Acute Plan: Please see above Time-Based Coding :: [TOTAL MINUTES] spent with patient and on the chart (including review of chart, obtaining history, exam, reviewing outside data, placing orders, documenting exam and treatment plan, and counseling patient) on [DATE]. Quality VTE Deep Vein Thrombosis/Pulmonary Embolism Present on Admission: No IH PROFEE Charge codes Subsequent inpatient/observation care: [id number]
[2024-03-05] MEDS: SODIUM CHLORIDE 0.9% 1,000 ML 100 ML IV (09:39)
[2024-03-05 12:00] VITALS: BP 118/66; PULSE 70; RESP 16; TEMP 36.4; O2SAT 96
--- NOTE | 2024-03-05 13:06 | PM.DS.1 ---
History of Present Illness History of Present Illness Chief complaint: unable to urinate, blood in urine Narrative: From night doctor: 79 year-old male with past medical history of a fib on Eliquis, hypertension, hyperlipidemia and history of prostate cancer status post radiation treatment a little more than two years ago presents with inability to urinate and gross hematuria. Note per the patient's report, since yesterday, the patient has difficulty urinating and when he could there was some blood noted in this urine. The patient did have some discomfort in his bladder due to the fact that he unable to urinate. Otherwise the patient denies any dysuria, fever, chills, chest pain, shortness of breath, nausea, vomiting or diarrhea. In our emergency room, the patient was hemodynamically stable. Hemoglobin was 13.9. Urinary catheter was placed and red dark urine was produced along with blood clots. Urology was consulted and recommended that we admit the patient for continues CBI.? The Urologist will decide if? he needs to take the patient to OR for further treatment if the hematuria does not improve.UA not suggestive of UTI but the patient did receive a dose of Keflex in ER. Additional information: He feels well this morning. He was been on continuous bladder she overnight and has improvement in the amount of blood seen in his Ferris catheter bag. Has a history of extensive radiation therapy for his previous prostate cancer. He denies any fevers, chills, or abdominal pain. Urology saw him this morning, and we will return mid morning to make a decision on cystoscopy or ongoing conservative management. He notes a history of radiation treatments for prostate cancer. He was doing well this morning and was seen by Urology prior to my visit. CBI has been turned off and they will return mid day to reassess his need for intervention versus symptomatic management. Apixaban was stopped upon presentation. Discharge Providers Provider Date of admission: 03/04/24 21:21 Discharge Date: 03/05/24 Primary care physician: Bala Matt MD Discharge provider: Jose Quinteros MD Summary Hospital Course Discharge Diagnosis: 1. Gross hematuria and history of radiation to the pelvis. Present on admission and Improved. 2. Afib.? Present on admission and stable. 3. Hypertension. Present on admission and stable. 4. Cirrhotic liver morphology. On CT scan. Present on admission and active. 5. 7 mm left lower lobe lung nodule. On CT scan. Present on admission and active. 6. Prostate cancer, stable. Hospital Course: The patient was admitted for hematuria and apixaban was stopped. He underwent CBI with good improvement of his symptoms. CBI was stopped in the morning of discharge and he was seen by Urology. He was felt to be stable for discharge home with a Ferris in place and we will hold his apixaban for the next 5 days until follow up with Urology next Saturday. CT scan was obtained with incidental finding of a left lower lobe nodule on CT scan as well as cirrhotic liver morphology. Status at Discharge Cognitive/behavioral status at discharge: oriented Functional status at discharge: independent ambulation Overall status at discharge: patient is back to baseline Time Spent with Patient Time spent: Greater than 30 minutes Exam Vital Signs (past 8 hours): - 03/05/24 08:00 03/05/24 12:00 Temperature 97.5 F L 97.6 F Pulse Rate 57 L 70 Respiratory Rate 16 16 Blood Pressure 116/72 118/66 Pulse Oximetry 94 96 Oxygen Delivery Method Room Air Oxygen Flow Rate 0 Narrative Exam Narrative: NAD, alert and oriented. Fluent speech. Lungs are clear, normal rate and effort. Heart is regular, no murmur gallop or rub. Abdomen is soft, non distended. Extremities are free of edema. Ferris in place. Objective Imaging CT scan - abdomen: Radiologist's impression: There is a Ferris catheter balloon and hyperdense material within the lumen. Air suggests recent catheterization. Nonspecific bilateral perinephric and periureteric inflammatory changes without evidence of obstructive uropathy, stone, or abnormal enhancement. Correlate with UA to rule out infection. Cirrhotic liver morphology. 7 mm left lower lobe lung nodule. Recommend follow-up chest CT in 6-12 months to document stability. Labs 03/05/24 05:18 03/05/24 05:18 Labs: Laboratory Results - last 24 hr 03/04/24 03/05/24 19:04 05:18 WBC 7.7 8.4 RBC 4.06 L 3.77 L Hgb 13.9 13.0 L Hct 41.5 38.3 L MCV 102.0 H 101.5 H MCH 34.2 H 34.6 H MCHC 33.5 34.1 RDW 14.5 14.5 Plt Count 148 L 137 L Neut % (Auto) 63.8 67.0 Lymph % (Auto) 23.2 L 18.7 L [place] % (Auto) 11.3 12.1 Eos % (Auto) 0.8 L 1.4 L Baso % (Auto) 0.9 0.8 Neut # (Auto) 4900 5700 Lymph # (Auto) 1800 1600 [place] # (Auto) 900 1000 H Eos # (Auto) 100 100 Baso # (Auto) 100 100 Sodium 135 L Potassium 4.3 Chloride 107 Carbon Dioxide 23 BUN 19 Creatinine 0.78 Estimated GFR > 60 BUN/Creatinine Ratio 24.4 H Glucose 116 H Calcium 9.2 PFSH Medical History Elevated PSA Gout Hyperlipidemia Hypertension Surgical History Aortic valve replaced History of left hip replacement Family History Father Lung cancer Tobacco use disorder, severe, in controlled environment, dependence Mother Dementia Social History household members: spouse Smoking Status: Never smoker alcohol intake: current substance use type: does not use Discharge Assessment & Plan Assessment and Plan Assessment: 1. Gross hematuria and history of radiation to the pelvis. Present on admission and Improved. 2. Afib.? Present on admission and stable. 3. Hypertension. Present on admission and stable. 4. Cirrhotic liver morphology. On CT scan. Present on admission and active. 5. 7 mm left lower lobe lung nodule. On CT scan. Present on admission and active. 6. Prostate cancer, stable. Plan of Treatment: Discharge home Hold apixaban until follow up next Saturday, about 5 days. Urology follow up next Saturday. -Abnormal lung nodule on CT scan, recommend follow up CT scan in 6-9 months. Discharge Plan Discharge Plan Patient Disposition: Home Provider Discharge Comment: Stable for discharge home with a 5 day hold on apixaban and follow up with Urology in 5 days. You can expect to have burning with urination for the first few days after your catheter is removed, this is normal and to be expected after your procedure. You may purchase an OTC medication (Phenazopyridine or Azo), a medication that can help with this burning and discomfort. This medication may change the color of your urine orange, however, this will resolve once you stop taking the medication. It is normal to have blood in your urine. You may even pass large blood clots for the next several weeks. Expect to have periods of passage of blood clots and red urine which will then resolve after a few days and return to clear yellow urine. This is normal and part of the healing process of your bladder. As long as you are able to completely empty your bladder, it is okay. If you feel that you have to urinate and you are unable to empty your bladder, please go to the closest emergency room or contact our clinic for evaluation. As long as the catheter is in place, you may have intermittent bouts of blood in the urine with passage of blood clots. As long as your catheter continues to drain, this is nothing to worry about. You may also notice leakage of urine around the catheter, this is normal and to be expected. As long as the majority of the urine is flowing through the catheter it is okay. Please return to the Urology clinic on 09 Mar 2024 at 0830 to have your catheter removed (your appointment is scheduled for 0845). You will then return to the Urology clinic later that afternoon at 220 to ensure you are able to urinate without difficulty. Discharge orders & Medications Prescriptions: Continued losartan [Cozaar] 50 MG tablet 100 mg PO BEDTIME Qty: 0 allopurinol 300 MG tablet 300 mg PO QDAY Qty: 0 OMEGA-3/DHA/EPA/FISH OIL ([place]-3 Fish Oil Softgel) 3,000 units PO DAILY Qty: 0 atorvastatin 40 mg PO BEDTIME aspirin 325 mg PO DAILY cholecalciferol (vitamin D3) [Vitamin D3] 50 mcg (2,000 unit) Capsule 50 mcg PO DAILY cyanocobalamin (vitamin B-12) 5,000 mcg Capsule 5,000 mcg PO DAILY Medication counseling provided by Pharmacist: No Follow up/Referrals: Livan Miller DO [Physician] - Bala Matt MD [Primary Care Provider] - Discharge Health Status Multidrug resistant organism: No MDRO Diet/Activity/Treatments Diet: Regular Visit Report/Discharge Packet Instructions: How to Care for Your Ferris Catheter -- Male, DI for Urinary Retention in Men Stand Alone Forms: Patient Portal/API Discharge Data Primary Care Provider: Bala Matt Attending Provider: Deo Ramos Admit Date/Time: 03/04/24 21:21 Quality VTE Deep Vein Thrombosis/Pulmonary Embolism Present on Admission: No
--- NOTE | 2024-03-05 13:33 | CM.DANOTE ---
Initial DCP Assessment Visit Note Reviewed EMR and team rounds for status updates. Met with pt at bedside and introduced self and role, pt was found to be alert/oriented, resting quietly in bed, and in no apparent discomfort/distress. Pt resides independently in his own home with spouse in [place]. His will be transporting him back home later today. Pt declines any CM assistance/resource needs at this time. Payor: Vanita Carbajal PCP: Dr. Matt Pt is a 79 year-old M who presented to the ED last evening with his with c/o urinary frequency, hematuria, and bladder distention. He had radiation for prostate cancer 4-years ago. He has never had any issues until about 2-3 weeks ago when he geban noticing some blood clots in his urine. Bladder irrigation was started, and Dr. Miller was consulted from Urology. He came in to the ER and placed a hematuria catheter, and pt was made NPO just in case he would need a cystoscopy in the am (today). Pt improved overnight, and has been medically discharged to return home this afternoon. He will f/u OP with Urology in the next few days post d/c. Discharge Planning/Care Management CM Discharge Assessment Start: 03/05/24 13:31 Freq: Status: Active Protocol: Document 03/05/24 13:32 DPL (Rec: 03/05/24 13:33 DPL [id number]) Discharge Planning Assessment Assigned Marble Installer [id number] [place] Advance Directives? No Advance Directives on File No History Provided By Patient,Medical Record Has Patient been admitted in last 30 No days? Prior Living Arrangements House Household Members spouse Type of transporation used prior to Drives own vehicle admit Independent with ADL's Yes Is patient alert and oriented? Yes Comment N/A Caregiver for Another No Comment No identified home d/c needs identified at this time. Pt will f/u with Dr. Miller in OP Urology post-discharge. Barriers to Discharge No Discharge Plan Home Transportation Arrangement Spouse can likely provide transport at d/c. Referrals Initiated None needed Whiteboard Updated in Patient Room with Yes name and ext. # of Marble Installer Review Status In Process Please Provide Date Initial DC 03/05/24 Assessment Was Performed
--- NOTE | 2024-03-05 14:50 | PC.NURSE ---
Day shift: Discharge education gone over with patient and patient's . Extensive return demonstration education of Ferris cathetar care, leg bag, emptying, s/sx to watch for, hydration, etc. PIV removed prior to discharge. All belongings with patient. MAK Lau escorted patient to exit via wheelchair where plans to take him home.
== END 2024-03-05 15:10 | disposition home or self-care (01) ==
LOC: ED 21:17 → AC 21:21
PROVIDERS: Emergency Medicine; Admitting Provider Internal Medicine; Emergency Provider Emergency Medicine; PCP Internal Medicine; Referring Provider Emergency Medicine; Visit Provider Internal Medicine
DX: R31.9 Hematuria, unspecified (principal); R33.8 Other retention of urine; Z85.46 Personal history of malignant neoplasm of prostate; I48.91 Unspecified atrial fibrillation; Z79.01 Long term (current) use of anticoagulants; I10 Essential (primary) hypertension; R91.1 Solitary pulmonary nodule; K74.60 Unspecified cirrhosis of liver
CPT/HCPCS: 36415; 51798; 74177; 80048; 80053; 81001; 85025; 85610; 85730; 87086; 93005; 96361; 96374; 96375; 99284; G0378; J1171; J2250; Q9967

== ENCOUNTER → 2024-03-09 14:33 | Outpatient (CLI) | payer OTHER, SELFPAY ==
[2024-03-04 22:07] VITALS: BMI 31.8
== END ==
PROVIDERS: PCP Internal Medicine; Visit Provider Urology
DX: R31.9 Hematuria, unspecified (principal); R33.8 Other retention of urine
CPT/HCPCS: 87086

== ENCOUNTER 2024-03-11 06:23 | Emergency (ER) | payer OTHER, SELFPAY ==
[2024-03-04 22:07] VITALS: BMI 31.8
[2024-03-11] VITALS (16 sets, daily range): BP systolic 120–179; BP diastolic 62–82; PULSE 46–88; RESP 20; TEMP 36.9; O2SAT 93–97; BMI 31.4
--- NOTE | 2024-03-11 06:30 | ED.MALEGU ---
HPI - Male Genitourinary <Ellen C MateolindenDO - Last Filed: 03/15/24 08:13> General Chief complaint: Urogenital-Male Stated complaint: can't urinate, blood clots in pee Time Seen by Provider: 03/11/24 06:30 Source: patient, RN notes reviewed and old records reviewed Mode of arrival: Ambulatory Limitations: no limitations History of Present Illness HPI Narrative: 79-year-old male history of atrial fibrillation on apixaban, hypertension, dyslipidemia with history of prostate cancer 4 years ago with radiation therapy. Patient presents with concern for urinary retention. Patient was seen here on 03/04/2024 for difficulty with urination, frequency and hematuria during patient's had bladder scan had 750 mL and had continuous bladder irrigation was admitted overnight and followed up with urology outpatient for removal of his catheter. States he has had little bit of persistent hematuria but been very small amounts and small clots. Last urine output was last night at about 10:00 p.m. has not been able to urinate since. He states bladder feels very full he has quite a bit of discomfort. Denies fevers or chills. No nausea or vomiting. No flank pain per reported. Denies any constipation or diarrhea. States he has been stooling regularly. No reported drug allergies. Related Data Home Medications Medication Instructions Recorded Confirmed OMEGA-3/DHA/EPA/FISH OIL ([place]-3 3,000 units PO DAILY ##0 12/05/10 03/04/24 Fish Oil Softgel) allopurinol 300 mg tablet 300 mg PO QDAY ##0 12/05/10 03/09/24 losartan 50 mg tablet (Cozaar) 100 mg PO BEDTIME ##0 12/05/10 03/09/24 atorvastatin 40 mg PO BEDTIME 01/05/20 03/09/24 cholecalciferol (vitamin D3) 50 50 mcg PO DAILY 01/05/20 03/04/24 mcg (2,000 unit) capsule (Vitamin D3) cyanocobalamin (vitamin B-12) 5,000 mcg PO DAILY 01/05/20 03/04/24 5,000 mcg capsule apixaban 5 mg tablet (Eliquis) 5 mg PO BID 03/09/24 03/09/24 aspirin 81 mg tablet,delayed 81 mg PO DAILY 03/09/24 release atorvastatin 80 mg tablet 80 mg PO DAILY 03/09/24 03/09/24 potassium chloride 20 mEq 20 meq PO DAILY 03/09/24 03/09/24 tablet,extended release tamsulosin 0.4 mg capsule 0.4 mg PO DAILY 03/09/24 03/09/24 Previous Rx's Medication Instructions Recorded cefdinir 300 mg capsule 300 mg PO BID 7 days #14 caps 03/11/24 Allergies Allergy/AdvReac Type Severity Reaction Status Date / Time No Known Drug Allergies Allergy Verified 03/09/24 14:17 Review of Systems <Ellen Almanzar DO - Last Filed: 03/15/24 08:13> Review of Systems ROS Unobtainable: All systems reviewed & are unremarkable except as noted in HPI and below Patient History <Ellen Almanzar DO - Last Filed: 03/15/24 08:13> Medical History Elevated PSA Gout Hyperlipidemia Hypertension Surgical History Aortic valve replaced History of left hip replacement Family History Father Lung cancer Tobacco use disorder, severe, in controlled environment, dependence Mother Dementia Social History household members: spouse Smoking Status: Never smoker alcohol intake: current substance use type: does not use Smoking Status: Never smoker alcohol intake frequency: 0-2 drinks per day Substance Use Type: does not use Exam <Ellen Almanzar DO - Last Filed: 03/15/24 08:13> Narrative Exam Narrative: GENERAL: Alert and oriented x three, P miss male in mild distress. HEENT: Head normocephalic, atraumatic, EOMI, pupils reactive, face symmetric, moist mucous membranes NECK: Supple, full range of motion CARDIOVASCULAR: Regular rate and rhythm without murmurs, rubs or gallops. RESPIRATORY: Breath sounds equal bilaterally, no wheezes rales or rhonchi. ABDOMEN: Soft, nontender. Normoactive bowel sounds all 4 quadrants. No guarding or rebound, rigidity, no mass, patient has suprapubic. : No CVA tenderness EXTREMITIES: Normal range of motion, no clubbing or edema. Neurovascularly intact NEUROLOGICAL: Cranial nerves II through XII grossly intact. Moving all extremities SKIN: Warm, dry, no petechiae, no rashes or lesions. Initial Vital Signs Initial Vital Signs: Vital Signs Blood Pressure 137/62 03/11/24 06:29 <Bao Iqbal MD - Last Filed: 03/11/24 19:19> Initial Vital Signs Initial Vital Signs: Vital Signs Blood Pressure 137/62 03/11/24 06:29 Course <Ellen Almanzar DO - Last Filed: 03/15/24 08:13> Orders Ordered: Discontinued Medications Cefdinir (Cefdinir 300 Mg Capsule) 300 mg PO NOW ONE Stop: 03/11/24 12:51 Last Admin: 03/11/24 13:06 Dose: 300 mg Documented By: KALANI Glucagon (Glucagon,Human Recombinant 1 Mg/Ml Vial) 1 mg IV NOW ONE Stop: 03/11/24 10:07 Hydromorphone HCl (Hydromorphone 0.5 Mg Inj) 0.5 mg IV NOW ONE Stop: 03/11/24 12:25 Last Admin: 03/11/24 12:26 Dose: 0.5 mg Documented By: KALANI Lidocaine HCl (Lidocaine 2% (Glydo) 6 Ml Gel) 6 ml TOP NOW ONE Stop: 03/11/24 12:25 Last Admin: 03/11/24 12:27 Dose: 6 ml Documented By: KALANI Vital Signs Vital signs: Vital Signs - 8 hr 03/11/24 12:28 03/11/24 12:30 03/11/24 13:00 Pulse Rate 55 L 46 L 50 L Blood Pressure Pulse Oximetry 97 97 94 03/11/24 13:11 03/11/24 13:11 03/11/24 15:31 Pulse Rate 48 L Blood Pressure 153/72 H 138/79 Pulse Oximetry 96 03/11/24 15:31 Pulse Rate 70 Blood Pressure Pulse Oximetry 97 <Bao Iqbal MD - Last Filed: 03/11/24 19:19> Orders Ordered: Discontinued Medications Cefdinir (Cefdinir 300 Mg Capsule) 300 mg PO NOW ONE Stop: 03/11/24 12:51 Last Admin: 03/11/24 13:06 Dose: 300 mg Documented By: KALANI Glucagon (Glucagon,Human Recombinant 1 Mg/Ml Vial) 1 mg IV NOW ONE Stop: 03/11/24 10:07 Hydromorphone HCl (Hydromorphone 0.5 Mg Inj) 0.5 mg IV NOW ONE Stop: 03/11/24 12:25 Last Admin: 03/11/24 12:26 Dose: 0.5 mg Documented By: KALANI Lidocaine HCl (Lidocaine 2% (Glydo) 6 Ml Gel) 6 ml TOP NOW ONE Stop: 03/11/24 12:25 Last Admin: 03/11/24 12:27 Dose: 6 ml Documented By: KALANI Vital Signs Vital signs: Vital Signs - 8 hr 03/11/24 12:28 03/11/24 12:30 03/11/24 13:00 Pulse Rate 55 L 46 L 50 L Blood Pressure Pulse Oximetry 97 97 94 03/11/24 13:11 03/11/24 13:11 03/11/24 15:31 Pulse Rate 48 L Blood Pressure 153/72 H 138/79 Pulse Oximetry 96 03/11/24 15:31 Pulse Rate 70 Blood Pressure Pulse Oximetry 97 MDM - Male Genitourinary <Ellen Almanzar DO - Last Filed: 03/15/24 08:13> Lab Data 03/11/24 06:55 03/11/24 06:55 Labs: Lab Results 03/11/24 03/11/24 Range/Units 06:50 06:55 WBC 7.0 (4.5-11.0) X10^3/uL RBC 3.91 L (4.5-5.9) X10^6/uL Hgb 13.3 L (13.5-17.5) g/dL Hct 39.8 L (41-53) % MCV 101.9 H (80-100) fL MCH 34.1 H (26-34) PG MCHC 33.4 (30-36) % RDW 14.5 (11.6-14.8) % Plt Count 160 (150-400) X10^3/uL Neut % (Auto) 72.6 (50-75) % Lymph % (Auto) 14.4 L (25-40) % [place] % (Auto) 11.1 (3-14) % Eos % (Auto) 0.9 L (2-4) % Baso % (Auto) 1.0 (0-2) % Neut # (Auto) 5100 (6785-5893) /uL Lymph # (Auto) 1000 L (0172-5182) /uL [place] # (Auto) 800 (0-900) /uL Eos # (Auto) 100 (0-450) /uL Baso # (Auto) 100 (0-100) /uL Sodium 135 L (137-145) mmol/L Potassium 4.8 (3.4-5.1) mmol/L Chloride 105 (98-107) mmol/L Carbon Dioxide 22 (22-32) mmol/L BUN 21 H (9-20) mg/dL Creatinine 0.91 (0.66-1.25) mg/dL Estimated GFR > 60 (>60) mL/min BUN/Creatinine Ratio 23.1 H (6-22) Glucose 119 H (80-110) mg/dL Calcium 9.4 (8.4-10.2) mg/dL Urine Color [place] Urine Appearance Sl cloudy Urine pH 5.5 (4.5-8.0) Ur Specific [place] 1.020 (1.000-1.035) Urine Protein 1+ H (Negative) Urine Glucose (UA) Negative (Negative) g/dL Urine Ketones Negative (NEGATIVE) Urine Occult Blood 3+ H (Negative) Urine Nitrate Positive H (Negative) Urine Bilirubin Negative (NEGATIVE) Urine Urobilinogen 0.2 (0.2) E.U./dL Ur Leukocyte Esterase Negative (NEGATIVE) Urine RBC 30-100/hpf H (0-5/HPF) Urine WBC None seen (0-5/HPF) Ur Squamous Epith Cells None seen (0-5/HPF) Urine Bacteria None seen (None) Ur Culture Indicated? Specimen cultured Vol Urine Centrifuged 10ml (spun) MDM Narrative Medical decision making narrative: Bladder scan shows about 800 mL Ferris catheter was placed. Patient signed out to Dr. Iqbal while awaiting workup. <Bao Iqbal MD - Last Filed: 03/11/24 19:19> Lab Data Attestation: I reviewed the patient's lab results. Labs: Lab Results 03/11/24 03/11/24 Range/Units 06:50 06:55 WBC 7.0 (4.5-11.0) X10^3/uL RBC 3.91 L (4.5-5.9) X10^6/uL Hgb 13.3 L (13.5-17.5) g/dL Hct 39.8 L (41-53) % MCV 101.9 H (80-100) fL MCH 34.1 H (26-34) PG MCHC 33.4 (30-36) % RDW 14.5 (11.6-14.8) % Plt Count 160 (150-400) X10^3/uL Neut % (Auto) 72.6 (50-75) % Lymph % (Auto) 14.4 L (25-40) % [place] % (Auto) 11.1 (3-14) % Eos % (Auto) 0.9 L (2-4) % Baso % (Auto) 1.0 (0-2) % Neut # (Auto) 5100 (0804-7988) /uL Lymph # (Auto) 1000 L (6349-3491) /uL [place] # (Auto) 800 (0-900) /uL Eos # (Auto) 100 (0-450) /uL Baso # (Auto) 100 (0-100) /uL Sodium 135 L (137-145) mmol/L Potassium 4.8 (3.4-5.1) mmol/L Chloride 105 (98-107) mmol/L Carbon Dioxide 22 (22-32) mmol/L BUN 21 H (9-20) mg/dL Creatinine 0.91 (0.66-1.25) mg/dL Estimated GFR > 60 (>60) mL/min BUN/Creatinine Ratio 23.1 H (6-22) Glucose 119 H (80-110) mg/dL Calcium 9.4 (8.4-10.2) mg/dL Urine Color [place] Urine Appearance Sl cloudy Urine pH 5.5 (4.5-8.0) Ur Specific [place] 1.020 (1.000-1.035) Urine Protein 1+ H (Negative) Urine Glucose (UA) Negative (Negative) g/dL Urine Ketones Negative (NEGATIVE) Urine Occult Blood 3+ H (Negative) Urine Nitrate Positive H (Negative) Urine Bilirubin Negative (NEGATIVE) Urine Urobilinogen 0.2 (0.2) E.U./dL Ur Leukocyte Esterase Negative (NEGATIVE) Urine RBC 30-100/hpf H (0-5/HPF) Urine WBC None seen (0-5/HPF) Ur Squamous Epith Cells None seen (0-5/HPF) Urine Bacteria None seen (None) Ur Culture Indicated? Specimen cultured Vol Urine Centrifuged 10ml (spun) MDM Narrative Medical decision making narrative: Bladder scan shows about 800 mL Ferris catheter was placed. Patient signed out to Dr. Iqbal while awaiting workup. 03/11/2024, 0700, Rasheed. Sign-out from Dr. Almanzar. 79-year-old male with urinary retention, on chronic Eliquis anticoagulation for atrial fibrillation, recently seen 03/04/2024 for gross hematuria, had CBI overnight, discharged home on Ferris catheter, removed as an outpatient in urology office, now with urinary retention symptoms, passage of small clots, bladder ultrasound tonight shows residual volume estimated 800 cc, Ferris to be placed. Assumed care. On Ferris placement there is gross hematuria dark red wine collar without obvious clots, we will initiate CBI. Patient states that he had seen Dr. Miller local urologists for catheter removal recently. Urinalysis shows nitrite positive hematuria, no bacteria however seen, urine culture requested. Patient states that he has been off his Eliquis for the last 5 days. Hemoglobin 13 today, no change from a few days ago. We will initiate CBI Hematuria cleared, clear urine in tubing. We will contact Dr. Miller Phone call discussion with Dr. Desouza, he is in-house and we will come to see the patient. Dr. Miller saw patient, patient wanted catheter out, removed by Dr. Miller. He would like patient to be observed for passage of urine. He is aware of urinalysis result, urine culture pending, hold on antibiotics for now pending urine culture. 1130, with catheter out patient has no urge to pee, bladder scan 400 mL, we will contact Dr. Angela Miller came to see patient, place Ferris catheter, we will discharge patient on antibiotics per preference, oral cefdinir dose here, Rx for cefdinir e-sent to his pharmacy. Dr. Miller was see patient on Saturday afternoon, patient has appointment time known to them. Discharge Plan Departure Patient Disposition: Home Clinical Impression: Urinary retention, Urinary tract infection Activity Restrictions/Additional Instructions: Urinary retention symptoms, initial removal of catheter after flushing, observation with reaccumulation of urine and retention symptoms again, your urologist Dr. Miller came in and placed catheter after previous continuous irrigation, leave new catheter in place until follow up Saturday with Dr. Miller as planned. Urine suspicious for possible infection, 1st antibiotic cefdinir given in the emergency department, further course of antibiotics sent to local pharmacy to fill now before holiday weekend. Follow up with your urologist as planned Saturday. Return to earlier to this/nearest emergency department for any change worsening symptoms or any concerns prior Prescriptions: New cefdinir 300 mg capsule 300 mg PO BID 7 Days Qty: 14 0RF No Action losartan [Cozaar] 50 MG tablet 100 mg PO BEDTIME Qty: 0 allopurinol 300 MG tablet 300 mg PO QDAY Qty: 0 OMEGA-3/DHA/EPA/FISH OIL ([place]-3 Fish Oil Softgel) 3,000 units PO DAILY Qty: 0 atorvastatin 40 mg PO BEDTIME cholecalciferol (vitamin D3) [Vitamin D3] 50 mcg (2,000 unit) Capsule 50 mcg PO DAILY cyanocobalamin (vitamin B-12) 5,000 mcg Capsule 5,000 mcg PO DAILY aspirin 81 mg tablet,delayed release (DR/EC) 81 mg PO DAILY atorvastatin 80 mg tablet 80 mg PO DAILY Eliquis 5 mg tablet 5 mg PO BID potassium chloride 20 mEq tablet extended release 20 meq PO DAILY tamsulosin 0.4 mg capsule 0.4 mg PO DAILY Referrals: Livan Miller DO [Physician] - Bala Matt MD [Primary Care Provider] - Stand Alone Forms: Patient Portal/API/Survey
[2024-03-11 06:59] LABS: Appearance Urine UA SL CLOUDY; Bilirubin Urine UA NEGATIVE (NEGATIVE); Color Urine UA ORANGE; Glucose Urine UA NEGATIVE (Negative); Ketones Urine UA NEGATIVE (NEGATIVE); Leukocyte Esterase Urine UA NEGATIVE (NEGATIVE); Nitrite Urine UA POSITIVE (Negative); Occult Blood Urine UA 3+ (Negative); Protein Urine UA 1+ (Negative); Urobilinogen Urine UA 0.2 E.U./dL (0.2); pH Urine UA 5.5 (4.5-8.0)
[2024-03-11 07:02] LABS: Urine Volume 10mL (spun)
[2024-03-11 07:03] LABS: Bacteria Urine None Seen; Culture Indicated Urine Specimen Cultured; RBC Urine 30-100/HPF (0-5/HPF); Squamous Epithelial Cell Urine None Seen (0-5/HPF); WBC Urine None Seen (0-5/HPF)
[2024-03-11 07:08] LABS: Add Manual Diff / Slide Review NO; Basophils Absolute Auto 100 /uL (0-100); Eosinophils Absolute Auto 100 /uL (0-450); Eosinophils Percent Auto 0.9 % (2-4); Hematocrit 39.8 % (41-53); Hemoglobin 13.3 g/dL (13.5-17.5); Lymphocytes Absolute Auto 1000 /uL (1100-4500); Lymphocytes Percent Auto 14.4 % (25-40); Mean Corpuscular HGB Conc 33.4 % (30-36); Mean Corpuscular Hemoglobin 34.1 PG (26-34); Mean Corpuscular Volume 101.9 fL (80-100); Monocytes Absolute Auto 800 /uL (0-900); Monocytes Percent Auto 11.1 % (3-14); Neutrophils Absolute Auto 5100 /uL (1500-7000); Neutrophils Percent Auto 72.6 % (50-75); Platelet Count 160 X10^3/uL (150-400); Red Blood Cell Count 3.91 X10^6/uL (4.5-5.9); Red Cell Distribution Width 14.5 % (11.6-14.8)
[2024-03-11 07:18] LABS: BUN Creatinine Ratio 23.1 (6-22); Blood Urea Nitrogen 21 mg/dL (9-20); Calcium 9.4 mg/dL (8.4-10.2); Carbon Dioxide 22 mmol/L (22-32); Chloride 105 mmol/L (98-107); Estimated Glomerular Filt Rate > 60 mL/min (>60); Glucose 119 mg/dL (80-110); HEMOLYSIS 57 (0-50); Potassium 4.8 mmol/L (3.4-5.1); Sodium 135 mmol/L (137-145)
--- NOTE | 2024-03-11 07:46 | PC.NURSE ---
Report rec'd from NOC shift. Pt with urinary retention, off eliquis x 5 days with persistent hematuria with small clots. NOC shift placed 3 way 18F urinary cath. CBI set up per verbal order. pt tolerating well. Infusing one 3L bag of sterile water at this time.
--- NOTE | 2024-03-11 09:39 | PC.NURSE ---
Dr Miller in ED at bedside and removed Ferris catheter. about 400-500 ml instilled from the remainder of CBI bag. Plan to have pt urinate in urinal and DC home for follow up. if unable to urinate, place for Dr Miller to place new cath and send pt home with Ferris education and follow up
--- NOTE | 2024-03-11 09:49 | P.CONS_ITS ---
History of Present Illness Consult details Date Patient Seen: 03/11/24 Time Patient Seen: 09:49 Chief complaint: can't urinate, blood clots in pee Narrative: 79 y/o M w/ h/o prostate cancer treated w/ XRT who presented to ER for evaluation of gross hematuria and inability to urinate on 04 Mar 2024. Briefly, he was diagnosed w/ prostate cancer (do not have details of his pathology results from his TRUS prostate biopsy), however, explains that he was treated w/ XRT a little more than two years ago. He ultimately had a 24Fr 3-way hematuria catheter and more than 200cc of clot was manually evacuated from his bladder and he was admitted overnight for CBI. His marina catheter was removed in Urology clinic on 09 Mar 2024 and he was able to urinate without difficulty. Unfortunately, he developed recurrence of his gross hematuria overnight and has been unable to urinate for more than 8 hours, therefore, presented to ER for further evaluation. He had a bladder scan performed that noted 800cc. Therefore, a 22-Fr 3-way catheter was placed with immediate drainage of more than 800cc of red urine with minimal clots. He was then started on continuous bladder irrigation and Urology was consulted at the patient's request. Meds Home Medications and Allergies Home Medications Medication Instructions Recorded Confirmed Type OMEGA-3/DHA/EPA/FISH OIL ([place]-3 3,000 units PO DAILY ##0 12/05/10 03/04/24 History Fish Oil Softgel) allopurinol 300 mg tablet 300 mg PO QDAY ##0 12/05/10 03/09/24 History losartan 50 mg tablet (Cozaar) 100 mg PO BEDTIME ##0 12/05/10 03/09/24 History atorvastatin 40 mg PO BEDTIME 01/05/20 03/09/24 History cholecalciferol (vitamin D3) 50 50 mcg PO DAILY 01/05/20 03/04/24 History mcg (2,000 unit) capsule (Vitamin D3) cyanocobalamin (vitamin B-12) 5,000 mcg PO DAILY 01/05/20 03/04/24 History 5,000 mcg capsule apixaban 5 mg tablet (Eliquis) 5 mg PO BID 03/09/24 03/09/24 History aspirin 81 mg tablet,delayed 81 mg PO DAILY 03/09/24 History release atorvastatin 80 mg tablet 80 mg PO DAILY 03/09/24 03/09/24 History potassium chloride 20 mEq 20 meq PO DAILY 03/09/24 03/09/24 History tablet,extended release tamsulosin 0.4 mg capsule 0.4 mg PO DAILY 03/09/24 03/09/24 History Allergies Allergy/AdvReac Type Severity Reaction Status Date / Time No Known Drug Allergies Allergy Verified 03/09/24 14:17 Review of Systems Review of Systems Narrative: CONSTITUTIONAL: Denies weight loss, fevers, chills. HEENT: Denies change in vision, hearing. RESP: Denies SOB, cough. CV: Denies palpations, CP. GI: Denies abdominal pain, nausea, vomiting, diarrhea. MSK: Denies myalgia, joint pain. SKIN: Denies rash, pruritus. NEURO: Denies headache, syncope. PSYCH: Denies recent change in mood, anxiety, depression. Exam Vital Signs (past 8 hours): - 03/11/24 06:29 03/11/24 06:30 03/11/24 06:30 Temperature 98.4 F Pulse Rate 61 49 L Respiratory Rate 20 Blood Pressure 137/62 155/71 H Pulse Oximetry 97 97 Oxygen Delivery Method Room Air 03/11/24 06:31 03/11/24 06:31 03/11/24 06:51 Temperature Pulse Rate 50 L Respiratory Rate Blood Pressure 155/71 H 157/70 H Pulse Oximetry 97 Oxygen Delivery Method 03/11/24 06:51 03/11/24 07:00 03/11/24 07:00 Temperature Pulse Rate 53 L 71 Respiratory Rate Blood Pressure 140/65 Pulse Oximetry 96 95 Oxygen Delivery Method 03/11/24 07:30 03/11/24 07:30 03/11/24 08:00 Temperature Pulse Rate 54 L 70 Respiratory Rate Blood Pressure 120/67 Pulse Oximetry 93 96 Oxygen Delivery Method 03/11/24 08:00 03/11/24 08:30 03/11/24 08:30 Temperature Pulse Rate 69 Respiratory Rate Blood Pressure 132/73 135/78 Pulse Oximetry 94 Oxygen Delivery Method 03/11/24 09:00 03/11/24 09:00 03/11/24 09:30 Temperature Pulse Rate 70 84 Respiratory Rate Blood Pressure 146/82 H Pulse Oximetry 94 96 Oxygen Delivery Method 03/11/24 09:31 03/11/24 09:31 Temperature Pulse Rate 88 Respiratory Rate Blood Pressure 179/81 H Pulse Oximetry 96 Oxygen Delivery Method Oxygen Delivery Method Room Air Narrative Exam Narrative: GEN: Alert and oriented X3. No acute distress. Well-nourished. EYES: PERRLA, EOMI. HENT: Moist mucus membranes, no scleral icterus, normal neck ROM. RESP: Unlabored breathing, equal rise and fall of chest bilaterally, no cyanosis appreciated. CV: No peripheral edema, unremarkable heart rate. ABD: Soft, non-tender, non-distended, no palpable masses. : 22-Fr 3-way catheter secured and draining clear efflux on brisk drip of CBI. EXT: No edema, clubbing or cyanosis. SKIN: No rashes or lesions. NEURO: No focal neurologic deficits, CN II-XII grossly intact. PSYCH: Cooperative, appropriate mood and affect. Objective Labs 03/11/24 06:55 03/11/24 06:55 Labs: Laboratory Results - last 24 hr 03/11/24 03/11/24 06:50 06:55 WBC 7.0 RBC 3.91 L Hgb 13.3 L Hct 39.8 L MCV 101.9 H MCH 34.1 H MCHC 33.4 RDW 14.5 Plt Count 160 Neut % (Auto) 72.6 Lymph % (Auto) 14.4 L [place] % (Auto) 11.1 Eos % (Auto) 0.9 L Baso % (Auto) 1.0 Neut # (Auto) 5100 Lymph # (Auto) 1000 L [place] # (Auto) 800 Eos # (Auto) 100 Baso # (Auto) 100 Sodium 135 L Potassium 4.8 Chloride 105 Carbon Dioxide 22 BUN 21 H Creatinine 0.91 Estimated GFR > 60 BUN/Creatinine Ratio 23.1 H Glucose 119 H Calcium 9.4 Urine Color [place] Urine Appearance Sl cloudy Urine pH 5.5 Ur Specific [place] 1.020 Urine Protein 1+ H Urine Glucose (UA) Negative Urine Ketones Negative Urine Occult Blood 3+ H Urine Nitrate Positive H Urine Bilirubin Negative Urine Urobilinogen 0.2 Ur Leukocyte Esterase Negative Urine RBC 30-100/hpf H Urine WBC None seen Ur Squamous Epith Cells None seen Urine Bacteria None seen Ur Culture Indicated? Specimen cultured Vol Urine Centrifuged 10ml (spun) [facility] Medical History Elevated PSA Gout Hyperlipidemia Hypertension Surgical History Aortic valve replaced History of left hip replacement Family History Father Lung cancer Tobacco use disorder, severe, in controlled environment, dependence Mother Dementia Social History household members: spouse Tobacco & Substance Use Smoking Status: Never smoker alcohol intake: current substance use type: does not use Assessment & Plan Assessment and plan (1) Hematuria: Qualifiers: Hematuria type: unspecified type Qualified Code(s): R31.9 - Hematuria, unspecified Status: Acute Plan: 79 y/o M w/ h/o prostate cancer treated w/ XRT more than two years ago who developed clot retention on 04 Mar 2024. He had a 24Fr 3-way hematuria catheter placed w/ manual evacuation of 200cc of clot and was admitted overnight for CBI. His marina catheter was removed in the Urology clinic on 09 Mar 2024 and he was able to urinate without difficulty. Unfortunately, he had recurrence of his gross hematuria and was unable to urinate earlier this morning. A 22Fr 3-way catheter was placed with immediate drainage of more than 800cc of red urine w/ minimal clots. Discussed treatment options to include a voiding trial in the ER (not recommended as he may have recurrence of his clot retention over the long holiday weekend) vs exchange of his marina catheter for a hematuria catheter and manual irrigation of his bladder to ensure no residual clots are left. He would then be discharged home with his marina catheter in place and return to Urology clinic for a voiding trial next week. He ultimately elected to proceed with a voiding trial and his marina catheter was removed. - He will urinate in the urinal and let his nurse know so that a PVR may be performed. As long as he is emptying his bladder, he is safe for discharge from a Urology perspective. 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 He is currently holding his blood thinners and will restart these on the afternoon of 13 Mar 2024. Unsure as to when his PSA was last checked, however, discussed that it would be artificially elevated at this time secondary to his clot retention. Therefore, will plan on repeating it a little more than 6 months from now. (2) Acute urinary retention: Status: Acute Plan: Please see plan above. Time-Based Coding :: [TOTAL MINUTES] spent with patient and on the chart (including review of chart, obtaining history, exam, reviewing outside data, placing orders, documenting exam and treatment plan, and counseling patient) on [DATE]. PROFEE Charge Codes Inpatient or Observation consultation: [id number]
[2024-03-11] MEDS: HYDROMORPHONE 0.5 MG INJ IV (12:26)
[2024-03-11] MEDS: LIDOCAINE 2% (GLYDO) 6 ML GEL TOP (12:27)
[2024-03-11] MEDS: CEFDINIR 300 MG CAPSULE PO (13:06)
== END 2024-03-11 15:38 | disposition home or self-care (01) ==
PROVIDERS: Emergency Medicine; Emergency Provider Emergency Medicine; PCP Internal Medicine
DX: N39.0 Urinary tract infection, site not specified (principal); R33.9 Retention of urine, unspecified
CPT/HCPCS: 36415; 51700; 51798; 80048; 81001; 85025; 87086; 96374; 99284; 99285; J1171

== ENCOUNTER 2024-03-24 20:57 | Observation (INO) | payer OTHER, SELFPAY ==
[2024-03-16 14:38] VITALS: BMI 31.8
[2024-03-24 21:06] VITALS: BP 123/62; PULSE 69; RESP 18; TEMP 36.6; O2SAT 96; BMI 30.7
[2024-03-24] MEDS: LIDOCAINE 2% (GLYDO) 6 ML GEL TOP (21:45)
[2024-03-24 22:29] LABS: Appearance Urine UA CLOUDY; Nitrite Urine UA POSITIVE (Negative); Occult Blood Urine UA 3+ (Negative); Protein Urine UA 3+ (Negative); pH Urine UA 6.5 (4.5-8.0)
[2024-03-24 22:52] LABS: Bilirubin Urine UA 1+ (NEGATIVE); Glucose Urine UA NEGATIVE (Negative); Ketones Urine UA NEGATIVE (NEGATIVE); Specific Gravity Urine UA 1.015 (1.000-1.035)
[2024-03-24 22:53] LABS: Color Urine UA RED; Leukocyte Esterase Urine UA NEGATIVE (NEGATIVE); Urobilinogen Urine UA 0.2 E.U./dL (0.2)
[2024-03-24 22:54] LABS: Ictotest Urine Negative (Negative); RBC Urine >100/HPF (0-5/HPF); Urine Volume 10mL (spun)
[2024-03-24 22:55] LABS: Bacteria Urine Few (2-10); Culture Indicated Urine Specimen Cultured; Squamous Epithelial Cell Urine None Seen (0-5/HPF); WBC Urine 1-5/HPF (0-5/HPF)
[2024-03-25] VITALS (12 sets, daily range): BP systolic 126–183; BP diastolic 74–95; PULSE 48–88; RESP 16–22; TEMP 35.8–37.6; O2SAT 93–100; BMI 30.7
--- NOTE | 2024-03-25 01:19 | ED.MALEGU ---
HPI - Male Genitourinary <Bao Iqbal MD - Last Filed: 03/25/24 16:06> General Chief complaint: Urogenital-Male Stated complaint: urinary catheter needed Time Seen by Provider: 03/25/24 01:18 History of Present Illness HPI Narrative: 79-year-old male with history of prostate cancer status post prior radiation treatment, suspected bladder dysfunction post radiation treatment, awaiting cystoscopy procedure with local urologist Dr. Miller currently scheduled for 04/02/2024, this evening felt like he could not urinate. No fevers or chills. Eliquis anticoagulant on current medication list noted. Related Data Home Medications Medication Instructions Recorded Confirmed OMEGA-3/DHA/EPA/FISH OIL ([place]-3 3,000 units PO DAILY ##0 12/05/10 03/19/24 Fish Oil Softgel) allopurinol 300 mg tablet 300 mg PO QDAY ##0 12/05/10 03/19/24 losartan 50 mg tablet (Cozaar) 100 mg PO BEDTIME ##0 12/05/10 03/19/24 atorvastatin 40 mg PO BEDTIME 01/05/20 03/19/24 cholecalciferol (vitamin D3) 50 50 mcg PO DAILY 01/05/20 03/19/24 mcg (2,000 unit) capsule (Vitamin D3) cyanocobalamin (vitamin B-12) 5,000 mcg PO DAILY 01/05/20 03/19/24 5,000 mcg capsule apixaban 5 mg tablet (Eliquis) 5 mg PO BID 03/09/24 03/19/24 aspirin 81 mg tablet,delayed 81 mg PO DAILY 03/09/24 03/19/24 release atorvastatin 80 mg tablet 80 mg PO DAILY 03/09/24 03/19/24 potassium chloride 20 mEq 20 meq PO DAILY 03/09/24 03/19/24 tablet,extended release tamsulosin 0.4 mg capsule 0.4 mg PO DAILY 03/09/24 03/19/24 Allergies Allergy/AdvReac Type Severity Reaction Status Date / Time No Known Drug Allergies Allergy Verified 03/24/24 21:11 Review of Systems <Bao Iqbal MD - Last Filed: 03/25/24 16:06> Review of Systems Narrative: See HPI Patient History <Bao Iqbal MD - Last Filed: 03/25/24 16:06> Medical History Elevated PSA Gout Hyperlipidemia Hypertension Surgical History Aortic valve replaced History of left hip replacement Family History Father Lung cancer Tobacco use disorder, severe, in controlled environment, dependence Mother Dementia Social History household members: spouse and children Smoking Status: Never smoker alcohol intake: current substance use type: does not use Smoking Status: Never smoker alcohol intake frequency: 0-2 drinks per day Exam <Bao Iqbal MD - Last Filed: 03/25/24 16:06> Narrative Exam Narrative: GENERAL: Well-developed patient, in mild distress. HEAD: Atraumatic. Normocephalic. EYES: Pupils equal round and reactive. Extraocular motions intact. No scleral icterus. No injection or drainage. ENT: Nose without bleeding, purulent drainage. Throat without erythema, tonsillar hypertrophy or exudate. Airway patent. NECK: Trachea midline. Non tender CARDIOVASCULAR: Regular rate and rhythm without murmurs, gallops, or rubs. RESPIRATORY: Clear to auscultation. Breath sounds equal bilaterally. No wheezes, rales, or rhonchi. GASTROINTESTINAL: Abdomen soft, non-tender, nondistended. EXTREMITIES: No edema or joint tenderness. BACK: Nontender without deformity or crepitance. No flank tenderness. NEURO: AOx3. Motor functions grossly nonfocal SKIN: No rash or erythema of visible areas Initial Vital Signs Initial Vital Signs: Vital Signs Temperature 98 F 03/24/24 21:06 Pulse Rate 69 03/24/24 21:06 Respiratory Rate 18 03/24/24 21:06 Blood Pressure 123/62 03/24/24 21:06 Pulse Oximetry 96 03/24/24 21:06 Oxygen Delivery Method Room Air 03/24/24 21:06 <Marco Henry DO - Last Filed: 03/25/24 13:00> Initial Vital Signs Initial Vital Signs: Vital Signs Temperature 98 F 03/24/24 21:06 Pulse Rate 69 03/24/24 21:06 Respiratory Rate 18 03/24/24 21:06 Blood Pressure 123/62 03/24/24 21:06 Pulse Oximetry 96 03/24/24 21:06 Oxygen Delivery Method Room Air 03/24/24 21:06 Course <Bao Iqbal MD - Last Filed: 03/25/24 16:06> Orders Ordered: Discontinued Medications Acetaminophen (Acetaminophen 325 Mg Tablet) 975 mg PO NOW ONE Stop: 03/25/24 04:48 Last Admin: 03/25/24 04:54 Dose: 975 mg Documented By: FRANCISCO Hydromorphone HCl (Hydromorphone 0.5 Mg Inj) 0.5 mg IV NOW ONE Stop: 03/25/24 07:41 Last Admin: 03/25/24 08:06 Dose: 0.5 mg Documented By: ESTELA Lidocaine HCl (Lidocaine 2% (Glydo) 6 Ml Gel) 6 ml TOP NOW ONE Stop: 03/24/24 21:18 Last Admin: 03/24/24 21:45 Dose: 6 ml Documented By: ADDY Lidocaine HCl (Lidocaine 2% (Glydo) 6 Ml Gel) 6 ml TOP NOW ONE Stop: 03/25/24 07:41 Last Admin: 03/25/24 08:06 Dose: 6 ml Documented By: ESTELA Vital Signs Vital signs: Vital Signs - 8 hr 03/25/24 11:53 Pulse Rate 76 Respiratory Rate 16 Blood Pressure 148/76 H Pulse Oximetry 100 Oxygen Delivery Method Room Air <Marco Henry DO - Last Filed: 03/25/24 13:00> Orders Ordered: Discontinued Medications Acetaminophen (Acetaminophen 325 Mg Tablet) 975 mg PO NOW ONE Stop: 03/25/24 04:48 Last Admin: 03/25/24 04:54 Dose: 975 mg Documented By: FRANCISCO Hydromorphone HCl (Hydromorphone 0.5 Mg Inj) 0.5 mg IV NOW ONE Stop: 03/25/24 07:41 Last Admin: 03/25/24 08:06 Dose: 0.5 mg Documented By: ESTELA Lidocaine HCl (Lidocaine 2% (Glydo) 6 Ml Gel) 6 ml TOP NOW ONE Stop: 03/24/24 21:18 Last Admin: 03/24/24 21:45 Dose: 6 ml Documented By: ADDY Lidocaine HCl (Lidocaine 2% (Glydo) 6 Ml Gel) 6 ml TOP NOW ONE Stop: 03/25/24 07:41 Last Admin: 03/25/24 08:06 Dose: 6 ml Documented By: CTS Vital Signs Vital signs: Vital Signs - 8 hr 03/25/24 11:53 Pulse Rate 76 Respiratory Rate 16 Blood Pressure 148/76 H Pulse Oximetry 100 Oxygen Delivery Method Room Air MDM - Male Genitourinary <Bao Iqbal MD - Last Filed: 03/25/24 16:06> Lab Data 03/25/24 05:52 03/25/24 05:52 Labs: Lab Results 03/24/24 03/25/24 Range/Units 21:34 05:52 WBC 7.6 (4.5-11.0) X10^3/uL RBC 3.46 L (4.5-5.9) X10^6/uL Hgb 11.7 L (13.5-17.5) g/dL Hct 34.5 L (41-53) % MCV 99.9 (80-100) fL MCH 33.9 (26-34) PG MCHC 33.9 (30-36) % RDW 14.3 (11.6-14.8) % Plt Count 163 (150-400) X10^3/uL Neut % (Auto) 69.1 (50-75) % Lymph % (Auto) 15.9 L (25-40) % [place] % (Auto) 12.9 (3-14) % Eos % (Auto) 1.0 L (2-4) % Baso % (Auto) 1.1 (0-2) % Neut # (Auto) 5200 (6017-8867) /uL Lymph # (Auto) 1200 (3689-4794) /uL [place] # (Auto) 1000 H (0-900) /uL Eos # (Auto) 100 (0-450) /uL Baso # (Auto) 100 (0-100) /uL PT 13.0 H (9.4-12.5) SECONDS INR 1.1 (0.9-1.3) Sodium 135 L (137-145) mmol/L Potassium 4.0 (3.4-5.1) mmol/L Chloride 105 (98-107) mmol/L Carbon Dioxide 24 (22-32) mmol/L BUN 23 H (9-20) mg/dL Creatinine 0.94 (0.66-1.25) mg/dL Estimated GFR > 60 (>60) mL/min BUN/Creatinine Ratio 24.5 H (6-22) Glucose 111 H (80-110) mg/dL Calcium 8.9 (8.4-10.2) mg/dL Total Bilirubin 0.6 (0.2-1.3) mg/dL AST 50 (17-59) IU/L ALT 47 (<50) IU/L Alkaline Phosphatase 179 H (38-126) U/L Total Protein 6.6 (6.3-8.2) g/dL Albumin 3.5 (3.5-5.0) g/dL Globulin 3.1 (1.7-4.1) g/dL Albumin/Globulin Ratio 1.1 (1.0-2.8) Urine Color Red Urine Appearance Cloudy Urine pH 6.5 (4.5-8.0) Ur Specific [place] 1.015 (1.000-1.035) Urine Protein 3+ H (Negative) Urine Glucose (UA) Negative (Negative) g/dL Urine Ketones Negative (NEGATIVE) Urine Occult Blood 3+ H (Negative) Urine Nitrate Positive H (Negative) Urine Bilirubin 1+ H (NEGATIVE) Ur Bilirubin Confirm Negative (Negative) Urine Urobilinogen 0.2 (0.2) E.U./dL Ur Leukocyte Esterase Negative (NEGATIVE) Urine RBC >100/hpf H (0-5/HPF) Urine WBC 1-5/hpf (0-5/HPF) Ur Squamous Epith Cells None seen (0-5/HPF) Urine Bacteria Few (2-10) H (None) Ur Culture Indicated? Specimen cultured Vol Urine Centrifuged 10ml (spun) MDM Narrative Medical decision making narrative: 79-year-old male with history of prostate cancer with remote radiation, suspected bladder function complications, awaiting cystoscopy next month local urology, had difficulty urinating this evening. On Ferris catheter placement had dark red blood, takes Eliquis. CBI initiated per nursing. Urinalysis shows hematuria, occasional bacteria, urine culture requested, hold antibiotics for now, pending urine culture results. No fever. Significantly improved, now light pink lemonade in color, no longer deep red. We will finish this bag, likely leave Ferris catheter in place, discharge patient home with Ferris catheter in place, he can contact his urologist tomorrow during regular hours. 0600, increased redness again in tubing, on third bag CBI, will contact urology 0630, case discussed with Dr. Miller, he will come to see the patient. Dr henry: Received turned over. Review patient's history and physical. Dr. Miller urology has been evaluating the patient. A new Ferris was placed. Continuous irrigation was continued without improvement. Plan will be to take the patient to the operating room for further evaluation and treatment. Patient will be admitted to Dr. Miller <Marco Henry, DO - Last Filed: 03/25/24 13:00> Lab Data Labs: Lab Results 03/24/24 03/25/24 Range/Units 21:34 05:52 WBC 7.6 (4.5-11.0) X10^3/uL RBC 3.46 L (4.5-5.9) X10^6/uL Hgb 11.7 L (13.5-17.5) g/dL Hct 34.5 L (41-53) % MCV 99.9 (80-100) fL MCH 33.9 (26-34) PG MCHC 33.9 (30-36) % RDW 14.3 (11.6-14.8) % Plt Count 163 (150-400) X10^3/uL Neut % (Auto) 69.1 (50-75) % Lymph % (Auto) 15.9 L (25-40) % [place] % (Auto) 12.9 (3-14) % Eos % (Auto) 1.0 L (2-4) % Baso % (Auto) 1.1 (0-2) % Neut # (Auto) 5200 (9009-2517) /uL Lymph # (Auto) 1200 (4106-8123) /uL [place] # (Auto) 1000 H (0-900) /uL Eos # (Auto) 100 (0-450) /uL Baso # (Auto) 100 (0-100) /uL PT 13.0 H (9.4-12.5) SECONDS INR 1.1 (0.9-1.3) Sodium 135 L (137-145) mmol/L Potassium 4.0 (3.4-5.1) mmol/L Chloride 105 (98-107) mmol/L Carbon Dioxide 24 (22-32) mmol/L BUN 23 H (9-20) mg/dL Creatinine 0.94 (0.66-1.25) mg/dL Estimated GFR > 60 (>60) mL/min BUN/Creatinine Ratio 24.5 H (6-22) Glucose 111 H (80-110) mg/dL Calcium 8.9 (8.4-10.2) mg/dL Total Bilirubin 0.6 (0.2-1.3) mg/dL AST 50 (17-59) IU/L ALT 47 (<50) IU/L Alkaline Phosphatase 179 H (38-126) U/L Total Protein 6.6 (6.3-8.2) g/dL Albumin 3.5 (3.5-5.0) g/dL Globulin 3.1 (1.7-4.1) g/dL Albumin/Globulin Ratio 1.1 (1.0-2.8) Urine Color Red Urine Appearance Cloudy Urine pH 6.5 (4.5-8.0) Ur Specific [place] 1.015 (1.000-1.035) Urine Protein 3+ H (Negative) Urine Glucose (UA) Negative (Negative) g/dL Urine Ketones Negative (NEGATIVE) Urine Occult Blood 3+ H (Negative) Urine Nitrate Positive H (Negative) Urine Bilirubin 1+ H (NEGATIVE) Ur Bilirubin Confirm Negative (Negative) Urine Urobilinogen 0.2 (0.2) E.U./dL Ur Leukocyte Esterase Negative (NEGATIVE) Urine RBC >100/hpf H (0-5/HPF) Urine WBC 1-5/hpf (0-5/HPF) Ur Squamous Epith Cells None seen (0-5/HPF) Urine Bacteria Few (2-10) H (None) Ur Culture Indicated? Specimen cultured Vol Urine Centrifuged 10ml (spun) MDM Narrative Medical decision making narrative: 79-year-old male with history of prostate cancer with remote radiation, suspected bladder function complications, awaiting cystoscopy next month local urology, had difficulty urinating this evening. On Ferris catheter placement had dark red blood, takes Eliquis. CBI initiated per nursing. Urinalysis shows hematuria, occasional bacteria, urine culture requested, hold antibiotics for now, pending urine culture results. No fever. Significantly improved, now light pink lemonade in color, no longer deep red. We will finish this bag, likely leave Ferris catheter in place, discharge patient home with Ferris catheter in place, he can contact his urologist tomorrow during regular hours. 0630, case discussed with Dr. Miller, he will come to see the patient. Dr henry: Received turned over. Review patient's history and physical. Dr. Miller urology has been evaluating the patient. A new Ferris was placed. Continuous irrigation was continued without improvement. Plan will be to take the patient to the operating room for further evaluation and treatment. Patient will be admitted to Dr. Miller Discharge Plan Departure Patient Disposition: Admitted to Surgery Clinical Impression: Gross hematuria, Acute urinary retention, History of prostate cancer Admit Date/Time: 03/25/24 12:18 Admit Provider: Livan Miller
--- NOTE | 2024-03-25 04:32 | PC.NURSE ---
bladder irrigation complete. urine still a strawberry red color. tiny blood clots in catheter bag.
[2024-03-25] MEDS: ACETAMINOPHEN 325 MG TABLET 975 MG PO (04:54)
[2024-03-25 06:06] LABS: Add Manual Diff / Slide Review NO; Basophils Absolute Auto 100 /uL (0-100); Basophils Percent Auto 1.1 % (0-2); Eosinophils Absolute Auto 100 /uL (0-450); Hematocrit 34.5 % (41-53); Hemoglobin 11.7 g/dL (13.5-17.5); Lymphocytes Absolute Auto 1200 /uL (1100-4500); Lymphocytes Percent Auto 15.9 % (25-40); Mean Corpuscular HGB Conc 33.9 % (30-36); Mean Corpuscular Hemoglobin 33.9 PG (26-34); Mean Corpuscular Volume 99.9 fL (80-100); Monocytes Absolute Auto 1000 /uL (0-900); Monocytes Percent Auto 12.9 % (3-14); Neutrophils Absolute Auto 5200 /uL (1500-7000); Neutrophils Percent Auto 69.1 % (50-75); Platelet Count 163 X10^3/uL (150-400); Red Blood Cell Count 3.46 X10^6/uL (4.5-5.9); Red Cell Distribution Width 14.3 % (11.6-14.8); White Blood Cell Count 7.6 X10^3/uL (4.5-11.0)
[2024-03-25 06:11] LABS: INR 1.1 (0.9-1.3)
[2024-03-25 06:15] LABS: Alanine Aminotransferase 47 IU/L (<50); Albumin 3.5 g/dL (3.5-5.0); Albumin Globulin Ratio 1.1 (1.0-2.8); Alkaline Phosphatase 179 U/L (38-126); Aspartate Aminotransferase 50 IU/L (17-59); BUN Creatinine Ratio 24.5 (6-22); Bilirubin Total 0.6 mg/dL (0.2-1.3); Blood Urea Nitrogen 23 mg/dL (9-20); Calcium 8.9 mg/dL (8.4-10.2); Carbon Dioxide 24 mmol/L (22-32); Chloride 105 mmol/L (98-107); Estimated Glomerular Filt Rate > 60 mL/min (>60); Globulin 3.1 g/dL (1.7-4.1); Glucose 111 mg/dL (80-110); HEMOLYSIS < 15 (0-50); Sodium 135 mmol/L (137-145); Total Protein 6.6 g/dL (6.3-8.2)
--- NOTE | 2024-03-25 06:56 | PC.NURSE ---
3 continuous bladder irragation bag infused. Urine decreasing in redness, no clots seen. Pt reports pain at catheter site was medicated with tylenol with improvement.
[2024-03-25] MEDS: LIDOCAINE 2% (GLYDO) 6 ML GEL TOP (08:06)
[2024-03-25] MEDS: HYDROMORPHONE 0.5 MG INJ IV (08:06)
--- NOTE | 2024-03-25 10:44 | PC.NURSE ---
Dr Miller in ED around [id number]. catheter changed by MD to his discretion. pt tolerated well. IV placed and pain meds given per JUN. Dr Miller hung 1L NS to irrigate. Ferris emptied and contiues to be dark red in color. denies pain. resting comfortably in bed sleeping with equal rise and fall of chest.
--- NOTE | 2024-03-25 12:52 | PC.NURSE ---
Per smelter charger, CBI stopped per Dr. Miller @9170. Dr Miller in tx room several times this am to irrigate and flush catheter, large and small clots. Pt going to the OR this evening at 1730. Pt received a total of 9,000ml of CBI (3 x 3,000 ml bag), night custodian, plus 1,000 ml CBI irrigation of NS 0.9% day shift.
--- NOTE | 2024-03-25 12:59 | P.CONS_ITS ---
History of Present Illness Consult details Date Patient Seen: 03/25/24 Time Patient Seen: 07:30 Chief complaint: urinary catheter needed Reason for consult: Gross hematuria, clot retention Narrative: 79 y/o M w/ h/o prostate cancer treated w/ XRT who presented to ER for evaluation of gross hematuria and inability to urinate on the evening of 24 Mar 2024. Briefly, he was diagnosed w/ prostate cancer (do not have details of his pathology results from his TRUS prostate biopsy), however, explains that he was treated w/ XRT a little more than two years ago. This is his third trip to the ER for evaluation of these symptoms. The other two occasions, Mar 04 and Mar 112023, both resulted in placement of a hematuria catheter, irrigation of bladder clot and discharge home w/ the catheter in place for a few days. His most recent catheter was removed in clinic on 19 Mar 2024. Meds Home Medications and Allergies Home Medications Medication Instructions Recorded Confirmed Type OMEGA-3/DHA/EPA/FISH OIL ([place]-3 3,000 units PO DAILY ##0 12/05/10 03/19/24 History Fish Oil Softgel) allopurinol 300 mg tablet 300 mg PO QDAY ##0 12/05/10 03/19/24 History losartan 50 mg tablet (Cozaar) 100 mg PO BEDTIME ##0 12/05/10 03/19/24 History atorvastatin 40 mg PO BEDTIME 01/05/20 03/19/24 History cholecalciferol (vitamin D3) 50 50 mcg PO DAILY 01/05/20 03/19/24 History mcg (2,000 unit) capsule (Vitamin D3) cyanocobalamin (vitamin B-12) 5,000 mcg PO DAILY 01/05/20 03/19/24 History 5,000 mcg capsule apixaban 5 mg tablet (Eliquis) 5 mg PO BID 03/09/24 03/19/24 History aspirin 81 mg tablet,delayed 81 mg PO DAILY 03/09/24 03/19/24 History release atorvastatin 80 mg tablet 80 mg PO DAILY 03/09/24 03/19/24 History potassium chloride 20 mEq 20 meq PO DAILY 03/09/24 03/19/24 History tablet,extended release tamsulosin 0.4 mg capsule 0.4 mg PO DAILY 03/09/24 03/19/24 History Allergies Allergy/AdvReac Type Severity Reaction Status Date / Time No Known Drug Allergies Allergy Verified 03/24/24 21:11 Review of Systems Review of Systems Narrative: CONSTITUTIONAL: Denies weight loss, fevers, chills. HEENT: Denies change in vision, hearing. RESP: Denies SOB, cough. CV: Denies palpations, CP. GI: Denies abdominal pain, nausea, vomiting, diarrhea. : Admits to hematuria, inability to void. MSK: Denies myalgia, joint pain. SKIN: Denies rash, pruritus. NEURO: Denies headache, syncope. PSYCH: Denies recent change in mood, anxiety, depression. Exam Vital Signs (past 8 hours): - 03/25/24 07:30 03/25/24 11:53 03/25/24 12:19 Pulse Rate 74 76 74 Respiratory Rate 20 16 18 Blood Pressure 156/76 H 148/76 H 166/74 H Pulse Oximetry 97 100 95 Oxygen Delivery Method Room Air Room Air Room Air Oxygen Delivery Method Room Air Narrative Exam Narrative: GEN: Alert and oriented X3. No acute distress. Well-nourished. EYES: PERRLA, EOMI. HENT: Moist mucus membranes, no scleral icterus, normal neck ROM. RESP: Unlabored breathing, equal rise and fall of chest bilaterally, no cyanosis appreciated. CV: No peripheral edema, unremarkable heart rate. ABD: Soft, non-tender, non-distended, no palpable masses. : Soft 3-way catheter in place draining dark red urine. This catheter was removed and a new 22Fr 3-way hematuria catheter was placed w/ immediate drainage of 200 cc of dark red urine. 30cc of sterile water was utilized for balloon insufflation. More than 100cc of clot was manually evacuated from his bladder multiple times. EXT: No edema, clubbing or cyanosis. SKIN: No rashes or lesions. NEURO: No focal neurologic deficits, CN II-XII grossly intact. PSYCH: Cooperative, appropriate mood and affect. Objective Labs 03/25/24 05:52 03/25/24 05:52 Labs: Laboratory Results - last 24 hr 03/24/24 03/25/24 21:34 05:52 WBC 7.6 RBC 3.46 L Hgb 11.7 L Hct 34.5 L MCV 99.9 MCH 33.9 MCHC 33.9 RDW 14.3 Plt Count 163 Neut % (Auto) 69.1 Lymph % (Auto) 15.9 L [place] % (Auto) 12.9 Eos % (Auto) 1.0 L Baso % (Auto) 1.1 Neut # (Auto) 5200 Lymph # (Auto) 1200 [place] # (Auto) 1000 H Eos # (Auto) 100 Baso # (Auto) 100 PT 13.0 H INR 1.1 Sodium 135 L Potassium 4.0 Chloride 105 Carbon Dioxide 24 BUN 23 H Creatinine 0.94 Estimated GFR > 60 BUN/Creatinine Ratio 24.5 H Glucose 111 H Calcium 8.9 Total Bilirubin 0.6 AST 50 ALT 47 Alkaline Phosphatase 179 H Total Protein 6.6 Albumin 3.5 Globulin 3.1 Albumin/Globulin Ratio 1.1 Urine Color Red Urine Appearance Cloudy Urine pH 6.5 Ur Specific [place] 1.015 Urine Protein 3+ H Urine Glucose (UA) Negative Urine Ketones Negative Urine Occult Blood 3+ H Urine Nitrate Positive H Urine Bilirubin 1+ H Ur Bilirubin Confirm Negative Urine Urobilinogen 0.2 Ur Leukocyte Esterase Negative Urine RBC >100/hpf H Urine WBC 1-5/hpf Ur Squamous Epith Cells None seen Urine Bacteria Few (2-10) H Ur Culture Indicated? Specimen cultured Vol Urine Centrifuged 10ml (spun) PFSH Medical History Elevated PSA Gout Hyperlipidemia Hypertension Surgical History Aortic valve replaced History of left hip replacement Family History Father Lung cancer Tobacco use disorder, severe, in controlled environment, dependence Mother Dementia Social History household members: spouse Tobacco & Substance Use Smoking Status: Never smoker alcohol intake: current substance use type: does not use Assessment & Plan Assessment and plan (1) Gross hematuria: Status: Acute Plan: 79 y/o M w/ h/o prostate cancer treated w/ XRT more than two years ago who developed clot retention for the third time in the last few weeks on the evening of 24 Mar 2024. Discussed that unlike the other occasions, I am unable to irrigate all of the clot from his bladder and he continues to have dark red urine. Therefore, will keep him NPO and proceed to the operating room for a cystoscopy, clot evacuation, bladder fulguration and possible transurethral resection of bladder tumor. Discussed risks of the procedure to include pain, bleeding, infection, injury to urethra/prostate/bladder/ureteral orifice, need for a ureteral stent, prolonged catheterization, and possible open repair of ureteral and/or bladder injury. He indicated understanding and signed inform consent today in the ED. (2) Acute urinary retention: Status: Acute Plan: Please see plan above. Time-Based Coding :: [TOTAL MINUTES] spent with patient and on the chart (including review of chart, obtaining history, exam, reviewing outside data, placing orders, documenting exam and treatment plan, and counseling patient) on [DATE]. PROFEE Charge Codes Inpatient or Observation consultation: 32720
[2024-03-25] MEDS: LACTATED RINGERS 1,000 ML 42 ML IV (16:34)
--- NOTE | 2024-03-25 16:43 | SUR.OPER ---
Lithotomy on padded OR bed, head on pillow, arms secured on padded arm boards at <90 degrees abduction. Legs secured in padded yellow fins stirrups.
--- NOTE | 2024-03-25 17:51 | PM.OP.1 ---
Procedure & Clinicians Procedure: Cystoscopy Clot evacuation Bladder fulguration Same procedure as scheduled: Yes Indications: 79 y/o M w/ h/o prostate cancer treated w/ XRT more than two years ago who developed clot retention for the third time in the last few weeks on the evening of 24 Mar 2024. Discussed that unlike the other occasions, I am unable to irrigate all of the clot from his bladder and he continues to have dark red urine. Therefore, will keep him NPO and proceed to the operating room for a cystoscopy, clot evacuation, bladder fulguration and possible transurethral resection of bladder tumor. 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 He was then brought to the operating room where general anesthesia was induced. He was then placed in the low lithotomy position. He was then prepped and draped in the usual sterile fashion. A surgical timeout was conducted and all were in agreement. Access to the bladder was obtained via a 21Fr cystoscope. Complete cystoscopy was then performed using a 30 and 70 degree lens. Bilateral ureteral orifice were easily visualized and noted to be orthotopic in nature. He had grade 3 trabeculations throughout his bladder, no concerning masses or lesions were appreciated. He was noted to have a very large organized bladder clot. The cystoscope was then removed and the 26Fr resectoscope with visual obturator was then advanced through his urethra and into his bladder. The working element with Gyrus loop was then assembled and passed through the resectoscope and into the bladder. The aforementioned bladder clot was then manually evacuated from his bladder using a combination of loop electrocautery and E[place] irrigation. He was noted to have active oozing from his bladder neck and proximal prostatic urethra that was controlled with loop electrocautery. Hemostasis was evaluated and noted to be excellent at case end. A 24Fr 3-way hematuria catheter was then inserted into his bladder, 45cc of sterile water was utilized for balloon insufflation. Continuous bladder irrigation was then initiated and it was noted to be clear. Anesthesia was reversed, he was extubated in the OR and transferred to the PACU in stable condition for recovery. Complications: none Post-operative Condition: stable Disposition: observation Plan for aftercare: Will transfer back to the dee and then discharge home with catheter plug in place. Will return to Urology clinic on 30 Mar 2024 for a voiding trial.
--- NOTE | 2024-03-25 20:52 | PC.NURSE ---
Patient teaching done at bedside with and patient. Many questions and concerns were addressed. Patient was adamant that he was not going to leave the hospital until I swapped out his cath. urine bag. Patient req. one episode of cath. irrigation/agitation of saline to free a clot (measuring roughly 1in long) several scattered small clots followed the larger one. Patient's cath. cont. to drain without difficulty. Provider was called and informed of high grade level of urine color, and change out of collection bag. Patient left in stable condition was able to get self in car with no help.
== END 2024-03-25 20:52 | disposition home or self-care (01) ==
LOC: ED 03-25 12:16 → AC 03-25 12:19
PROVIDERS: Emergency Medicine; Admitting Provider Urology; Emergency Provider Emergency Medicine; PCP Internal Medicine; Referring Provider Emergency Medicine; Visit Provider Urology
PROC: 0TJB8ZZ Inspection of Bladder, Via Natural or Artificial Opening Endoscopic (ICD-10-PCS; CPT 52000; principal; 2024-03-25 17:30)
DX: R31.0 Gross hematuria (principal); R33.8 Other retention of urine; Z85.46 Personal history of malignant neoplasm of prostate; I10 Essential (primary) hypertension; E78.5 Hyperlipidemia, unspecified; Z79.01 Long term (current) use of anticoagulants
CPT/HCPCS: 52001; 80053; 81001; 85025; 85610; 87086; 96374; 99234; 99284; 99285; G0378; J1100; J1171; J2405; J2704; J3010

== ENCOUNTER → 2024-05-21 14:06 | Outpatient (CLI) | payer MEDICARE, SELFPAY ==
[2024-03-25 13:21] VITALS: BMI 30.7
[2024-05-21 15:59] LABS: Prostate Specific Antigen 2.26 ng/mL (0.10-4.00)
== END ==
PROVIDERS: PCP Internal Medicine; Referring Provider Urology; Visit Provider Urology
DX: R33.8 Other retention of urine (principal); Z85.46 Personal history of malignant neoplasm of prostate
CPT/HCPCS: 36415; 84153

== ENCOUNTER → 2024-11-10 12:42 | Outpatient (CLI) | payer MEDICARE, SELFPAY ==
[2024-03-25 13:21] VITALS: BMI 30.7
--- NOTE | 2024-11-10 12:43 | DI.RAD.S_ITS ---
PROCEDURE: XR LUMBAR SPINE MIN 4V INDICATIONS: Rule out fracture TECHNIQUE: 5 views of the lumbar spine were acquired, including bilateral oblique views. COMPARISON: [facility], CT, CT ABDOMEN PELVIS W CON, 03/04/2024, 19:48. FINDINGS AND IMPRESSION: Moderate to severe spondylotic changes, with multilevel disc space height loss, facet arthropathy, and osteophytes. L5 pars defects, with 0.8 cm of anterolisthesis. This is likely nonacute. No traumatic subluxation. No displaced fracture. Partially seen left hip arthroplasty. Mild levoconvex lumbar spinal curvature. If there is high concern for further derangement, consider MRI evaluation. Dictated by: Maximilian Beauchamp M.D. on 11/10/2024 at 13:36 Approved by: Maximilian Beauchamp M.D. on 11/10/2024 at 13:38
== END ==
PROVIDERS: PCP Internal Medicine; Referring Provider Internal Medicine; Visit Provider Chiropractor
DX: S30.0XXA Contusion of lower back and pelvis, initial encounter (principal); M47.816 Spondylosis without myelopathy or radiculopathy, lumbar region; M43.8X6 Other specified deforming dorsopathies, lumbar region; X58.XXXA Exposure to other specified factors, initial encounter; Z96.642 Presence of left artificial hip joint
CPT/HCPCS: 72110

== ENCOUNTER → 2024-12-28 13:36 | Outpatient (CLI) | payer MEDICARE, SELFPAY ==
[2024-03-25 13:21] VITALS: BMI 30.7
[2024-12-28 15:48] LABS: Prostate Specific Antigen 4.22 ng/mL (0.10-4.00)
== END ==
PROVIDERS: PCP Internal Medicine; Referring Provider Urology; Visit Provider Urology
DX: C61 Malignant neoplasm of prostate (principal)
CPT/HCPCS: 36415; 84153